=== PATIENT | female | born 1940 | race Caucasian/White ===

== ENCOUNTER 2017-05-29 11:24 | Inpatient (IN) ==
[2017-05-29 11:47] LABS: ALLEN TEST YES; BLOOD TYPE ARTERIAL; DRAW SITE R RADIAL; METHB 0.8 % (0.0-1.5); MODALITY ROOM AIR; O2(CT) 16.4 mL/dL (15.0-23.0); PCO2(98.6) 48 mmHg (35-45); PO2(98.6) 57 mmHg (60-100); SAMPLE BLOOD; SAO2 94.1 % (95.0-100.0); THB 12.8 g/dL (11.5-17.4)
--- NOTE | 2017-05-29 11:47 | Diag Imaging Result Doc PS360 ---
EXAM: CHEST-PORTABLE HISTORY: AMS TECHNIQUE: AP portable upright at 1135 COMMENT: There is scoliosis of the thoracic spine with convexity to the right. There is no evidence of acute cardiac or pulmonary disease and compared to 11/19/2010 there is been no significant change in the appearance of the chest. IMPRESSION: Stable chest. Electronically signed by Cyril Alvarez 05/29/2017 11:45 AM
--- NOTE | 2017-05-29 12:16 | Diag Imaging Result Doc PS360 ---
EXAM: HEAD W/O CONTRAST HISTORY: AMS TECHNIQUE: CT of the head without contrast with dose reduction (clarity.) COMMENT: There is extensive abnormal lucency throughout the white matter both hemispheres with some cortical encephalomalacia in the right parietal lobe. There is no evidence of bleed mass effect or abnormal extra-axial fluid collection. The calvarium is intact. There is no evidence of acute paranasal sinus disease. IMPRESSION: Extensive chronic microvascular white matter disease. No definite evidence of acute disease. Electronically signed by Cyril Alvarez 05/29/2017 12:14 PM
[2017-05-29 12:36] LABS: MANUAL DIFF NEEDED? NO
[2017-05-29 12:42] LABS: BASO% 0.4 % (0.0-0.8); EOS% 6.9 % (0.0-10.0); HEMATOCRIT 38.5 % (37.0-47.0); HEMOGLOBIN 12.7 g/dL (12.0-16.0); LYMPH# 2.52 X1000 (1.2-3.4); LYMPH% 24.8 % (20.5-51.1); MCH 32.4 PG (27-31); MCV 98.2 FL (81-99); MONO# 1.01 X1000 (0.11-0.59); MONO% 9.9 % (1.7-9.3); PLT 290 X1000 (130-400); RBC 3.92 XMIL (4.2-5.4)
[2017-05-29 12:50] LABS: INR 0.98; PROTIME 10.3 Seconds (9.2-11.7); PTT 24.5 Seconds (22.0-36.0)
[2017-05-29 12:59] LABS: URINE MICRO REVIEW NEEDED? NO; URINE SOURCE CATH
[2017-05-29 13:03] LABS: BILIRUBIN URINE NEGATIVE (NEGATIVE); BLOOD URINE NEGATIVE (NEGATIVE); COLOR YELLOW; GLUCOSE URINE NEGATIVE (NEGATIVE); LEUKOCYTES URINE SMALL (NEGATIVE); NITRITE URINE NEGATIVE (NEGATIVE); PROTEIN URINE NEGATIVE (NEGATIVE); SP GRAVITY URINE 1.015; TURBIDITY URINE CLEAR (CLEAR); UROBILINOGEN URINE NORMAL (NORMAL)
[2017-05-29 13:04] LABS: UR EPITHELIAL CELLS <10 /HPF (<10); URINE BACTERIA 2+ /HPF; URINE CULTURE NEEDED? YES; URINE RBC <10 /HPF (<10)
[2017-05-29 13:17] LABS: CALCIUM 9.2 mg/dL (8.8-10.2); POTASSIUM 4.3 mmol/L (3.5-5.1); TOTAL BILIRUBIN 0.32 mg/dL (0.20-1.00)
[2017-05-29 13:31] LABS: UR AMPHETAMINES QUAL NONE DETECTED (NONE DETECT); UR BARBITUATES QUAL NONE DETECTED (NONE DETECT); UR BENZODIAZEPIN QUAL NONE DETECTED (NONE DETECT); UR CANNABINOIDS QUAL NONE DETECTED (NONE DETECT); UR COCAINE QUAL NONE DETECTED (NONE DETECT); UR METHADONE QUAL NONE DETECTED (NONE DETECT); UR OPIATES QUAL NONE DETECTED (NONE DETECT); UR OXYCODONE QUAL NONE DETECTED (NONE DETECT); UR PCP QUAL NONE DETECTED (NONE DETECT)
[2017-05-29] MEDS ORDERED: ROCEPHIN 1 GM/NS 1 GM/50 ML IVPB IV ONE (13:48)
[2017-05-29] MEDS ORDERED: ZOFRAN PO PRN (16:02)
[2017-05-29] MEDS ORDERED: NS 1,000 ML IV SCH (16:15)
--- NOTE | 2017-05-29 16:45 | HISTORY AND PHYSICAL ---
CHIEF COMPLAINT: Altered mental status. HISTORY OF PRESENT ILLNESS: Mrs. Grossman is a 77-year-old female with a history of hypertension, hyperlipidemia, and depression, arthritis and GERD who presents from home with altered mental status and questionable stroke-like symptoms. The patient is a poor historian and is somewhat altered now so at the bedside is able to give a fairly accurate history. She woke up this morning and tried to get out of bed and reportedly slid to the floor. Her family got her up in a chair and she had a blank stare on her face and was not verbally responsive. EMS was called and the patient was brought to the ER. A head CT was done, which showed chronic changes but nothing acute. Laboratory data is largely unremarkable. Chest x-ray does not show anything acute. On physical exam, the patient is confused but she follows commands and has a global weakness with left upper and lower extremity slightly more weak than the right. She has a pacemaker so MRI is unable to be done so she is going to be admitted for further treatment and evaluation. PAST MEDICAL HISTORY: 1. Hypothyroidism. 2. Hypertension. 3. Hyperlipidemia. 4. Arthritis. 5. Anxiety and depression. 6. Unknown cardiac rhythm disorder requiring pacemaker. SURGICAL HISTORY: She had a total left knee arthroplasty and ovarian cyst removal. She has also had a pacemaker placed. SOCIAL HISTORY: She does not smoke, drink or use drugs. is at the bedside. FAMILY HISTORY: Noncontributory. REVIEW OF SYSTEMS: A 14 point review of systems was obtained and found to be negative with the exception of the HPI. ALLERGIES: No known allergies. HOME MEDICATIONS: Norvasc 2.5 mg daily. Aspirin 81 mg daily. Citalopram 40 mg daily. Klonopin 0.5-1 mg p.o. b.i.d. as necessary. Dicyclomine 20 mg 4 times a day. Toxey 1 every 8 hours as needed Synthroid 75 mcg daily. Antivert 25 mg t.i.d. Mobic 7.5 mg daily. Prilosec 20 mg daily. Zofran 4 mg every 6 hours as needed. Pravastatin 40 mg daily. Triamterene hydrochlorothiazide 1 daily. PHYSICAL EXAMINATION: VITAL SIGNS: Blood pressure is 149/81, heart rate 66, respiratory rate is 20, O2 saturation 96% on 2 L. Temperature is 98 degrees. GENERAL: This is an elderly 77-year-old female, lying in hospital bed in no acute distress. NEUROLOGIC: The patient is awake, alert, but she is confused. She does have some mild will upper and lower extremity weakness on the left as compared to the right. She has poor rapid alternating movement. She is blind in her left eye but does have poor peripheral vision on the right. HEENT: Head is atraumatic and normocephalic. Her pupils are equal, and sluggish bilaterally. Oral mucosa is moist. Trachea is midline. There is no JVD. CHEST: Clear to auscultation bilaterally. CV: Regular rate and rhythm. S1, S2 is noted. GI: Soft, nondistended, nontender. Bowel sounds are positive. EXTREMITIES: Trace edema. Pulses palpable but diminished. DIAGNOSTIC DATA: Head CT, extensive chronic microvascular white matter disease. No definite evidence of acute disease. Chest x-ray is negative. EKG shows paced rhythm. WBC 10.17, hemoglobin 12.7, hematocrit 38.5, platelet count 290,000. INR 0.98. ABG on room air pH 7.4, CO2 48, O2 57, bicarb 27.9, lactate 0.6. Sodium 140, potassium 4.2, chloride 100, CO2 27, anion gap 13, BUN 22, creatinine 1.2. Glucose 106. LFTs within normal limits. Troponin negative. Albumin 4. UA shows possible UTI. Toxicology is negative. ASSESSMENT AND PLAN: 1. Stroke-like symptoms: We cannot do an MRI, given her pacemaker. Will recheck a CT either tomorrow or Wednesday morning. Monitor neuro status. Check echo and carotids. Make sure to continue aspirin and statin. Check a lipid panel and hemoglobin A1c in the morning. We will also consult physical therapy, social work and speech therapy. 2. Hypertension: We are going to hold off on any antihypertensives for now in case she has had a stroke to allow for permissive hypertension. Add p.r.n. IV if necessary systolic greater than 210. 3. Questionable urinary tract infection: Will continue Rocephin which was started in the ER, and follow cultures. 4. Hypothyroidism: We are going to check a thyroid panel in the morning. Continue Synthroid. 5. Deep vein thrombosis prophylaxis with Lovenox. Further recommendations to follow. Dictated by SUSAN Washington for Justen Ku MD cc: SUSAN Washington MD I have seen and examined patients and I agree with above evaluation and plan. Patient has been progressively getting weaker and confused. She is on chronic pain meds and was requesting fro more pain meds when I saw her. Ass: AMS likely from drugs side effect. patient has no focal signs. I doubt she has CVA. MTDD
--- NOTE | 2017-05-29 17:38 | PROVIDER DOCUMENTATION ---
This chart was entered by Tiff Nesbitt Scribe, acting as scribe for Chalo Caraballo MD. HPI-Neurological Disorder - General Stated Complaint: ams/failure to thrieve Time Seen by Provider: 05/29/17 11:18 Source: patient Allergies/Adverse Reactions: Patient Allergies Allergy/AdvReac Type Severity Reaction Status Date / Time No Known Allergies Allergy Verified 05/29/17 11:36 Home Medications: Home Medication List Medication Instructions Recorded Confirmed Last Taken Type Amlodipine Besylate [Norvasc] 2.5 mg PO DAILY 05/29/17 05/29/17 Unknown History Aspirin [Low Dose Aspirin EC] 81 mg PO DAILY 05/29/17 05/29/17 Unknown History Citalopram Hydrobromide 40 mg PO DAILY 05/29/17 05/29/17 Unknown History [Citalopram HBr] Clonazepam [Klonopin] 0.5 - 1 tab PO BID PRN 05/29/17 05/29/17 Unknown History Dicyclomine HCl 20 mg PO 4XDAY 05/29/17 05/29/17 Unknown History Hydrocodone/Acetaminophen [[place] 1 each PO Q8H PRN 05/29/17 05/29/17 Unknown History 10-325 Tablet] Levothyroxine [Synthroid] 75 microgm PO DAILY 05/29/17 05/29/17 Unknown History Meclizine HCl [Antivert] 25 mg PO TID PRN 05/29/17 05/29/17 Unknown History Meloxicam [Mobic] 7.5 mg PO DAILY 05/29/17 05/29/17 Unknown History Omeprazole [Prilosec] 20 mg PO DAILY 05/29/17 05/29/17 Unknown History Ondansetron HCl [Zofran] 4 mg PO Q6H PRN 05/29/17 05/29/17 Unknown History Pravastatin Sodium 40 mg PO DAILY 05/29/17 05/29/17 Unknown History Triamterene/Hydrochlorothiazid 1 each PO DAILY 05/29/17 05/29/17 Unknown History [Triamterene-Hctz 37.5-25 mg Tb] - History of Present Illness-Neuro Nature of Presenting Problem: Pt is a 77 year old female sent from home and came to the ED with a cc of general weakness and altered mental status. Pt has no family and did not answer questions or follow commands. Severity: reports: mild Onset/Duration: reports: unsure Timing: reports: still present Context: reports: other (altered mental status) Character of Altered Mental Status: reports: disoriented, decreased responsiveness Any recent trauma/injury?: reports: none Cognitive Baseline: poor alertness Associated Symptoms: reports: weakness Similar Symptoms Previously?: No Recently seen or treated by another doctor?: No Review of Systems - Adult - REVIEW OF SYSTEMS - ADULT ROS:: unobtainable per condition Constitutional: reports: no symptoms reported Eyes: reports: no symptoms reported Ears, Nose, Mouth & Throat: reports: no symptoms reported Cardiovascular: reports: no symptoms reported Respiratory: reports: no symptoms reported Gastrointestinal: reports: no symptoms reported Genitourinary: reports: no symptoms reported Musculoskeletal: reports: no symptoms reported Integumentary: reports: no symptoms reported Neurological: reports: no symptoms reported Psychiatric: reports: no symptoms reported Endocrine: reports: no symptoms reported Hematologic/Lymphatic: reports: no symptoms reported Allergic/Immunologic: reports: no symptoms reported All Other Systems: Reviewed and Negative Past History - Adult - PAST MEDICAL HISTORY-ADULT Review of Records: reports: Old Records Reviewed, Nursing Assessment Review Physical Exam- Neurological - Physical Exam-Neuro Initial Vital Signs Reviewed: Yes General Appearance: alert Eye Exam: bilateral eye: other (blind in left eye; strabismus) HENMT: normocephalic/atraumatic, moist mucous membranes Head Injury: no evidence of injury Neck: non-tender Respiratory: chest non-tender, lungs clear Cardiovascular: normal peripheral pulses, regular rate, rhythm Abdominal Exam: normal bowel sounds, non tender, soft 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: abnormal eye position Neurologic: other (catatonia although pretective reflex intact) Integumentary: other (bilat knee scars) Psych/Mental Status: disoriented x 3 Progress - PLAN OF CARE/RESULTS Progress/Plan/Lab Results: Vital Signs - 8 hr 05/29/17 11:25 05/29/17 12:25 Temperature 98.8 F Pulse Rate 61 60 Respiratory Rate 16 19 Blood Pressure 151/96 138/73 O2 Sat by Pulse Oximetry 93 L 99 Laboratory Results - last 24 hr 05/29/17 05/29/17 05/29/17 11:35 12:25 12:25 WBC 10.17 RBC 3.92 L Hgb 12.7 Hct 38.5 MCV 98.2 MCH 32.4 H MCHC 33.0 RDW Std Deviation 15.2 H Plt Count 290 MPV 10.0 Neut % (Auto) 58.0 Lymph % (Auto) 24.8 [place] % (Auto) 9.9 H Eos % (Auto) 6.9 Baso % (Auto) 0.4 Neut # (Auto) 5.90 Lymph # (Auto) 2.52 [place] # (Auto) 1.01 H Eos # (Auto) 0.70 Baso # (Auto) 0.04 PT INR PTT (Actin FS) Specimen Type ARTERIAL Sample Site R RADIAL pH 7.40 pCO2 48 H pO2 57 L HCO3 27.9 H Base Excess 4.0 H Oxyhemoglobin 91.1 L ABG O2 Sat (Calculated) 16.4 ABG O2 Saturation 94.1 L ABG Carboxyhemoglobin 2.40 ABG Methemoglobin 0.8 Al Test YES A-a O2 Difference 33.0 Total Hemoglobin 12.8 Lactate 0.60 Blood Gas Modality ROOM AIR FiO2 % 21.0 Sodium Potassium Chloride Carbon Dioxide Anion Gap BUN Creatinine Estimated GFR/1.73 m2 BUN/Creatinine Ratio Glucose Calculated Osmolality Calcium Total Bilirubin AST ALT Alkaline Phosphatase Creatine Kinase Troponin T Total Protein Albumin Globulin Albumin/Globulin Ratio Plasma Lactate Free T4 Urine Source Urine Color Urine Turbidity Urine pH Ur Specific [place] Urine Protein Ur Glucose (Stick) Ur Ketones (Stick) Urine Blood Urine Nitrite Urine Bilirubin Urobilinogen Dipstick Urine Leukocytes Urine WBC (Auto) Urine RBC (Auto) U Epithel Cells (Auto) Urine Bacteria (Auto) Urine Opiates Screen Ur Oxycodone Screen Ur Methadone, Qual Ur Barbiturates Screen Ur Phencyclidine Scrn Ur Amphetamines Screen U Benzodiazepines Scrn Urine Cocaine Screen U Cannabinoids Screen Plasma/Serum Ethyl Alc 05/29/17 05/29/17 05/29/17 12:25 12:25 12:25 WBC RBC Hgb Hct MCV MCH MCHC RDW Std Deviation Plt Count MPV Neut % (Auto) Lymph % (Auto) [place] % (Auto) Eos % (Auto) Baso % (Auto) Neut # (Auto) Lymph # (Auto) [place] # (Auto) Eos # (Auto) Baso # (Auto) PT 10.3 INR 0.98 PTT (Actin FS) 24.5 Specimen Type Sample Site pH pCO2 pO2 HCO3 Base Excess Oxyhemoglobin ABG O2 Sat (Calculated) ABG O2 Saturation ABG Carboxyhemoglobin ABG Methemoglobin Al Test A-a O2 Difference Total Hemoglobin Lactate Blood Gas Modality FiO2 % Sodium 140 Potassium 4.3 Chloride 100 Carbon Dioxide 27 Anion Gap 13 BUN 22 Creatinine 1.2 H Estimated GFR/1.73 m2 44 BUN/Creatinine Ratio 18 Glucose 106 H Calculated Osmolality 283 Calcium 9.2 Total Bilirubin 0.32 AST 22 ALT 13 Alkaline Phosphatase 57 Creatine Kinase 169 Troponin T Total Protein 8.0 Albumin 4.0 Globulin 4.0 Albumin/Globulin Ratio 1.0 Plasma Lactate 0.7 Free T4 Urine Source Urine Color Urine Turbidity Urine pH Ur Specific [place] Urine Protein Ur Glucose (Stick) Ur Ketones (Stick) Urine Blood Urine Nitrite Urine Bilirubin Urobilinogen Dipstick Urine Leukocytes Urine WBC (Auto) Urine RBC (Auto) U Epithel Cells (Auto) Urine Bacteria (Auto) Urine Opiates Screen Ur Oxycodone Screen Ur Methadone, Qual Ur Barbiturates Screen Ur Phencyclidine Scrn Ur Amphetamines Screen U Benzodiazepines Scrn Urine Cocaine Screen U Cannabinoids Screen Plasma/Serum Ethyl Alc 05/29/17 05/29/17 05/29/17 12:25 12:25 12:45 WBC RBC Hgb Hct MCV MCH MCHC RDW Std Deviation Plt Count MPV Neut % (Auto) Lymph % (Auto) [place] % (Auto) Eos % (Auto) Baso % (Auto) Neut # (Auto) Lymph # (Auto) [place] # (Auto) Eos # (Auto) Baso # (Auto) PT INR PTT (Actin FS) Specimen Type Sample Site pH pCO2 pO2 HCO3 Base Excess Oxyhemoglobin ABG O2 Sat (Calculated) ABG O2 Saturation ABG Carboxyhemoglobin ABG Methemoglobin Al Test A-a O2 Difference Total Hemoglobin Lactate Blood Gas Modality FiO2 % Sodium Potassium Chloride Carbon Dioxide Anion Gap BUN Creatinine Estimated GFR/1.73 m2 BUN/Creatinine Ratio Glucose Calculated Osmolality Calcium Total Bilirubin AST ALT Alkaline Phosphatase Creatine Kinase Troponin T < 0.010 Total Protein Albumin Globulin Albumin/Globulin Ratio Plasma Lactate Free T4 1.26 Urine Source CATH Urine Color YELLOW Urine Turbidity CLEAR Urine pH 7.0 Ur Specific [place] 1.015 Urine Protein NEGATIVE Ur Glucose (Stick) NEGATIVE Ur Ketones (Stick) NEGATIVE Urine Blood NEGATIVE Urine Nitrite NEGATIVE Urine Bilirubin NEGATIVE Urobilinogen Dipstick NORMAL Urine Leukocytes SMALL A Urine WBC (Auto) 10-20 A Urine RBC (Auto) <10 U Epithel Cells (Auto) <10 Urine Bacteria (Auto) 2+ Urine Opiates Screen Ur Oxycodone Screen Ur Methadone, Qual Ur Barbiturates Screen Ur Phencyclidine Scrn Ur Amphetamines Screen U Benzodiazepines Scrn Urine Cocaine Screen U Cannabinoids Screen Plasma/Serum Ethyl Alc 05/29/17 12:45 WBC RBC Hgb Hct MCV MCH MCHC RDW Std Deviation Plt Count MPV Neut % (Auto) Lymph % (Auto) [place] % (Auto) Eos % (Auto) Baso % (Auto) Neut # (Auto) Lymph # (Auto) [place] # (Auto) Eos # (Auto) Baso # (Auto) PT INR PTT (Actin FS) Specimen Type Sample Site pH pCO2 pO2 HCO3 Base Excess Oxyhemoglobin ABG O2 Sat (Calculated) ABG O2 Saturation ABG Carboxyhemoglobin ABG Methemoglobin Al Test A-a O2 Difference Total Hemoglobin Lactate Blood Gas Modality FiO2 % Sodium Potassium Chloride Carbon Dioxide Anion Gap BUN Creatinine Estimated GFR/1.73 m2 BUN/Creatinine Ratio Glucose Calculated Osmolality Calcium Total Bilirubin AST ALT Alkaline Phosphatase Creatine Kinase Troponin T Total Protein Albumin Globulin Albumin/Globulin Ratio Plasma Lactate Free T4 Urine Source Urine Color Urine Turbidity Urine pH Ur Specific [place] Urine Protein Ur Glucose (Stick) Ur Ketones (Stick) Urine Blood Urine Nitrite Urine Bilirubin Urobilinogen Dipstick Urine Leukocytes Urine WBC (Auto) Urine RBC (Auto) U Epithel Cells (Auto) Urine Bacteria (Auto) Urine Opiates Screen NONE DETECTED Ur Oxycodone Screen NONE DETECTED Ur Methadone, Qual NONE DETECTED Ur Barbiturates Screen NONE DETECTED Ur Phencyclidine Scrn NONE DETECTED Ur Amphetamines Screen NONE DETECTED U Benzodiazepines Scrn NONE DETECTED Urine Cocaine Screen NONE DETECTED U Cannabinoids Screen NONE DETECTED Plasma/Serum Ethyl Alc Orders Category Date Time Status Admit - [facility] Routine AdmDCTranf 05/29/17 16:02 Ordered Activity - Strict Bedrest Q1D Care 05/29/17 16:02 Active Aspiration Precautions DIRECTED Care 05/29/17 16:02 Active Cardiac Monitoring DIRECTED Care 05/29/17 11:26 Completed Elevate Head of Bed DIRECTED Care 05/29/17 16:02 Active Finger Stick Blood Sugar (ED) DIRECTED Care 05/29/17 11:26 Completed IV Insertion ORDERED Care 05/29/17 16:02 Completed Intake and Output-Strict ORDERED Care 05/29/17 16:02 Active Neurological Check ORDERED Care 05/29/17 16:02 Active Saline Loc NOW Care 05/29/17 11:26 Completed Straight Catheterization ORDERED Care 05/29/17 11:26 Completed Z-Document. for Tele Applied ORDERED Care 05/29/17 16:02 Active CHEST-PORTABLE [RAD] Stat Exams 05/29/17 11:26 Completed HEAD W/O CONTRAST [CT] Stat Exams 05/29/17 11:27 Completed ABG [RESP] Routine Lab 05/29/17 11:35 Completed ALCOHOL BLOOD Stat Lab 05/29/17 12:25 Completed CBC WITH ELECTRONIC DIFF [HEME] Stat Lab 05/29/17 12:25 Completed CK PROFILE [SP CHEM] Stat Lab 05/29/17 12:25 Completed COMPREHENSIVE METABOLIC PANEL [CHEM] Stat Lab 05/29/17 12:25 Completed LACTATE, PLASMA [CHEM] Stat Lab 05/29/17 12:25 Completed LIPID PROFILE W/DIR LDL [LIPIDS] Routine Lab 05/30/17 06:00 Ordered PROTIME WITH INR [COAG] Stat Lab 05/29/17 12:25 Completed PTT [COAG] Stat Lab 05/29/17 12:25 Completed TROPONIN T Stat Lab 05/29/17 12:25 Completed URINALYSIS W/POSS RFLX CULT-1 [URINALYSIS] Stat Lab 05/29/17 12:45 Completed URINE CULTURE [RM] Routine Lab 05/29/17 13:15 Received URINE DRUG SCREEN Stat Lab 05/29/17 12:45 Completed Aspirin EC Med 05/30/17 09:00 Active 81 mg PO DAILY CefTRIAXONE 1 GM/NS [Rocephin 1 gm/Ns] Med 05/29/17 13:48 Discontinued 1 gm in 50 ml IV NOW Citalopram [Celexa] Med 05/30/17 09:00 Active 40 mg PO DAILY Dicyclomine [Bentyl] Med 05/29/17 17:00 Active 20 mg PO 4XDAY Levothyroxine [Synthroid] Med 05/30/17 07:00 Active 75 microgm PO DAILY@0700 Omeprazole [Prilosec] Med 05/30/17 09:00 Active 20 mg PO DAILY Ondansetron [Zofran] Med 05/29/17 16:02 Active 4 mg PO Q6H PRN PRN PRAVAstatin [Pravachol] Med 05/30/17 09:00 Discontinued 40 mg PO DAILY Pulse Oximetry Stat Oth 05/29/17 11:26 Completed Telemetry [OM.EQ] Routine Oth 05/29/17 16:02 Active EKG [EKG] Stat Ther 05/29/17 11:26 Ordered Physical Therapy Eval/Treatment [OM.PT] Routine Ther 05/29/17 16:02 Active Speech Evaluation [OM.SPT] Routine Ther 05/29/17 16:02 Active Transfer/Admit Order [TRANSFER] Routine Transfer 05/29/17 14:40 Completed Result Diagrams: 05/29/17 12:25 05/29/17 12:25 - REASSESSMENT Reassessment #1 Time Reassessed: 11:24 (family came and discussed with Dr. Caraballo that pt was seen normal last night. This morning pt was shaking and not talking. ) Reassessment #2 Time Reassessed: 12:28 (Pt is still not talking. is in the room with pt. ) Status: unchanged - EKG 1 Time of EKG reading by physician:: 11:36 EKG Read and Signed by:: Chalo Caraballo EKG Interpretation (*Must complete 3 of following elements*): Normal Rate: 64 Rhythm: NSR - XRAY 1 XRAY Study: Chest (STABLE) - CT/MRI 1 CT Study: Head (extensive chronic microvascular white matter disease no acute disease) - CONSULTS/PCP/HOSPITALIST Notification #1 *Consult/PCP/Hospitalist*: Dr. Ku Time Discussed: 13:48 Consult Disposition: Admit Departure - Departure Date of Disposition Decision: 05/29/17 Time of Disposition Decision: 13:48 DIAGNOSIS: TIA (transient ischemic attack) Disposition: ADMITTED INPATIENT 09 Certified Medical Emergency: Emergent Condition: Stable - Critical Care Note This patient required my direct & personal management of CC.: Yes Total Time (mins): 35 Critical Care Statement: This patient required my direct personal management to treat or rule out processes, the absence of which, could potentiallly result in sudden, clinically significant life or limb threatening deterioration. Attestation - Physician/ SYLVIA Attestation Patient care was provided by Advanced Practice Provider:: No The physician spent face to face time with patient:: Yes Advanced Practice Provider documentation review:: Supervising physician onsite and consulted in the evaluation and care of this patient. The physician did have a face to face encounter with the patient. This chart was documented by the indicated scribe, (Tiff Nesbitt Scribe) and accurately reflects the services I performed and decisions made by me, Chalo Caraballo MD, as attested by the provider's signature.
[2017-05-29] MEDS: NS 1,000 ML IV SCH (18:04)
[2017-05-29] MEDS: NORCO-10 PO SCH ×2 (18:08→20:47)
[2017-05-29] MEDS: ROCEPHIN 1 GM/NS 1 GM/50 ML IVPB IV SCH (18:09)
[2017-05-29] MEDS: BENTYL PO SCH ×2 (18:09→20:46)
[2017-05-29] MEDS ORDERED: PNEUMOVAX 23 IM ONE (18:51)
[2017-05-29] MEDS: LIPITOR PO SCH (20:51)
[2017-05-30] MEDS: SYNTHROID PO SCH (06:01)
[2017-05-30 06:17] LABS: HEMATOCRIT 36.7 % (37.0-47.0); HEMOGLOBIN 11.9 g/dL (12.0-16.0); MCH 31.5 PG (27-31); MCHC 32.4 g/dL (33-37); MCV 97.1 FL (81-99); MPV 10.4 FL (7.4-10.4); RBC 3.78 XMIL (4.2-5.4)
[2017-05-30 06:27] LABS: HEMOGLOBIN A1C 5.6 % (4.8-6.0)
[2017-05-30 06:50] LABS: CALCIUM 9.4 mg/dL (8.8-10.2); POTASSIUM 4.4 mmol/L (3.5-5.1)
[2017-05-30] MEDS ORDERED: PRAVACHOL PO SCH (09:00)
[2017-05-30] MEDS: PRILOSEC PO SCH (10:17)
[2017-05-30] MEDS: BENTYL PO SCH ×4 (10:17→20:27)
[2017-05-30] MEDS: LOVENOX SUBQ SCH (10:18)
[2017-05-30] MEDS: CELEXA PO SCH (10:18)
[2017-05-30] MEDS: ASPIRIN EC PO SCH (10:18)
[2017-05-30] MEDS: NORCO-10 PO SCH ×2 (10:18→20:27)
[2017-05-30] MEDS: NS 1,000 ML IV SCH ×2 (10:19→17:53)
--- NOTE | 2017-05-30 15:42 | PROGRESS NOTE ---
DATE: 05/30/2017 The patient is a 77-year-old who presented with altered mental status. She has a history of hypertension, hyperlipidemia, depression, arthritis gastroesophageal reflux. Presented from home with altered mental status, questionable stroke-like symptoms. The patient a poor historian, somewhat altered, so her gave account of the events that preceded this. Woke up in the morning, tried to get out of bed and, reportedly, slid to the floor. The family got her up in a chair. She had a blank stare on her face and not verbally responsive. EMS was called and came to the emergency room. CT of the head was done. It showed chronic changes, but nothing acute. Laboratory at mostly unremarkable. Chest x-ray did not show anything acute. She was confused, but followed commands, had a global weakness. Left upper and lower extremities slightly more weak than the right. She had a pacemaker, so MRI was not done. She had a CT scan done. PAST MEDICAL HISTORY: 1. Hypothyroidism. 2. Hypertension. 3. Hyperlipidemia. 4. Arthritis. 5. Anxiety/depression. 6. Unknown cardiac rhythm disorder, requiring pacemaker. PAST SURGICAL HISTORY: 1. Total left knee arthroplasty. 2. Ovarian cyst removed. 3. Pacemaker placement. DIAGNOSES/PLAN: She was admitted with: 1. Questionable cerebrovascular accident-like symptoms. Could not do an MRI because of pacemaker. CT is supposed to be done today. Continue neuro checks, continue aspirin and statin. Check a hemoglobin A1c today. Family feels she is better, she is more awake and alert. Still pretty weak. 2. Hypertension. 3. Questionable urinary tract infection. She was treated with Rocephin. 4. Hypothyroidism. She appears to be euthyroid. MEDICATIONS: On review of her orders, she is on: 1. Aspirin 81 mg daily. 2. Lipitor 40 mg a day. 3. Celexa 40 mg a day. 4. Dicyclomine 20 mg 4 times a day. 5. Lovenox 40 mg subcutaneously q.24 hours. 6. Hydrocodone 10 mg twice a day. 7. Synthroid 75 mcg a day. 8. Normal saline at 85 mL an hour. 9. Prilosec 20 mg a day. 10. Ceftriaxone 1 g q.24 hours. I do not see any change at this point. We will check lab again tomorrow. She is going to have speech and physical therapy. Carotid ultrasound, I think, is scheduled. cc: Al Acosta MD
[2017-05-30] MEDS: ROCEPHIN 1 GM/NS 1 GM/50 ML IVPB IV SCH (17:00)
[2017-05-30] MEDS: LIPITOR PO SCH (20:27)
[2017-05-31] MEDS: SYNTHROID PO SCH (06:15)
--- NOTE | 2017-05-31 06:15 | EKG Report ---
Test Performed on : 05/29/2017 11:36:22 AM Test Reason : AMS Blood Pressure : / mmHG Vent. Rate : 064 BPM Atrial Rate : 064 BPM P-R Int : 188 ms QRS Dur : 092 ms QT Int : 428 ms P-R-T Axes : 000 076 048 degrees QTc Int : 441 ms Normal sinus rhythm. Normal ECG When compared with ECG of 19-NOV-2010 09:16, Nonspecific T wave abnormality now evident in Inferior leads QT has shortened Unconfirmed Result
[2017-05-31 06:32] LABS: HEMATOCRIT 39.9 % (37.0-47.0); HEMOGLOBIN 13.3 g/dL (12.0-16.0); MCH 31.7 PG (27-31); MCHC 33.3 g/dL (33-37); MPV 10.3 FL (7.4-10.4); RBC 4.2 XMIL (4.2-5.4)
[2017-05-31 07:00] LABS: CALCIUM 9.4 mg/dL (8.8-10.2)
--- NOTE | 2017-05-31 07:31 | EKG Report ---
Test Performed on : 05/29/2017 4:08:22 PM Test Reason : No Order in [employer] Blood Pressure : / mmHG Vent. Rate : 064 BPM Atrial Rate : 064 BPM P-R Int : 226 ms QRS Dur : 090 ms QT Int : 436 ms P-R-T Axes : 077 -10 056 degrees QTc Int : 449 ms Atrial-paced rhythm with prolonged AV conduction Abnormal ECG When compared with ECG of 29-MAY-2017 11:36, (Unconfirmed) Electronic atrial pacemaker has replaced Sinus rhythm. Questionable change in QRS axis Confirmed by Duglas Hernandez DO ([id number]) on 06/01/2017 7:25:07 AM
--- NOTE | 2017-05-31 09:57 | PROGRESS NOTE ---
DATE: 05/31/2017 SUBJECTIVE: Recall, patient was admitted. A 77-year-old admitted on the . Brought in because of altered mental status. A 77-year-old with a history of hypertension, hyperlipidemia, depression, arthritis, gastroesophageal reflux disease. Presented from home with altered mental status. They thought she was having stroke-like symptoms. The patient is a poor historian but the family was able to fill in the gaps. On physical exam in the emergency room, she followed commands and had global weakness with left upper and lower extremity more weak than the right. She has had a long history of anxiety and depression. She was admitted with altered mental status. I do not know that they found any focal neurologic changes. She is better but she is still pretty weak. She is requesting more pain medicine. She does not feel twice a day is strong enough but she is awake and alert. She wants her Mccormick catheter in another day because she just does not feel strong enough to be able to go to the bathroom. PHYSICAL EXAMINATION: Vital Signs: Today, temperature 98.7 degrees, pulse 87, respirations 24, and blood pressure 194/82. Lungs: Clear anterolateral. Cardiovascular Examination: Regular rhythm and rate without murmur or S3. Abdomen: No complaints. Extremities: No pedal edema. Is and Os: Urine output was over 3 L. LAB: From this morning, white count 11,910, hematocrit 39, platelet count 237,000. Sodium 137, potassium 4, chloride 99, BUN 18, creatinine 1.2 which has come down from 1.4 on the . ASSESSMENT AND PLAN: 1. Generalized weakness. Suspect multifactorial but I suspect multiple medications so we will look through and see what medicines we can discontinue. She is adamant that she wants more of her pain medicine so we will go up to 3 times a day on that. 2. Hypertension. 3. Questionable urinary tract infection. She had some sediment, was put on Rocephin. 4. Hypothyroidism, appears to be history. She is euthyroid at the present time. 5. Review of her orders, review of her current medications. Aspirin 81 mg a day, Lipitor 40 mg a day, Celexa 40 mg a day. She gets her Bentyl 20 mg 4 times a day. She is on Lovenox for deep venous thrombosis prophylaxis. She is getting normal saline at 85 mL an hour. She gets her Synthroid, Prilosec at 20 mg a day. She is getting hydrocodone right now twice a day. We will go up to three times a day on her hydrocodone. She is already had speech therapy and physical therapy. I had a discussion with the importance of her getting her strength back. If she cannot walk, we will have to pursue rehab or even a penitentiary so it is imperative that she get some strength back in her legs. cc: Al Acosta MD
[2017-05-31] MEDS: CELEXA PO SCH (10:00)
[2017-05-31] MEDS: BENTYL PO SCH ×4 (10:00→21:35)
[2017-05-31] MEDS: PRILOSEC PO SCH (10:01)
[2017-05-31] MEDS: ASPIRIN EC PO SCH (10:01)
[2017-05-31] MEDS: LOVENOX SUBQ SCH (10:02)
--- NOTE | 2017-05-31 14:02 | ECHO REPORT ---
ORDER DATE: 05/29/2017 INDICATION: CVA versus TIA. FINDINGS: 1. Right atrium is normal in size at 2.9 cm. 2. Moderate tricuspid regurgitation. RV systolic pressure of 57. 3. Normal RV size and systolic function. 4. Trace pulmonic insufficiency. 5. Normal left atrial size with a dimension of 3.8 cm. 6. No mitral valve prolapse. Mild mitral regurgitation. There is significant mitral annular calcification noted. There is the suggestion of moderate mitral stenosis. Mean gradient of 6. Valve area was calculated at 2.7. 7. Normal LV size, end-diastolic dimension of 3.3. Borderline mild left ventricular hypertrophy with a posterior and interventricular septal wall thickness 1.2 and 1.1 cm respectively. Normal LV systolic function. Calculated EF of 68% with normal wall motion. 8. Aortic valve appears to open well. Although it is somewhat sclerotic, it does not appear stenotic. There is mild aortic insufficiency. The valve is trileaflet. 9. Aorta appears normal in visualized segments. 10. No pericardial effusion seen. cc: MD Micah Bartlett CRNP
[2017-05-31] MEDS: NORCO-10 PO SCH ×2 (15:43→21:35)
[2017-05-31] MEDS: NS 1,000 ML IV SCH (18:56)
[2017-05-31] MEDS: ROCEPHIN 1 GM/NS 1 GM/50 ML IVPB IV SCH (18:57)
[2017-05-31] MEDS: LIPITOR PO SCH (21:35)
[2017-06-01] MEDS: SYNTHROID PO SCH ×2 (05:51→06:34)
[2017-06-01] MEDS: NS 1,000 ML IV SCH (06:34)
[2017-06-01 06:45] LABS: HEMATOCRIT 37.2 % (37.0-47.0); HEMOGLOBIN 12.4 g/dL (12.0-16.0); MCH 31.7 PG (27-31); MCHC 33.3 g/dL (33-37); MCV 95.1 FL (81-99); MPV 10.8 FL (7.4-10.4); RBC 3.91 XMIL (4.2-5.4)
[2017-06-01 07:06] LABS: CALCIUM 8.9 mg/dL (8.8-10.2); POTASSIUM 3.8 mmol/L (3.5-5.1)
--- NOTE | 2017-06-01 10:00 | DISCHARGE SUMMARY ---
ADMISSION DATE: 05/29/2017 DISCHARGE DATE: 06/01/2017 HISTORY OF PRESENT ILLNESS: This is a 77-year-old with a history of hypertension, hyperlipidemia, depression, arthritis, gastroesophageal reflux. Presented from home with altered mental status. Questionable stroke-like symptoms. The patient was a poor historian but family, , stated she was altered. Mental status altered, and confused and lethargic. Woke up the morning of admission, tried to get out of bed, just slid to the floor. Family got her up in a chair. Had a blank stare on her face, not verbally responsive. EMS was called. Patient was brought to the emergency room. Head CT was done which showed chronic changes, nothing acute. Laboratory largely unremarkable. A chest x-ray did not show anything acute but admitted with metabolic encephalopathy, altered mental status. PAST MEDICAL HISTORY: 1. Hypothyroidism. 2. Hypertension. 3. Hyperlipidemia. 4. Arthritis. 5. Anxiety and depression. 6. Unknown cardiac rhythm disorder requiring pacemaker. SURGICAL HISTORY: She has a total left knee arthroplasty in the past, ovarian cyst removed. She has also had a pacemaker placed. HOSPITAL COURSE: The Klonopin was stopped. Her pain medicines were stopped. She woke up, was much more alert. Began physical therapy. She was able to ambulate. She did request that we go back up on her pain medicine because of her back pain but we held the Klonopin. She did well, wanted to go home on 06/01/2017, and felt she could go home. was in agreement with that. DISCHARGE MEDICATIONS: She will go home on aspirin 81 mg daily, Lipitor 40 mg a day. We will stop her Rocephin. We were giving that empirically. Celexa 40 mg a day, Bentyl 20 mg 4 times a day, [place] 10 mg t.i.d., Synthroid 75 mcg a day, Prilosec 20 mg a day, Zofran which she takes 4 mg p.o. q.6 hours p.r.n. Advised them to quit the Klonopin. cc: Al Acosta MD
[2017-06-01] MEDS: PRILOSEC PO SCH (11:33)
[2017-06-01] MEDS: NORCO-10 PO SCH (11:33)
[2017-06-01] MEDS: LOVENOX SUBQ SCH (11:33)
[2017-06-01] MEDS: BENTYL PO SCH (11:33)
[2017-06-01] MEDS: ASPIRIN EC PO SCH (11:33)
[2017-06-01] MEDS: CELEXA PO SCH (11:33)
[2017-06-01 12:03] VITALS: BP 194/81
--- NOTE | 2017-06-01 15:22 | Carotid Study ---
DATE: 05/29/2017 PROCEDURE: Carotid duplex imaging. REFERRING PHYSICIAN: Justen Ku MD. INTERPRETING PHYSICIAN: Johnnie Mai MD. TECH: [place]. INDICATIONS: Altered mental status and left-sided weakness. OBSERVED DATA RIGHT LEFT Brachial Blood Pressure Carotid Pulse Bruits: Carotid/Sub DIAGRAM OF ULTRASOUND IMAGING R L RIGHT INT EXT INT EXT LEFT Vishal (cm/s) Vishal (cm/s) Subclavian 180/0 Subclavian 93/0 CCA Proximal 90/18 CCA Proximal 82/18 CCA Distal 82/18 CCA Distal 75/20 Bulb 86/18 Bulb 75/15 ICA Proximal 132/26 ICA Proximal 211/30 ICA Mid 124/9 ICA Mid 152/22 ICA Distal 133/8 ICA Distal 83/17 ECA 235/11 ECA 241/15 Vertebral 54/19 Vertebral 83/21 Antegrade Antegrade ICA/CCA Ratio 1.5 ICA/CCA Ratio 2.6 % Stenosis 40 to 59 % Stenosis 60 to 79 PHYSICIAN INTERPRETATION: Plaque exists at the takeoff of the right internal, the left bulb, and the takeoff of the left internal that produces an estimated stenosis of 40% to 59% on the right and 60% to 79% on the left. The right vertebral is minimal. The left vertebral is dominant. There is antegrade vertebral flow. cc: MD Micah Lee CRNP
== END 2017-06-01 14:26 | disposition home or self-care (01) ==
LOC: ED 11:24 → 4N 15:02 → SUATTDRO 15:02
PROVIDERS: ATTEND Emergency Medicine

== ENCOUNTER 2019-03-21 14:22 | Inpatient (IN) ==
--- NOTE | 2019-03-21 16:00 | Diag Imaging Result Doc PS360 ---
CHEST-PORTABLE - 03/21/2019 INDICATION: stroke like symptoms COMPARISON: 05/29/2017 FINDINGS: Stable left sided pacemaker. Stable mild cardiomegaly. There is some mild perihilar infiltrate on the left side. No pneumothorax or pleural effusion. IMPRESSION: Cardiomegaly. Mild nonspecific left perihilar infiltrate. This may reflect pneumonia or aspiration. Electronically signed by Cristiano Grant 03/21/2019 3:57 PM
--- NOTE | 2019-03-21 16:03 | Diag Imaging Result Doc PS360 ---
EXAM: CT HEAD W/O CONTRAST INDICATION: stroke like symptoms TECHNIQUE: This exam was performed using automated exposure control, adjustment of mA or kV according to patient size, and/or use of iterative reconstruction technique. COMPARISON: 05/29/2017 FINDINGS: There is extensive low-attenuation in the periventricular and subcortical white matter suggesting advanced microangiopathy, stable. There are stable chronic appearing lacunar infarcts involving the deep corbett matter bilaterally and mild focal encephalomalacia involving the right parietal lobe, stable. There is no definite acute infarct given the limited sensitivity of CT versus MRI. There is no discrete intracranial mass, mass effect, or intracranial hemorrhage. The surrounding soft tissues and bony structures are essentially unremarkable. IMPRESSION: Stable advanced chronic changes as described. No definite acute intracranial pathology by CT. Electronically signed by Alton Joseph 03/21/2019 4:00 PM
--- NOTE | 2019-03-21 16:51 | PROVIDER DOCUMENTATION ---
HPI-Neurological Disorder - General Chief Complaint: Altered Mental Status Stated Complaint: DECREASED LOC Time Seen by Provider: 03/21/19 15:12 Allergies/Adverse Reactions: Patient Allergies Allergy/AdvReac Type Severity Reaction Status Date / Time No Known Allergies Allergy Verified 11/25/18 12:55 Home Medications: Home Medication List Medication Instructions Recorded Confirmed Last Taken Type Hydrocodone/Acetaminophen [Atkins 1 each PO Q8H PRN 05/29/17 11/25/18 11/23/18 History 10-325 Tablet] Levothyroxine [Synthroid] 75 microgm PO DAILY 05/29/17 11/25/18 11/24/18 08:00 History Pravastatin Sodium 40 mg PO DAILY 05/29/17 11/25/18 11/24/18 21:00 History Citalopram [Celexa] 40 mg PO DAILY tablet 06/01/17 11/25/18 11/24/18 21:00 Rx Dicyclomine [Bentyl] 20 mg PO 4XDAY capsule 06/01/17 11/25/18 11/24/18 21:00 Rx Ondansetron [Zofran] 4 mg PO Q6H PRN PRN #0 tablet 06/01/17 11/25/18 11/23/18 Rx Atenolol [Tenormin] 50 mg PO DAILY 11/23/18 11/25/18 11/24/18 08:00 History Clonazepam 0.5 mg PO DAILY 11/23/18 11/25/18 11/24/18 21:00 History Triamterene/Hydrochlorothiazid 1 each PO DAILY 11/23/18 11/25/18 11/24/18 08:00 History [Triamterene-Hctz 37.5-25 mg Cp] - History of Present Illness-Neuro Nature of Presenting Problem: Pt brought by EMS from orthopedics clinic due to AMS. by time EMS there she was confused, respond to verbal stimuli slowly. vitals stable on the route to the hospital. pt is confused at the exam time and Hx limited per condition. report left ankle reduction under sedation in the ER yesterday and she is confused since that time but she is getting worse. denies Hx of IN, stroke, DM. report Hx of HTN. Review of Systems - Adult - REVIEW OF SYSTEMS - ADULT ROS:: limited per condition Constitutional: reports: no symptoms reported Past History - Adult - PAST MEDICAL HISTORY-ADULT Review of Records: reports: Old Records Reviewed, Nursing Assessment Review, Medications Reviewed, Social history reviewed & non-contributory. 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, no motor/sensory deficits Integumentary: normal color, normal turgor - Glascow Coma Scale Best Eye Response: (3) open to voice Best Verbal Response: (4) confused conversation (GCS 13 which limit Neuro exam) Best Motor Response: (6) obeys commands Progress - PLAN OF CARE/RESULTS Progress/Plan/Lab Results: Vital Signs - 8 hr 03/21/19 18:31 03/21/19 18:50 03/21/19 19:00 Pulse Rate 67 Respiratory Rate 19 Blood Pressure 121/58 O2 Sat by Pulse Oximetry 95 95 97 03/21/19 19:10 03/21/19 19:19 03/21/19 19:20 Pulse Rate Respiratory Rate Blood Pressure 101/44 O2 Sat by Pulse Oximetry 99 92 L 97 03/21/19 19:30 03/21/19 19:31 03/21/19 19:40 Pulse Rate Respiratory Rate Blood Pressure O2 Sat by Pulse Oximetry 90 L 98 98 03/21/19 19:50 03/21/19 19:52 03/21/19 20:00 Pulse Rate 67 67 Respiratory Rate Blood Pressure 103/36 O2 Sat by Pulse Oximetry 83 L 96 98 03/21/19 20:02 03/21/19 20:10 03/21/19 20:20 Pulse Rate 66 65 Respiratory Rate Blood Pressure 96/44 O2 Sat by Pulse Oximetry 95 96 96 03/21/19 20:29 03/21/19 20:30 03/21/19 20:31 Pulse Rate 66 66 66 Respiratory Rate Blood Pressure 102/60 90/45 O2 Sat by Pulse Oximetry 03/21/19 20:40 03/21/19 20:50 03/21/19 21:00 Pulse Rate 65 66 67 Respiratory Rate Blood Pressure O2 Sat by Pulse Oximetry 93 L 88 L 94 L 03/21/19 21:01 Pulse Rate 68 Respiratory Rate Blood Pressure 123/74 O2 Sat by Pulse Oximetry 95 Laboratory Results - last 24 hr 03/21/19 03/21/19 03/21/19 16:40 16:40 17:12 WBC RBC Hgb Hct MCV MCH MCHC RDW Std Deviation Plt Count MPV Immature Gran % (Auto) Neut % (Auto) Lymph % (Auto) [place] % (Auto) Eos % (Auto) Baso % (Auto) Immature Gran # (Auto) Neut # (Auto) Lymph # (Auto) [place] # (Auto) Eos # (Auto) Baso # (Auto) PT 15.8 INR 1.16 PTT (Actin FS) 26.2 Specimen Type Sample Site pH pCO2 pO2 HCO3 Base Excess Oxyhemoglobin ABG O2 Sat (Calculated) ABG O2 Saturation ABG Carboxyhemoglobin ABG Methemoglobin Al Test A-a O2 Difference Total Hemoglobin Lactate Liter Flow Blood Gas Modality FiO2 % Sodium 124 L Potassium 5.0 Chloride 89 L Carbon Dioxide 21 L Anion Gap 14 BUN 45 H Creatinine 2.8 H Estimated GFR/1.73 m2 16 BUN/Creatinine Ratio 16 Glucose 119 H POC Glucose 137 H Serum Osmolality Calculated Osmolality 262 Calcium 8.4 L Total Bilirubin 0.40 AST 58 H ALT 17 Alkaline Phosphatase 66 Troponin T Total Protein 7.5 Albumin 4.1 Globulin 3.4 Albumin/Globulin Ratio 1.2 Plasma Lactate Vitamin B12 Folate Urine Source Urine Color Urine Turbidity Urine pH Ur Specific [place] Urine Protein Ur Glucose (Stick) Ur Ketones (Stick) Urine Blood Urine Nitrite Urine Bilirubin Urobilinogen Dipstick Urine Leukocytes Urine WBC (Auto) Urine RBC (Auto) U Epithel Cells (Auto) Urine Bacteria (Auto) Urine Osmolality Ur Random Sodium 03/21/19 03/21/19 03/21/19 18:32 19:12 19:12 WBC 22.21 H RBC 2.87 L Hgb 9.4 L Hct 27.6 L MCV 96.2 MCH 32.8 H MCHC 34.1 RDW Std Deviation 12.8 Plt Count 65 L MPV 9.7 Immature Gran % (Auto) 0.3 Neut % (Auto) 82.9 H Lymph % (Auto) 7.5 L [place] % (Auto) 9.2 Eos % (Auto) 0.0 Baso % (Auto) 0.1 Immature Gran # (Auto) 0.07 H Neut # (Auto) 18.40 H Lymph # (Auto) 1.66 [place] # (Auto) 2.04 H Eos # (Auto) 0.01 Baso # (Auto) 0.03 PT INR PTT (Actin FS) Specimen Type ARTERIAL Sample Site R RADIAL pH 7.33 L pCO2 48 H pO2 88 HCO3 24.3 Base Excess -0.8 Oxyhemoglobin 93.4 L ABG O2 Sat (Calculated) 12.1 L ABG O2 Saturation 93.4 L ABG Carboxyhemoglobin 0.00 L ABG Methemoglobin 0.1 Al Test YES A-a O2 Difference 80.0 Total Hemoglobin 9.1 L Lactate 0.60 Liter Flow 3.0 Blood Gas Modality CAN[place]ULA FiO2 % 32.0 Sodium Potassium Chloride Carbon Dioxide Anion Gap BUN Creatinine Estimated GFR/1.73 m2 BUN/Creatinine Ratio Glucose POC Glucose Serum Osmolality Calculated Osmolality Calcium Total Bilirubin AST ALT Alkaline Phosphatase Troponin T 0.020 Total Protein Albumin Globulin Albumin/Globulin Ratio Plasma Lactate Vitamin B12 Folate Urine Source Urine Color Urine Turbidity Urine pH Ur Specific [place] Urine Protein Ur Glucose (Stick) Ur Ketones (Stick) Urine Blood Urine Nitrite Urine Bilirubin Urobilinogen Dipstick Urine Leukocytes Urine WBC (Auto) Urine RBC (Auto) U Epithel Cells (Auto) Urine Bacteria (Auto) Urine Osmolality Ur Random Sodium 03/21/19 03/21/19 03/21/19 19:12 19:12 19:12 WBC RBC Hgb Hct MCV MCH MCHC RDW Std Deviation Plt Count MPV Immature Gran % (Auto) Neut % (Auto) Lymph % (Auto) [place] % (Auto) Eos % (Auto) Baso % (Auto) Immature Gran # (Auto) Neut # (Auto) Lymph # (Auto) [place] # (Auto) Eos # (Auto) Baso # (Auto) PT INR PTT (Actin FS) Specimen Type Sample Site pH pCO2 pO2 HCO3 Base Excess Oxyhemoglobin ABG O2 Sat (Calculated) ABG O2 Saturation ABG Carboxyhemoglobin ABG Methemoglobin Al Test A-a O2 Difference Total Hemoglobin Lactate Liter Flow Blood Gas Modality FiO2 % Sodium Potassium Chloride Carbon Dioxide Anion Gap BUN Creatinine Estimated GFR/1.73 m2 BUN/Creatinine Ratio Glucose POC Glucose Serum Osmolality 275 Calculated Osmolality Calcium Total Bilirubin AST ALT Alkaline Phosphatase Troponin T Total Protein Albumin Globulin Albumin/Globulin Ratio Plasma Lactate 0.9 Vitamin B12 Folate > 40.0 H Urine Source Urine Color Urine Turbidity Urine pH Ur Specific [place] Urine Protein Ur Glucose (Stick) Ur Ketones (Stick) Urine Blood Urine Nitrite Urine Bilirubin Urobilinogen Dipstick Urine Leukocytes Urine WBC (Auto) Urine RBC (Auto) U Epithel Cells (Auto) Urine Bacteria (Auto) Urine Osmolality Ur Random Sodium 03/21/19 03/21/19 03/21/19 19:12 21:05 21:05 WBC RBC Hgb Hct MCV MCH MCHC RDW Std Deviation Plt Count MPV Immature Gran % (Auto) Neut % (Auto) Lymph % (Auto) [place] % (Auto) Eos % (Auto) Baso % (Auto) Immature Gran # (Auto) Neut # (Auto) Lymph # (Auto) [place] # (Auto) Eos # (Auto) Baso # (Auto) PT INR PTT (Actin FS) Specimen Type Sample Site pH pCO2 pO2 HCO3 Base Excess Oxyhemoglobin ABG O2 Sat (Calculated) ABG O2 Saturation ABG Carboxyhemoglobin ABG Methemoglobin Al Test A-a O2 Difference Total Hemoglobin Lactate Liter Flow Blood Gas Modality FiO2 % Sodium Potassium Chloride Carbon Dioxide Anion Gap BUN Creatinine Estimated GFR/1.73 m2 BUN/Creatinine Ratio Glucose POC Glucose Serum Osmolality Calculated Osmolality Calcium Total Bilirubin AST ALT Alkaline Phosphatase Troponin T Total Protein Albumin Globulin Albumin/Globulin Ratio Plasma Lactate Vitamin B12 > 2000 H Folate Urine Source CATH Urine Color YELLOW Urine Turbidity CLEAR Urine pH 5.5 Ur Specific [place] 1.015 Urine Protein TRACE A Ur Glucose (Stick) NEGATIVE Ur Ketones (Stick) NEGATIVE Urine Blood NEGATIVE Urine Nitrite NEGATIVE Urine Bilirubin NEGATIVE Urobilinogen Dipstick NORMAL Urine Leukocytes LARGE A Urine WBC (Auto) 10-20 A Urine RBC (Auto) <10 U Epithel Cells (Auto) <10 Urine Bacteria (Auto) 1+ Urine Osmolality 323 Ur Random Sodium 03/21/19 21:05 WBC RBC Hgb Hct MCV MCH MCHC RDW Std Deviation Plt Count MPV Immature Gran % (Auto) Neut % (Auto) Lymph % (Auto) [place] % (Auto) Eos % (Auto) Baso % (Auto) Immature Gran # (Auto) Neut # (Auto) Lymph # (Auto) [place] # (Auto) Eos # (Auto) Baso # (Auto) PT INR PTT (Actin FS) Specimen Type Sample Site pH pCO2 pO2 HCO3 Base Excess Oxyhemoglobin ABG O2 Sat (Calculated) ABG O2 Saturation ABG Carboxyhemoglobin ABG Methemoglobin Al Test A-a O2 Difference Total Hemoglobin Lactate Liter Flow Blood Gas Modality FiO2 % Sodium Potassium Chloride Carbon Dioxide Anion Gap BUN Creatinine Estimated GFR/1.73 m2 BUN/Creatinine Ratio Glucose POC Glucose Serum Osmolality Calculated Osmolality Calcium Total Bilirubin AST ALT Alkaline Phosphatase Troponin T Total Protein Albumin Globulin Albumin/Globulin Ratio Plasma Lactate Vitamin B12 Folate Urine Source Urine Color Urine Turbidity Urine pH Ur Specific [place] Urine Protein Ur Glucose (Stick) Ur Ketones (Stick) Urine Blood Urine Nitrite Urine Bilirubin Urobilinogen Dipstick Urine Leukocytes Urine WBC (Auto) Urine RBC (Auto) U Epithel Cells (Auto) Urine Bacteria (Auto) Urine Osmolality Ur Random Sodium 23 Orders Category Date Time Status Admit - [facility] Routine AdmDCTranf 03/21/19 21:06 Active Activity - Up with Assistance ORDERED Care 03/21/19 21:06 Active Apply Mechanical Device [QM] ORDERED Care 03/21/19 21:06 Active Cardiac Monitoring DIRECTED Care 03/21/19 15:13 Completed Elevate Head of Bed DIRECTED Care 03/21/19 21:06 Active Encourage Fluids DIRECTED Care 03/21/19 21:06 Active Intake and Output-Strict Q 8-HR ASSESS Care 03/21/19 21:06 Active Misc. NRSG Communication Order DIRECTED Care 03/21/19 15:13 Completed Nursing- Assist w/ IS as order ORDERED Care 03/21/19 21:06 Active Oxygen Therapy- ED Nursing DIRECTED Care 03/21/19 15:13 Completed Saline Loc NOW Care 03/21/19 15:13 Completed Turn, Cough and Deep Breathe Q2HR Care 03/21/19 21:06 Active Vital Signs Order Q 4-HR ASSESS Care 03/21/19 21:06 Active CHEST-PORTABLE [RAD] Routine Exams 03/22/19 06:00 Ordered CHEST-PORTABLE [RAD] Stat Exams 03/21/19 15:[address] HEAD W/O CONTRAST [CT] Stat Exams 03/21/19 15:13 Completed ABG [RESP] Routine Lab 03/21/19 18:32 Completed CBC WITH DIFF [HEME] Routine Lab 03/22/19 06:00 Ordered CBC WITH ELECTRONIC DIFF [HEME] Stat Lab 03/21/19 19:12 Completed COMPREHENSIVE METABOLIC PANEL [CHEM] Routine Lab 03/22/19 06:00 Ordered COMPREHENSIVE METABOLIC PANEL [CHEM] Stat Lab 03/21/19 16:40 Completed FOLATE Routine Lab 03/21/19 19:12 Completed FREE T4 Routine Lab 03/22/19 06:00 Ordered LACTATE, PLASMA [CHEM] Stat Lab 03/21/19 19:12 Completed PROTIME WITH INR [COAG] Stat Lab 03/21/19 16:40 Completed PTT [COAG] Stat Lab 03/21/19 16:40 Completed SERUM OSMOLALITY [CHEM] Stat Lab 03/21/19 19:12 Completed SODIUM [CHEM] Timed Lab 03/22/19 01:00 Uncollected SPUTUM CULTURE WITH GRAM STAIN [RM] Routine Lab 03/21/19 21:06 Uncollected TROPONIN T Stat Lab 03/21/19 19:12 Completed TSH Routine Lab 03/22/19 06:00 Ordered UR OSMOLALITY [CHEM] Stat Lab 03/21/19 21:05 Completed UR SODIUM [URCHEM] Stat Lab 03/21/19 21:05 Completed URINALYSIS W/POSS RFLX CULT [URINALYSIS] Stat Lab 03/21/19 21:05 Completed VITAMIN B12 Routine Lab 03/21/19 19:12 Completed 0.9% Sodium Chloride Inj [Ns] 1,000 ml Med 03/21/19 21:06 Active IV 75 mls/hr 0.9% Sodium Chloride Inj [Ns] 1,000 ml Med 03/21/19 17:37 Discontinued IV 999 mls/hr Acetaminophen [Tylenol] Med 03/21/19 21:06 Active 650 mg PO Q4H PRN PRN Albuterol 2.5MG/Ipratrop 0.5MG [Duoneb (A & A)] Med 03/21/19 21:06 Active 3 ml INH Q2H PRN PRN Albuterol 2.5MG/Ipratrop 0.5MG [Duoneb (A & A)] Med 03/21/19 21:06 Active 3 ml INH RTQ4H CefTRIAXONE [Rocephin] 1 gm Med 03/21/19 17:05 Discontinued 0.9% Sodium Chloride Inj [Ns] 50 ml IV NOW Levofloxacin [Levaquin] 750 mg Med 03/21/19 21:06 Active 0.9% Sodium Chloride Inj [Ns] 150 ml IV Q24H Aerosol Treatments Routine Ot 03/21/19 21:06 Completed Aerosol Treatments Stat Oth 03/21/19 21:06 Completed Incentive Spirometer Routine Ot 03/21/19 21:06 Completed Oxygen Device Routine Oth 03/21/19 21:06 Completed Pulse Oximetry Routine Ot 03/21/19 21:06 Completed EKG [EKG] Stat Ther 03/21/19 15:13 Ordered Transfer/Admit Order [TRANSFER] Routine Transfer 03/21/19 18:27 Completed I spoke to Dr. Yao from ER in [facility] and he said they did closed reduction left lower ankle. procedural sedation done using Ketamine 50 Mg and Dilaudid 1 Mg. procedure done around 11 AM and pt discharged at 7 PM with back to Baseline Mental status per chart review. said she is confused after procedure since yesterday but she got worse today at orthopedics clinic. Pt has AMS likely multifactorial, elevated BUN, Creatinine and got ketamine yesterday. Na is also low and can contribute to AMS. CXR compatible with pneumonia which can cause confusion at this age. Nurse Mariela informed to give rocephin IM and don't wait for BC. Dr. Serrano doesn't suspect stroke for the pt but still recommend stroke workup. Pt care, assessment and plan discussed with the attending physician Dr. Papo Sanchez and he agree with the plan as documented. Result Diagrams: 03/21/19 19:12 03/21/19 16:40 - REASSESSMENT Reassessment #1 Time Reassessed: 17:02 Reassessment #2 Time Reassessed: 18:01 - CONSULTS/PCP/HOSPITALIST Notification #1 *Consult/PCP/Hospitalist*: Dr. Serrano Time Discussed: 17:25 Consult Disposition: Admit (Hx, PE and patient care discussed, admit to [facility] for AMS and stroke workup.) #2 Consult: VINICIUS Marshall admitting for Dr. Caballero Time Discussed: 18:15 Consult Disposition: Admit (hx, PE and pt care discussed and Dr. Serrano recom mendations discussed, accpeted.) Departure - Departure Date of Disposition Decision: 03/21/19 Time of Disposition Decision: 18:15 DIAGNOSIS: TRUONG (acute kidney injury), Hyponatremia Altered mental status Qualifiers: Altered mental status type: disorientation Qualified Code(s): R41.0 - Di sorientation, unspecified Pneumonia Qualifiers: Pneumonia type: due to unspecified organism Laterality: left Lung location: unspecified part of lung Qualified Code(s): J18.9 - Pneumonia, unspecified organism Disposition: ADMITTED INPATIENT 09 Certified Medical Emergency: Emergent Condition: Serious - Critical Care Note This patient required my direct & personal management of CC.: Yes Total Time (mins): 30 Critical Care Statement: This patient required my direct personal management to treat or rule out processes, the absence of which, could potentiallly result in sudden, clinically significant life or limb threatening deterioration. Attestation - Physician/ SYLVIA Attestation Patient care was provided by Advanced Practice Provider:: No The physician spent face to face time with patient:: Yes Advanced Practice Provider documentation review:: Supervising physician onsite and consulted in the evaluation and care of this patient. The physician did have a face to face encounter with the patient. - NIH Stroke Scale Level of Consciousness: 1-Drowsy, but arousable with minimal stimulation LOC Questions (ask month and age): 0-Answers Both Correctly LOC Commands (ask to open & close eyes;make a fist, let go): 0-Obeys Both Correctly Best Gaze (horizontal eye movement): 0-Normal Visual (use finger movement, counting or visual threat): 0-No Visual Loss (NO new visual loss) Facial Palsy (show teeth or raise eyebrows & close eyes tght: 1-Minor Paralysis Motor Function-left arm: 0-Normal Motor Function-right arm: 0-Normal Motor Function-left le-Untestable Motor Function-right le-Normal Limb Ataxia(tavteo-marc-idudwa, or heel to romero): 0-No Ataxia Sensory(pin prick to face,arms,trunk,legs-compare side/side): 0-No Ataxia Best Language(name item/read sentence.Ex-Down to Earth): 0-No Aphasia Dysarthria(Pt read words or say words Ex.Mama,Tip-Top,Thanks: 1-Mild-Mod Slurring Words Extinction and Inattention: 0-Normal NIH Total Score: 2
[2019-03-21] MEDS ORDERED: ROCEPHIN 1 GM in NS 50 ML IV ONE (17:05)
--- NOTE | 2019-03-21 17:08 | ED EKG INTERP ---
This chart was entered by Waleska Leiva Scribe, acting as scribe for Papo Sanchez MD. EKG Interpretation - EKG Time of EKG reading by physician:: 16:16 EKG Read and Signed by:: Papo Sanchez EKG Interpretation (*Must complete 3 of following elements*): Abnormal Rate: 71 Rhythm: sinus rhythm with 1st degree AV block [place]: normal Comments: otherwise normal ECG Attestation - Physician/ SYLVIA Attestation The physician spent face to face time with patient:: No Advanced Practice Provider documentation review:: Supervising physician onsite and consulted in the evaluation and care of this patient. The physician did not have a face to face encounter with the patient. This chart was documented by the indicated scribe, (Waleska Leiva Scribe) and accurately reflects the services I performed and decisions made by me, Papo Sanchez MD, as attested by the provider's signature.
[2019-03-21 17:16] LABS: INR 1.16; PROTIME 15.8 Seconds (11.0-16.0)
[2019-03-21 17:17] LABS: PTT 26.2 Seconds (22.3-41.8)
[2019-03-21 17:33] LABS: ALB/GLOB RATIO 1.2; ALBUMIN 4.1 g/dL (3.5-5.0); CALCIUM 8.4 mg/dL (8.8-10.2); CREATININE 2.8 mg/dL (0.5-0.9); TOTAL BILIRUBIN 0.4 mg/dL (0.20-1.00); TOTAL PROTEIN 7.5 g/dL (6.3-8.3)
[2019-03-21] MEDS ORDERED: NS 1,000 ML IV ONE (17:37)
[2019-03-21 18:47] LABS: ALLEN TEST YES; BE -0.8 mmoll (-3.0-3.0); BLOOD TYPE ARTERIAL; HCO3-(ACT) 24.3 mmoll (20.0-26.0); METHB 0.1 % (0.0-1.5); O2(CT) 12.1 mL/dL (15.0-23.0); O2HB 93.4 % (95.0-99.0); PCO2(98.6) 48 mmHg (35-45); PO2(98.6) 88 mmHg (60-100); SAMPLE BLOOD; SAO2 93.4 % (95.0-100.0); THB 9.1 g/dL (11.5-17.4); pH(98.6) 7.33 (7.35-7.45)
[2019-03-21 18:48] LABS: MODALITY CANNULA
[2019-03-21 19:30] LABS: BASO# 0.03 X1000 (0.0-0.2); BASO% 0.1 % (0.0-0.8); EOS# 0.01 X1000 (0.0-0.7); HEMATOCRIT 27.6 % (37.0-47.0); HEMOGLOBIN 9.4 g/dL (12.0-16.0); IMM GRAN# 0.07 X1000 (0.0-0.04); IMM GRAN% 0.3 % (0.0-0.5); LYMPH# 1.66 X1000 (1.2-3.4); LYMPH% 7.5 % (20.5-51.1); MCH 32.8 PG (27-31); MCHC 34.1 g/dL (33-37); MCV 96.2 FL (81-99); MONO# 2.04 X1000 (0.11-0.59); MONO% 9.2 % (1.7-9.3); MPV 9.7 FL (7.4-10.4); NEUT% 82.9 % (42.2-75.2); PLT 65 X1000 (130-400); RBC 2.87 XMIL (4.2-5.4); RDW 12.8 % (11.5-14.5); WBC 22.21 X1000 (4.8-10.8)
--- NOTE | 2019-03-21 19:40 | HISTORY AND PHYSICAL ---
PRIMARY CARE PROVIDER: Dr. Johnnie Hampton. PUBLIC HEALTH SERVICE OFFICER: Dr. Franklin. CHIEF COMPLAINT: Altered mental status. HISTORY OF PRESENT ILLNESS: Ms. Grossman is a pleasantly confused, 79-year-old female who carries a past medical history of hypertension, anxiety, situational depression, chronic back pain, hyperlipidemia, hypothyroidism and GERD, status post pacemaker placement for bradycardia. Per her , yesterday she was stepping up to get in her van. He saw her falling back, so he caught her and helped her to the ground. He said once he saw her left ankle, he knew that he would not be able to help her back up, so EMS was called. She was taken to [facility] where they gave her some conscious sedation and placed her ankle back in place. He said they were in the ED for over 6 hours. She still left there a little confused. He brought her to see the orthopedist today where she still remained confused. They referred her to the ED. She had workup that showed a probable aspiration pneumonia and some hyponatremia. We are currently pending her CBC as well as ABG. The patient was a difficult stick. They have been trying to get blood drawn for some time now, as well as having trouble initiating an EJ. Again, we will admit her to [facility] for altered mental status, unsure if secondary to slight hypoxia or her hyponatremia or still some residual from her conscious sedation. We will give her IV fluids and again treatment for aspiration pneumonia. PAST MEDICAL HISTORY: 1. Hypertension. 2. Anxiety. 3. Situational depression. 4. Chronic back pain. 5. Hyperlipidemia. 6. Hypothyroidism. 7. Gastroesophageal reflux disease. 8. Bradycardia, status post pacemaker placement. PAST SURGICAL HISTORY: 1. Pacemaker placement for bradycardia. 2. Tubal. 3. Bilateral knee replacement. SOCIAL HISTORY: She is . She lives with her . Supportive and granddaughter at bedside. No alcohol, tobacco, or illicit drug use. FAMILY HISTORY: Noncontributory. REVIEW OF SYSTEMS: Patient is alert to her name and date of . She knew her at the bedside. She knew her granddaughter; however, she could not tell me the year exactly, what hospital she was in, or what exactly had happened throughout the course of the day. ALLERGIES: No known allergies. HOME MEDICATIONS: Have not been reconciled. PHYSICAL EXAMINATION: VITAL SIGNS: Temperature is 97.7 degrees, heart rate 65, respirations 18, blood pressure 111/67, O2 was 92% on 3 L nasal cannula. GENERAL: Ms. Stafford is a pleasantly confused, 79-year-old female who is lying on the stretcher in no acute distress. She is currently fidgeting with her gown and covers. HEENT: Atraumatic, normocephalic. PERRL. NECK: Supple. Trachea midline. CARDIOVASCULAR: S1, S2 appreciated. No murmurs, gallops, rubs noted. RESPIRATORY: Lung sounds clear to excursion. Nonlabored breathing. GI: Soft, nontender, nondistended. Positive bowel sounds, 4 quadrants. NEUROLOGIC: As per HPI, the patient remains pleasantly somewhat confused. She is fidgeting with her blankets and gown. She does know her name, her date of , her and granddaughter at bedside, but really unaware as to the exact situation. She did not remember getting her ankle repaired. She did follow commands and move all extremities besides her left foot. DIAGNOSTIC DATA: 1. Head CT: Stable advanced chronic changes. No definite acute intracranial pathology. 2. Chest x-ray: Cardiomegaly. Mild nonspecific left perihilar infiltrate. May reflect pneumonia or aspiration. 3. EKG showed sinus rhythm with a first-degree AV block at 71 beats per minute. LABORATORY DATA: CBC is currently pending. ABG pending. Sodium 124, BUN 45, creatinine 2.8, blood glucose was 119, AST was 58. ASSESSMENT AND PLAN: 1. Metabolic versus toxic encephalopathy. Currently pending arterial blood gases as well as urinalysis. The patient does have a probable aspiration pneumonia. We will treat her with Levaquin. She also has hyponatremia. We will treat her with intravenous fluids. Initial head CT was negative. If patient does not improve in the morning, we will order a brain MRI/MRA; however, she does not appear to have any focal deficits. She did have conscious sedation yesterday after getting her left ankle put back in place. 2. Initial hypoxemia. Will continue with supplemental oxygen and check arterial blood gases. Patient is showing probable aspiration pneumonia on chest x-ray. Will continue with aggressive pulmonary toilet. 3. Hyponatremia. Will check studies. Continue with intravenous fluids. Recheck her sodium in the morning. 4. New right ankle fracture that was displaced and put back in under conscious sedation at [facility]. We will let Dr. Paige know that the patient has been admitted in case she needs to have surgery. 5. Hypertension. Aware. We will resume home medications when reconciled. 6. Anxiety and situational depression. 7. Chronic back pain. 8. Hyperlipidemia. 9. Hypothyroidism. Will continue Synthroid when verified. 10. Gastroesophageal reflux disease. 11. Acute kidney injury. They are not aware of any chronic kidney disease. We will continue with intravenous hydration. Per the , she has only drank like a can of soda since yesterday after her conscious sedation. She has not had much intake. 12. Clinical dehydration. We will continue with intravenous fluids. 13. Further recommendations to follow physician evaluation, laboratory and diagnostic data. Dictated by SUSAN Araya for Gm Caballero MD cc: MD Mejia Fenton MD William D. Denney, MD Robert Hall, MD Patient seen and examined by me. I agree with the assessment and plan of the THEOLOGY PROFESSOR. Dr. Caballero. [facility]
[2019-03-21] MEDS ORDERED: DUONEB (A & A) INH PRN (21:06)
[2019-03-21 21:13] LABS: URINE SOURCE CATH
[2019-03-21 21:17] LABS: BILIRUBIN URINE NEGATIVE (NEGATIVE); BLOOD URINE NEGATIVE (NEGATIVE); COLOR YELLOW; GLUCOSE URINE NEGATIVE (NEGATIVE); KETONE URINE NEGATIVE (NEGATIVE); LEUKOCYTES URINE LARGE (NEGATIVE); NITRITE URINE NEGATIVE (NEGATIVE); PH URINE 5.5; PROTEIN URINE TRACE mg/dL (NEGATIVE); SP GRAVITY URINE 1.015; TURBIDITY URINE CLEAR (CLEAR); UROBILINOGEN URINE NORMAL (NORMAL)
[2019-03-21 21:19] LABS: UR EPITHELIAL CELLS <10 /HPF (<10); URINE BACTERIA 1+ /HPF; URINE RBC <10 /HPF (<10)
[2019-03-21] MEDS: LEVAQUIN 750 MG in NS 150 ML IV SCH (23:00)
[2019-03-21] MEDS: NS 1,000 ML IV SCH (23:00)
[2019-03-21] MEDS: DUONEB (A & A) INH SCH ×2 (23:36)
[2019-03-22] MEDS: DUONEB (A & A) INH SCH ×6 (03:30→23:17)
--- NOTE | 2019-03-22 07:19 | Diag Imaging Result Doc PS360 ---
EXAM: CHEST-PORTABLE INDICATION: Pneumonia TECHNIQUE: One view COMPARISON: 03/21/2019 FINDINGS: The mild left perihilar infiltrate is approximately stable. No new consolidation is identified. Cardiac silhouette is stable. IMPRESSION: Stable chest. Electronically signed by Alton Joseph 03/22/2019 7:16 AM
--- NOTE | 2019-03-22 08:52 | EKG Report ---
Test Performed on : 03/21/2019 4:16:48 PM Test Reason : AMS Blood Pressure : / mmHG Vent. Rate : 071 BPM Atrial Rate : 071 BPM P-R Int : 242 ms QRS Dur : 088 ms QT Int : 398 ms P-R-T Axes : 082 -05 061 degrees QTc Int : 432 ms Sinus rhythm. with 1st degree AV block. Otherwise normal ECG When compared with ECG of 23-NOV-2018 15:19, premature ventricular complexes. are no longer present premature supraventricular complexes. are no longer present Nonspecific T wave abnormality no longer evident in Inferior leads T wave inversion no longer evident in Anterolateral leads Unconfirmed Result
[2019-03-22 09:22] LABS: BASO# 0.03 X1000 (0.0-0.2); BASO% 0.1 % (0.0-0.8); EOS# 0.02 X1000 (0.0-0.7); EOS% 0.1 % (0.0-10.0); HEMATOCRIT 24.5 % (37.0-47.0); HEMOGLOBIN 8.3 g/dL (12.0-16.0); IMM GRAN# 0.05 X1000 (0.0-0.04); IMM GRAN% 0.2 % (0.0-0.5); LYMPH# 1.83 X1000 (1.2-3.4); MCHC 33.9 g/dL (33-37); MCV 94.6 FL (81-99); MONO# 1.61 X1000 (0.11-0.59); MONO% 7.9 % (1.7-9.3); MPV 9.7 FL (7.4-10.4); NEUT# 16.77 X1000 (1.4-6.5); NEUT% 82.7 % (42.2-75.2); PLT 221 X1000 (130-400); RBC 2.59 XMIL (4.2-5.4); RDW 12.6 % (11.5-14.5); WBC 20.31 X1000 (4.8-10.8)
[2019-03-22 09:25] LABS: ALBUMIN 3.6 g/dL (3.5-5.0); CREATININE 1.8 mg/dL (0.5-0.9); POTASSIUM 4.6 mmol/L (3.5-5.1); TOTAL BILIRUBIN 0.37 mg/dL (0.20-1.00); TOTAL PROTEIN 7.1 g/dL (6.3-8.3)
[2019-03-22 09:44] LABS: FREE T4 1.29 ng/dL (0.93-1.70); TSH 1.04 uIUmL (0.27-4.20)
[2019-03-22 10:18] LABS: BANDS 4 % (0-1); LYMPHS 12 % (21-51); MONO 4 % (1-9); SEGS 80 % (42-75)
--- NOTE | 2019-03-22 13:36 | PROGRESS NOTE ---
DATE: 03/22/2019 SUBJECTIVE: Patient resting in bed. She is confused. OBJECTIVE: Vital Signs: As follows: 84, respirations 18, blood pressure 109/48. HEENT: Atraumatic, normocephalic. Cardiovascular: S1, S2. Respiratory: Has evidence of good air entry bilaterally. Abdomen: Soft, nontender. No masses felt. Extremities: There is a dressing on the left foot. Central Nervous System: No obvious focal deficit noted. LABORATORY: WBC 20.31, hematocrit is 24.5, with a platelet count of 221,000. Sodium is 125, potassium 4.6, chloride 97, bicarb is 19, BUN is 37, creatinine is 1.8. UA shows a large amount of leukocytes with 10-20 WBCs per high-power field. ASSESSMENT AND PLAN: 1. Encephalopathy, multifactorial. The patient seems to be improving. 2. Hyponatremia. Follow up on urine electrolytes along with TSH as well as a cortisol level. Continue intravenous fluids. Restrict water intake, follow sodium level. 3. Right ankle fracture. Orthopedics consulted. 4. Probable pneumonia. Continue antibiotics. 5. Probable UTI. Continue antibiotics. 6. Hypothyroidism. Continue Synthroid. 7. Gastroesophageal reflux disease. Maintain patient on PPI. 8. Renal insufficiency. Follow up on renal function. Maintain intravenous fluids. Avoid nephrotoxic agent. 9. DVT prophylaxis. SCD. cc: Gm Caballero MD MTDD
[2019-03-22] MEDS: NS 1,000 ML IV SCH (14:32)
[2019-03-22] MEDS: TYLENOL PO PRN ×2 (15:51→20:03)
[2019-03-22 17:32] LABS: UR CREAT RANDOM 72.7 mg/dL (11-20)
[2019-03-22] MEDS: LEVAQUIN 750 MG in NS 150 ML IV SCH (21:06)
[2019-03-23] MEDS: DUONEB (A & A) INH SCH ×6 (03:10→22:33)
[2019-03-23] MEDS: TYLENOL PO PRN ×2 (04:25→18:08)
[2019-03-23] MEDS: NS 1,000 ML IV SCH ×3 (04:25→18:03)
[2019-03-23 06:02] LABS: BASO# 0.03 X1000 (0.0-0.2); BASO% 0.2 % (0.0-0.8); EOS# 0.02 X1000 (0.0-0.7); EOS% 0.1 % (0.0-10.0); HEMATOCRIT 23.8 % (37.0-47.0); IMM GRAN# 0.03 X1000 (0.0-0.04); IMM GRAN% 0.2 % (0.0-0.5); LYMPH# 1.05 X1000 (1.2-3.4); LYMPH% 6.8 % (20.5-51.1); MCH 31.9 PG (27-31); MCHC 33.6 g/dL (33-37); MCV 94.8 FL (81-99); MONO# 1.32 X1000 (0.11-0.59); MONO% 8.6 % (1.7-9.3); MPV 10.1 FL (7.4-10.4); NEUT# 12.94 X1000 (1.4-6.5); NEUT% 84.1 % (42.2-75.2); PLT 228 X1000 (130-400); RBC 2.51 XMIL (4.2-5.4); RDW 13.2 % (11.5-14.5); WBC 15.39 X1000 (4.8-10.8)
[2019-03-23 06:19] LABS: CALCIUM 8.4 mg/dL (8.8-10.2); CREATININE 1.1 mg/dL (0.5-0.9); POTASSIUM 4.2 mmol/L (3.5-5.1)
[2019-03-23] MEDS ORDERED: LABETALOL IV PRN (11:50)
[2019-03-23] MEDS: KEFZOL 1 GM/D5W 1 GM/50 ML IVPB IV SCH ×2 (13:30→23:57)
--- NOTE | 2019-03-23 17:04 | PROGRESS NOTE ---
DATE: 03/23/2019 SUBJECTIVE: The patient is resting comfortably in bed. OBJECTIVE: Vital signs as follows: Temperature 98.1 degrees, pulse 110, respiratory rate 20, blood pressure 192/78, oxygen saturation is 97%.HEENT: Atraumatic, normocephalic. Cardiovascular: S1, S2. Respiratory system has evidence of good air entry bilaterally. Abdomen is soft, nontender. No masses felt. Extremities: No evidence of significant edema. Central nervous system: No obvious focal deficits noted. LABORATORY DATA: WBC is 15.39, hematocrit 23.8, with a platelet count of 228,000. Sodium is 134, potassium 4.2, chloride is 103, bicarbonate 23, BUN is 20, creatinine 1.1. ASSESSMENT AND PLAN: 1. Encephalopathy. The patient's mental status seems to be improving. 2. Hyponatremia, improved. Continue to follow up on the patient's sodium level. 3. Right ankle fracture. Orthopedics consulted. 4. Pneumonia. We will continue current antibiotic regimen. Follow up on sputum as well as blood cultures. 5. Urinary tract infection secondary to Escherichia coli. Modify antibiotics based on culture as well as sensitivity report. 6. Hypothyroidism. Continue Synthroid. 7. Gastroesophageal reflux disease. Continue proton pump inhibitor. 8. Acute kidney injury. Renal function improving. Continue intravenous fluids. 9. Deep vein thrombosis prophylaxis. Sequential compression devices. cc: Gm Caballero MD
[2019-03-23] MEDS: BENTYL PO SCH ×2 (18:03→21:32)
[2019-03-23] MEDS: SYNTHROID PO SCH (18:08)
[2019-03-23 18:09] LABS: ALB/GLOB RATIO 0.9; ALBUMIN 3.7 g/dL (3.5-5.0); CALCIUM 8.9 mg/dL (8.8-10.2); CREATININE 1.1 mg/dL (0.5-0.9); POTASSIUM 4.3 mmol/L (3.5-5.1); TOTAL BILIRUBIN 0.53 mg/dL (0.20-1.00); TOTAL PROTEIN 7.9 g/dL (6.3-8.3)
--- NOTE | 2019-03-23 21:55 | ORTHOPAEDICS CONSULTATION ---
DATE: 03/23/2019 REASON FOR CONSULTATION: Right ankle fracture after fall. HISTORY OF PRESENT ILLNESS: Ms. Grossman is a pleasantly confused 79-year-old female who carries a past medical history of hypertension, anxiety, depression, chronic back pain, hyperlipidemia, hypothyroidism, gastroesophageal reflux disease, pacemaker for bradycardia, and some recent confusion. She apparently had a fall several days ago in her home. She did not lose consciousness. She was just trying to get out of her van. EMS was called and they took her to [facility]. The ankle was actually dislocated and she was given conscious sedation and the ankle was reduced. She was discharged from the ER that day and was told to follow up with [facility]. She was actually in Dr. Paige's office when she became unresponsive. The family said that she had been very drowsy on that day, but had been appropriate. We were unable to get her to speak, although she was able to follow some commands at the office. An ambulance was called and she was transferred to [facility]. When she arrived there, she had a low O2 saturation and some confusion. She was admitted to [facility] with altered mental status and some hypoxia. She was started on IV fluids and antibiotics for aspiration pneumonia and possible UTI. Orthopedics has been consulted for a followup of this ankle fracture. PAST MEDICAL HISTORY: 1. Hypertension. 2. Anxiety. 3. Situational depression. 4. Chronic back pain. 5. Hyperlipidemia. 6. Hypothyroidism. 7. Gastroesophageal reflux disease. 8. Bradycardia status post permanent pacemaker. PAST SURGICAL HISTORY: 1. Permanent pacemaker. 2. Tubal. 3. Bilateral knee replacement. SOCIAL HISTORY: She is and lives with her . She has a good supportive family. She denies tobacco, alcohol, or illicit drug use. FAMILY HISTORY: Noncontributory. REVIEW OF SYSTEMS: A 10 point review of systems was conducted, but a little difficult to obtain given the patient's confusion. She is more appropriate this morning. ALLERGIES: No known drug allergies. HOME MEDICATIONS: Refer to the chart. PHYSICAL EXAMINATION: Current Vital Signs: Temp is 98.1 degrees, pulse 100, respirations 20, blood pressure 149/90, O2 saturation is 97% on 3 L nasal cannula. Neurological: She is oriented to person and is able to recognize her and family that are in the room. HEENT: Head is atraumatic, normocephalic. Pupils are equal, round, reactive to light. Cardiovascular: Regular rate and rhythm. Respirations: Breathing is even, unlabored. GI: Appears nondistended. Extremity: Left lower extremity examination, she does have a splint in place that was placed in the ER at [facility]. She does have good sensation to her toes. She is not able to move the toes well. She has good capillary refill. We do not have a recent ankle film from [place], but imaging from [facility] did show a well reduced bimalleolar ankle fracture. ASSESSMENT: Left bimalleolar ankle fracture. PLAN: It does look like over the last couple days Ms. Grossman's confusion has improved. She does have an E. coli UTI that they are treating with antibiotics. There is also some suspicion for aspiration puneumonia. She is definitely more appropriate this morning. As long as she is medically cleared, we will plan on doing a left ORIF of this ankle tomorrow. I am going to make her NPO this evening and go ahead and get consent. As long as she is medically cleared, we will get this done tomorrow. Dr. Paige has spoke with her and the family. Everyone is in agreement that this is the best course of action. Dr. Paige discussed risks, benefits, and recovery. Risks include, but not limited to, damage to nerves, arteries, and veins, malunion, nonunion, hardware related issues, risk of infection, risk of continued pain, DVT, poor wound healing, and general anesthesia. The patient and family all seem to understand. We are going to proceed. Dictated by SUSAN Serna for Mejia Paige MD cc: SUSAN Serna MD [facility]
[2019-03-24] MEDS: NORCO-10 PO PRN ×2 (01:56→17:18)
[2019-03-24] MEDS: DUONEB (A & A) INH SCH ×7 (03:05→23:38)
[2019-03-24] MEDS: KEFZOL 1 GM/D5W 1 GM/50 ML IVPB IV SCH (06:01)
[2019-03-24] MEDS: SYNTHROID PO SCH (06:03)
[2019-03-24 06:51] LABS: BASO# 0.02 X1000 (0.0-0.2); BASO% 0.1 % (0.0-0.8); EOS# 0.04 X1000 (0.0-0.7); EOS% 0.2 % (0.0-10.0); HEMATOCRIT 31.1 % (37.0-47.0); HEMOGLOBIN 10.6 g/dL (12.0-16.0); IMM GRAN# 0.05 X1000 (0.0-0.04); IMM GRAN% 0.3 % (0.0-0.5); LYMPH# 1.84 X1000 (1.2-3.4); LYMPH% 9.5 % (20.5-51.1); MCH 31.5 PG (27-31); MCHC 34.1 g/dL (33-37); MCV 92.3 FL (81-99); MONO% 8.3 % (1.7-9.3); MPV 10.2 FL (7.4-10.4); NEUT# 15.74 X1000 (1.4-6.5); NEUT% 81.6 % (42.2-75.2); PLT 267 X1000 (130-400); RBC 3.37 XMIL (4.2-5.4); RDW 13.9 % (11.5-14.5); WBC 19.29 X1000 (4.8-10.8)
--- NOTE | 2019-03-24 07:08 | Diag Imaging Result Doc PS360 ---
EXAM: CHEST-1 VIEW 03/24/2019 HISTORY: pneumonia TECHNIQUE: AP portable at 0607 COMMENT: There is patchy alveolar opacity bilaterally which is worse than on the previous study of 03/22/2019. IMPRESSION: Pulmonary edema and/or pneumonia. Electronically signed by Cyril Alvarez 03/24/2019 7:06 AM
[2019-03-24] MEDS: NS 1,000 ML IV SCH ×2 (09:37→22:17)
--- NOTE | 2019-03-24 11:08 | Diag Imaging Result Doc PS360 ---
EXAM: ANKLE COMPLETE LEFT 03/24/2019 HISTORY: ankle fracture TECHNIQUE: Left ankle three views COMMENT: There is a fracture of the distal fibula with the distal fragment displaced somewhat posteriorly as well as a fracture of the medial malleolus and subluxation of the plafond medially with respect to the talar dome. There are no previous studies. IMPRESSION: Unstable ankle fracture as described. Electronically signed by Cyril Alvarez 03/24/2019 11:06 AM
--- NOTE | 2019-03-24 14:04 | PROGRESS NOTE ---
DATE: 03/24/2019 SUBJECTIVE: The patient is resting comfortably on bed. Her is present in the room. OBJECTIVE: Vital signs: Temperature is 99.4 degrees, pulse is 122, respirations 23, blood pressure is 156/109, oxygen saturation is 99%. HEENT: She is atraumatic and normocephalic. Cardiovascular: S1, S2. Irregular. Respiratory: Has evidence of good air entry bilaterally. Abdomen: Soft and nontender. No masses felt. Extremities: No significant edema noted. Central Nervous System: No obvious focal deficits noted. LABORATORY DATA: WBC is 98.29, hematocrit is 31.1, with a platelet count of 267,000. ASSESSMENT AND PLAN: 1. Encephalopathy. This seems to have resolved. 2. Hyponatremia, improved. Follow up on sodium level. 3. Right ankle fracture. Orthopedics consulted. Repair planned for today. 4. Pneumonia. Continue current antibiotic regimen. 5. Urinary tract infection. Continue current antibiotics. 6. Hypothyroidism. Continue Synthroid. 7. Gastroesophageal reflux disease. Continue proton pump inhibitor. 8. Acute kidney injury. Follow up on renal function while on intravenous fluids. 9. Anemia. Follow up on hemoglobin and hematocrit. Transfuse packed red blood cells as needed. 10. Deep vein thrombosis prophylaxis. Sequential compression devices. 11. Disposition. The patient will probably be going home with home health services at the time of discharge. cc: Gm Caballero MD
[2019-03-24] MEDS: BENTYL PO SCH ×4 (14:15→21:46)
[2019-03-24] MEDS: KLONOPIN PO SCH (14:16)
[2019-03-24] MEDS: CELEXA PO SCH (14:16)
[2019-03-24] MEDS: TENORMIN PO SCH (14:16)
[2019-03-24] MEDS: ZOSYN 3.375 GM in NS 50 ML IV SCH ×2 (14:19→22:20)
[2019-03-24] MEDS: ZOFRAN PO PRN (17:18)
[2019-03-24] MEDS ORDERED: LEVAQUIN 750 MG in NS 150 ML IV SCH (21:00)
[2019-03-24] MEDS: ZYVOX PO SCH (21:46)
[2019-03-24] MEDS: PRAVACHOL PO SCH (21:46)
[2019-03-25] MEDS: NORCO-10 PO PRN ×3 (00:54→15:43)
[2019-03-25] MEDS: DUONEB (A & A) INH SCH ×6 (03:27→23:36)
[2019-03-25] MEDS ORDERED: MORPHINE IV ONE (04:07)
[2019-03-25 05:57] LABS: BASO# 0.03 X1000 (0.0-0.2); BASO% 0.2 % (0.0-0.8); EOS# 0.17 X1000 (0.0-0.7); EOS% 1.1 % (0.0-10.0); HEMATOCRIT 30.4 % (37.0-47.0); IMM GRAN# 0.06 X1000 (0.0-0.04); IMM GRAN% 0.4 % (0.0-0.5); LYMPH% 12.1 % (20.5-51.1); MCH 31.2 PG (27-31); MCHC 32.9 g/dL (33-37); MCV 94.7 FL (81-99); MONO# 1.69 X1000 (0.11-0.59); MONO% 11.4 % (1.7-9.3); MPV 9.7 FL (7.4-10.4); NEUT# 11.09 X1000 (1.4-6.5); NEUT% 74.8 % (42.2-75.2); PLT 274 X1000 (130-400); RBC 3.21 XMIL (4.2-5.4); RDW 14.1 % (11.5-14.5); WBC 14.84 X1000 (4.8-10.8)
[2019-03-25] MEDS: ZOSYN 3.375 GM in NS 50 ML IV SCH ×8 (06:18→23:00)
[2019-03-25 06:30] LABS: POTASSIUM 3.7 mmol/L (3.5-5.1)
[2019-03-25 06:31] LABS: CALCIUM 8.3 mg/dL (8.8-10.2)
[2019-03-25] MEDS: SYNTHROID PO SCH (07:02)
[2019-03-25] MEDS: LEVAQUIN PO SCH (08:23)
[2019-03-25] MEDS: CELEXA PO SCH (08:23)
[2019-03-25] MEDS: TENORMIN PO SCH (08:23)
[2019-03-25] MEDS: ZYVOX PO SCH ×2 (08:25→22:59)
[2019-03-25] MEDS: BENTYL PO SCH ×6 (08:30→22:59)
[2019-03-25] MEDS: NS 1,000 ML IV SCH ×2 (08:32→17:50)
[2019-03-25] MEDS: KLONOPIN PO SCH (08:32)
--- NOTE | 2019-03-25 08:55 | Diag Imaging Result Doc PS360 ---
EXAM: CHEST-1 VIEW INDICATION: PNEUMONIA TECHNIQUE: One view COMPARISON: 03/24/2019 FINDINGS: Bilateral airspace consolidation is again identified. There may be marginal improvement on the right. No new consolidation is appreciated. Cardiac silhouette is stable. IMPRESSION: Questionable marginal improvement of consolidation on the right. Stable chest, otherwise. Electronically signed by Alton Joseph 03/25/2019 8:53 AM
--- NOTE | 2019-03-25 09:37 | ORTHOPAEDICS PROGRESS NOTE ---
DATE: 03/25/2019 SUBJECTIVE: Ms. Grossman is lying in bed this morning. We ended up having to cancel her case yesterday secondary to pneumonia and pulmonary issues. OBJECTIVE: Left lower extremity exam: Splint is still clean, dry, and intact. She is able to move the toes well, and she has good capillary refill in the toes. IMAGING: Radiograph from yesterday shows the ankle is still fairly reduced. It is subluxated just a little laterally, but not in the anterior-posterior. ASSESSMENT: Left ankle fracture dislocation. PLAN: We are going to attempt to put her back on the schedule for 03/27/2019, for an open reduction and internal fixation of the left ankle. She will be n.p.o. after midnight on 03/26/2019. cc: Mejia Paige MD
[2019-03-25] MEDS: ZOFRAN PO PRN (18:45)
[2019-03-25] MEDS: PRAVACHOL PO SCH (23:00)
[2019-03-26] MEDS: NORCO-10 PO PRN ×3 (00:13→18:29)
[2019-03-26] MEDS: DUONEB (A & A) INH SCH ×6 (03:41→23:10)
[2019-03-26] MEDS: ZOSYN 3.375 GM in NS 50 ML IV SCH ×4 (04:38→22:00)
[2019-03-26] MEDS: NS 1,000 ML IV SCH ×2 (04:38→16:49)
[2019-03-26] MEDS: SYNTHROID PO SCH (06:10)
[2019-03-26 06:46] LABS: BASO# 0.03 X1000 (0.0-0.2); BASO% 0.2 % (0.0-0.8); EOS# 0.44 X1000 (0.0-0.7); HEMATOCRIT 28.8 % (37.0-47.0); HEMOGLOBIN 9.2 g/dL (12.0-16.0); IMM GRAN# 0.07 X1000 (0.0-0.04); IMM GRAN% 0.5 % (0.0-0.5); LYMPH# 1.59 X1000 (1.2-3.4); LYMPH% 10.7 % (20.5-51.1); MCH 30.7 PG (27-31); MCHC 31.9 g/dL (33-37); MONO# 1.96 X1000 (0.11-0.59); MONO% 13.2 % (1.7-9.3); MPV 10.3 FL (7.4-10.4); NEUT# 10.73 X1000 (1.4-6.5); NEUT% 72.4 % (42.2-75.2); PLT 278 X1000 (130-400); RDW 13.9 % (11.5-14.5); WBC 14.82 X1000 (4.8-10.8)
[2019-03-26 07:14] LABS: ALBUMIN 3.3 g/dL (3.5-5.0); CALCIUM 8.6 mg/dL (8.8-10.2); CREATININE 1.2 mg/dL (0.5-0.9); POTASSIUM 4.7 mmol/L (3.5-5.1); TOTAL BILIRUBIN 0.67 mg/dL (0.20-1.00); TOTAL PROTEIN 6.5 g/dL (6.3-8.3)
--- NOTE | 2019-03-26 08:43 | ORTHOPAEDICS PROGRESS NOTE ---
DATE: 03/26/2019 SUBJECTIVE: Ms. Grossman is lying in bed this morning. Pain seems controlled. OBJECTIVE: On left lower extremity exam, splint is clean, dry, and intact. She still remains neurovascularly intact to the left lower extremity. Not a lot of swelling to the foot today. ASSESSMENT: Left ankle fracture dislocation. PLAN: We will plan on doing everything tomorrow. From a surgery standpoint, this will be a left open reduction internal fixation ankle. She is n.p.o. after midnight tonight. I went over everything with her and she is okay with going to surgery for tomorrow. cc: Mejia Paige MD MTDD
[2019-03-26] MEDS: LEVAQUIN PO SCH (09:50)
[2019-03-26] MEDS: TENORMIN PO SCH (09:50)
[2019-03-26] MEDS: KLONOPIN PO SCH (09:50)
[2019-03-26] MEDS: CELEXA PO SCH (09:50)
[2019-03-26] MEDS: ZYVOX PO SCH ×2 (09:50→21:02)
[2019-03-26] MEDS: BENTYL PO SCH ×5 (09:50→21:02)
--- NOTE | 2019-03-26 17:05 | PROGRESS NOTE ---
DATE: 03/26/2019 SUBJECTIVE: Patient resting on bed. OBJECTIVE: Vital signs: Temperature 98.9 degrees, pulse 120, pulse is 87, respiratory rate is 16, blood pressure is 124/57, oxygen saturation is 97%. HEENT: Atraumatic, normocephalic. Cardiovascular System: S1, S2. Respiratory system has evidence of good air entry bilaterally. Abdomen is soft, nontender. No masses felt. Extremities: No evidence of edema. Central Nervous System: No obvious focal deficit noted. DIAGNOSTIC STUDIES: WBC is 14.82, hematocrit is 28.8 with a platelet count of 278,000. Sodium is 136, potassium 4.7, chloride 99, bicarbonate 25, BUN is 23, creatinine is 1.2. ASSESSMENT AND PLAN: 1. Encephalopathy, improved. 2. Hyponatremia, resolved. 3. Right ankle fracture. Orthopedics consulted. 4. Pneumonia. Continue current antibiotic regimen. 5. Escherichia coli urinary tract infection. Continue current antibiotic regimen. 6. Hypothyroidism. Continue levothyroxine. 7. Gastroesophageal reflux disease. Continue proton pump inhibitor. 8. Acute kidney injury, improved. 9. Anemia. Follow up on hemoglobin, hematocrit. Transfuse PRBCs as needed. 10. Deep vein thrombosis prophylaxis. Sequential compression devices. cc: Gm Caballero MD
[2019-03-26] MEDS: PRAVACHOL PO SCH (21:02)
[2019-03-26] MEDS: TYLENOL PO PRN (21:07)
[2019-03-27] MEDS: ZOFRAN PO PRN (00:16)
[2019-03-27] MEDS: NORCO-10 PO PRN ×2 (02:47→21:21)
[2019-03-27] MEDS: DUONEB (A & A) INH SCH ×6 (03:51→23:13)
[2019-03-27] MEDS: ZOSYN 3.375 GM in NS 50 ML IV SCH ×3 (05:31→19:36)
[2019-03-27] MEDS: SYNTHROID PO SCH (07:02)
--- NOTE | 2019-03-27 07:53 | ORTHOPAEDICS PROGRESS NOTE ---
DATE: 03/27/2019 SUBJECTIVE: Ms. Grossman says she is feeling a lot better. OBJECTIVE: On left lower extremity exam, splint is clean, dry, and intact. She has good dorsiflexion and plantar flexion of the toes, and good capillary refill to all the toes, and it looks like her swelling has come down a little bit. ASSESSMENT: Left ankle fracture dislocation. PLAN: Will plan on open reduction internal fixation of Ms. Grossman's left ankle today. I have already gone over the risks and benefits with her. She is n.p.o. now. She is nonweightbearing on the left lower extremity. Will plan on doing it this morning. cc: Mejia Paige MD
[2019-03-27] MEDS ORDERED: XYLOCAINE-MPF 2% ONE (08:54)
[2019-03-27] MEDS ORDERED: DIPRIVAN 1% ONE (08:54)
[2019-03-27] MEDS ORDERED: SUFENTA ONE (08:56)
[2019-03-27] MEDS: NS 1,000 ML IV SCH (08:57)
[2019-03-27] MEDS: TENORMIN PO SCH (08:57)
[2019-03-27] MEDS ORDERED: MARCAINE 0.5% PF ONE (09:35)
[2019-03-27] MEDS ORDERED: XYLOCAINE 1% ONE (09:35)
[2019-03-27] MEDS ORDERED: KEFZOL 2 GM/D5W 2 GM/50 ML IVPB ONE (10:04)
[2019-03-27] MEDS ORDERED: ZOFRAN ONE (11:14)
[2019-03-27] MEDS: BENTYL PO SCH ×3 (13:10→21:20)
--- NOTE | 2019-03-27 16:12 | OPERATIVE NOTE ---
PROCEDURE DATE: 03/27/2019 PREOPERATIVE DIAGNOSIS: Left bimalleolar ankle fracture-dislocation. POSTOP DIAGNOSIS: 1. Left bimalleolar ankle fracture-dislocation. 2. Left deltoid tear. PROCEDURES: 1. Left open reduction and internal fixation bimalleolar ankle fracture. 2. Left primary deltoid repair. SURGEON: Dr. Mejia Paige. CHIEF CATALYST OPERATOR: SUSAN Serna, who was an integral part of the case, helping with all aspects of the case and helping to increase our OR efficiency greatly. ANESTHESIA: General with LMA. IMPLANTS: 1. Medline distal fibular locking plate and screws. 2. Medline 4-0 cannulated screws x2. 3. [employer] JuggerKnot suture anchor. DISPOSITION: To PACU, hemodynamically stable. INDICATIONS FOR PROCEDURE: Ms. Grossman 79-year-old female who suffered ankle fracture-dislocation was admitted to the hospital this past week. Unfortunately, she has also had a lot of pulmonary issues going on and has been a little too ill to undergo operative intervention. She had been reduced in the ER and we x-rayed her several days in to make sure that everything was still reduced and it was but I did discuss with operative intervention. She expressed understanding, wished to proceed. DESCRIPTION OF PROCEDURE: Ms. Grossman was identified preoperative holding area. The left foot was marked as correct surgical site. She was then wheeled to the operating room, placed supine on the operating table. All bony prominences well padded. She was induced under general anesthesia. LMA was placed. Tourniquet placed left thigh. Left lower extremity then prepped with chlorhexidine, gluconate scrub and then ChloraPrep and draped in normal sterile fashion. Surgical pause was performed. We identified the correct patient, correct side, and the correct procedure. Preop antibiotics were given. Esmarch was used to exsanguinate the left lower extremity and tourniquet was inflated 300 mmHg. I started with an incision over the lateral aspect of the distal fibula. Dissection was carried down. We stayed a little low to avoid some skin necrosis in the anterior lateral aspect of the ankle. Dissection was carried down. We easily found our fracture, cleaned out the fracture site so we could get a good reduction. Pulled traction and that fracture did lee in really well. Her bone was extremely soft and I felt like a lag screw would not hold well from a traditional sense so I temporarily pinned it with K-wires, I was then able to get my posterior plate on, 3 screws proximal, locking screws distally and I was able through the plate to do a lag screw and actually held together really well. She seemed nice and stable at this point. The fibula was out to length and she was nice and reduced. Came on the medial side, made an incision over the medial malleolus. Dissection was carried down. We easily identified the fracture site, could also see that the entire anterior capsule and anterior deltoid was avulsed off the bone so we peered into the joint. I did not see any debris in the joint. We did cleaned out some of the fracture site so we get a good reduction. I then put 2 cannulated screws up to hold that medial malleolar fracture intact and fluoroscopic imaging showed that actually looked really good. I was happy with that. I then placed a JuggerKnot suture anchor and pulled the deltoid back up to the medial malleolus and then using bone tunnel I was able to pull some of the anterior capsule up to the anterior tibia with 0 Vicryl. That actually close that down really well and repaired the capsule and the deltoid. After this, everything did seem nice and stable. Final images were taken which showed we had good reduction, a good length of the fibula, good ankle mortise and then external rotation stress test did not open up medially or at the syndesmosis. We then closed everything in layered fashion, 0 Vicryl for the deep layer, 2-0 Vicryl for the subcutaneous and win on the skin. Adaptic, 4 x 4s, ABD, soft roll, posterior splint was applied. Tourniquet was let down. Patient had good capillary refill return to the toes. She was then woken from general anesthesia, moved her own bed and taken to PACU stable condition. PLAN: Postop she will be nonweightbearing left lower extremity. Will continue to follow her while she is in the hospital. cc: Mejia Paige MD
[2019-03-27] MEDS: ZYVOX PO SCH ×2 (16:39→21:20)
[2019-03-27] MEDS: KLONOPIN PO SCH ×2 (16:39→21:20)
[2019-03-27] MEDS: CELEXA PO SCH (16:39)
--- NOTE | 2019-03-27 16:50 | PROGRESS NOTE ---
DATE: 03/27/2019 SUBJECTIVE: The patient resting in bed. She is disoriented since coming from surgery. OBJECTIVE: Vital signs: Temperature 98.4 degrees, pulse 65 respiratory rate is 20, blood pressure 94/56, oxygen saturation is 99%. HEENT: Atraumatic, normocephalic. Cardiovascular System: S1, S2. Respiratory system has evidence of good air entry bilaterally. Abdomen is soft, nontender. No masses felt. Extremities: No evidence of edema. Has a dressing around the left lower extremity. Central Nervous System: The patient is currently confused. DIAGNOSTIC STUDIES: None. ASSESSMENT AND PLAN: 1. Encephalopathy. Probably secondary to effect of anesthesia. We will continue to observe the patient. Hopefully, this will improve with time. 2. Hyponatremia. Resolved. 3. Right ankle fracture status post open reduction with internal fixation. Orthopedics following. 4. Pneumonia. Continue current antibiotic regimen. 5. Escherichia coli urinary tract infection. Continue current antibiotic regimen. 6. Hypothyroidism. Continue levothyroxine. 7. Gastroesophageal reflux disease. Continue proton pump inhibitor. 8. Acute kidney injury. Follow up on renal function. Avoid nephrotoxic agents. 9. Anemia. Follow up on hemoglobin and hematocrit. Transfuse PRBCs as needed. 10. Deep vein thrombosis prophylaxis. Sequential compression devices. cc: Gm Caballero MD MTDD
[2019-03-27] MEDS: LEVAQUIN PO SCH (17:22)
[2019-03-27] MEDS: OXY IR PO PRN (19:36)
[2019-03-27] MEDS: PERIDEX MT SCH (21:20)
[2019-03-27] MEDS: PRAVACHOL PO SCH (21:20)
[2019-03-28] MEDS: ZOSYN 3.375 GM in NS 50 ML IV SCH ×2 (01:03→06:17)
[2019-03-28] MEDS: OXY IR PO PRN ×3 (01:03→21:31)
[2019-03-28] MEDS: DUONEB (A & A) INH SCH ×6 (03:05→23:20)
[2019-03-28 06:13] LABS: BASO# 0.02 X1000 (0.0-0.2); BASO% 0.1 % (0.0-0.8); EOS# 0.07 X1000 (0.0-0.7); EOS% 0.4 % (0.0-10.0); HEMATOCRIT 27.4 % (37.0-47.0); HEMOGLOBIN 8.9 g/dL (12.0-16.0); IMM GRAN# 0.12 X1000 (0.0-0.04); IMM GRAN% 0.7 % (0.0-0.5); LYMPH# 1.26 X1000 (1.2-3.4); LYMPH% 7.8 % (20.5-51.1); MCH 31.4 PG (27-31); MCHC 32.5 g/dL (33-37); MCV 96.8 FL (81-99); MONO% 9.2 % (1.7-9.3); MPV 10.2 FL (7.4-10.4); NEUT# 13.26 X1000 (1.4-6.5); NEUT% 81.8 % (42.2-75.2); PLT 244 X1000 (130-400); RBC 2.83 XMIL (4.2-5.4); RDW 13.7 % (11.5-14.5); WBC 16.23 X1000 (4.8-10.8)
[2019-03-28] MEDS: LOVENOX SUBQ SCH (06:17)
[2019-03-28] MEDS: SYNTHROID PO SCH (06:17)
[2019-03-28] MEDS: NORCO-10 PO PRN ×2 (06:17→23:54)
[2019-03-28] MEDS: NS 1,000 ML IV SCH ×2 (06:18→17:15)
[2019-03-28 06:56] LABS: ALB/GLOB RATIO 0.8; ALBUMIN 2.9 g/dL (3.5-5.0); CALCIUM 8.5 mg/dL (8.8-10.2); CREATININE 1.3 mg/dL (0.5-0.9); POTASSIUM 4.5 mmol/L (3.5-5.1); TOTAL BILIRUBIN 0.73 mg/dL (0.20-1.00); TOTAL PROTEIN 6.5 g/dL (6.3-8.3)
[2019-03-28] MEDS: BENTYL PO SCH ×4 (09:55→21:31)
[2019-03-28] MEDS: PERIDEX MT SCH (09:55)
[2019-03-28] MEDS: LEVAQUIN PO SCH (09:55)
[2019-03-28] MEDS: ZYVOX PO SCH ×2 (09:55→21:31)
[2019-03-28] MEDS: CELEXA PO SCH (09:55)
[2019-03-28] MEDS: TENORMIN PO SCH (09:55)
[2019-03-28] MEDS: KLONOPIN PO SCH (09:55)
--- NOTE | 2019-03-28 15:10 | PROGRESS NOTE ---
DATE: 03/28/2019 SUBJECTIVE: Today, Ms. Grossman refers to be doing fairly okay. The was at the bedside at the time of the encounter. OBJECTIVE: Vital Signs: Blood pressure is 108/50, pulse of 84, respirations are 20, temperature is 98.2 degrees. General Examination: Ms. Grossman is a 79-year-old, female. She is in bed. She does not seem to be in any cardiopulmonary distress. HEENT: Mucosa is pink and moist. Anicteric. Acyanotic. Neck: Supple. Chest: Good air entry bilaterally. A few crackles posteriorly. Cardiovascular: Regular rate and rhythm. Abdomen: Soft and nontender. Extremities: No pedal edema. The left lower extremity is still in orthopedic boots. ROUTE SERVICE REPRESENTATIVE: The patient is awake, alert. Follows basic commands. Laboratory Data: WBC 16.23, hemoglobin is 8.9, platelet count of 244,000. Chemistry is also reviewed. Bicarb is 19. The patient's current medications have all been reviewed. The urinalysis was positive for E. coli which is resistant to Levaquin, so we have discontinued Levaquin. ASSESSMENT: 1. Altered mental status, gradually improving. There is no focal deficit and a CT scan of the head was unremarkable for any acute findings. 2. Left ankle bimalleolar fracture. The patient is status post open reduction and internal fixation by Dr. Paige. Today is day 1 postop. We will follow further recommendations from him. 3. Bilateral pneumonia. Patient is currently on cefepime and Zyvox. 4. Hypothyroidism. We will continue with levothyroxine. 5. Escherichia coli. Patient's antibiotic has been changed because it is resistant to Levaquin. 6. Transaminitis, presumably ischemic liver. The patient did have episode of hypotension yesterday. I think that was during surgery and after surgery for some time. We are going to keep an eye on this and avoid any hepatotoxins. 7. Acute on chronic renal failure. Creatinine seems to be at baseline. 8. Generalized weakness. We will encourage the patient to participate more with physical therapy. cc: Justen Ku MD
[2019-03-28] MEDS: MAXIPIME 1 GM in NS 50 ML IV SCH (16:27)
[2019-03-28] MEDS: PRAVACHOL PO SCH (21:31)
[2019-03-29] MEDS: MAXIPIME 1 GM in NS 50 ML IV SCH ×2 (02:32→14:04)
[2019-03-29] MEDS: PERIDEX MT SCH ×3 (02:46→20:33)
[2019-03-29] MEDS: DUONEB (A & A) INH SCH ×6 (03:54→23:45)
[2019-03-29 05:54] LABS: BASO# 0.02 X1000 (0.0-0.2); BASO% 0.1 % (0.0-0.8); EOS# 0.05 X1000 (0.0-0.7); EOS% 0.4 % (0.0-10.0); HEMOGLOBIN 8.9 g/dL (12.0-16.0); IMM GRAN% 0.7 % (0.0-0.5); LYMPH# 1.38 X1000 (1.2-3.4); LYMPH% 9.9 % (20.5-51.1); MCH 32.2 PG (27-31); MCV 97.8 FL (81-99); MONO# 1.15 X1000 (0.11-0.59); MONO% 8.2 % (1.7-9.3); MPV 10.4 FL (7.4-10.4); NEUT% 80.7 % (42.2-75.2); PLT 195 X1000 (130-400); RBC 2.76 XMIL (4.2-5.4)
[2019-03-29] MEDS: OXY IR PO PRN ×2 (06:16→16:30)
[2019-03-29] MEDS: LOVENOX SUBQ SCH (06:16)
[2019-03-29 06:18] LABS: ALB/GLOB RATIO 0.7; ALBUMIN 2.7 g/dL (3.5-5.0); CALCIUM 8.4 mg/dL (8.8-10.2); CREATININE 1.1 mg/dL (0.5-0.9); POTASSIUM 4.7 mmol/L (3.5-5.1); TOTAL BILIRUBIN 0.69 mg/dL (0.20-1.00); TOTAL PROTEIN 6.5 g/dL (6.3-8.3)
[2019-03-29] MEDS: SYNTHROID PO SCH (06:18)
--- NOTE | 2019-03-29 07:20 | ORTHOPAEDICS PROGRESS NOTE ---
DATE: 03/29/2019 SUBJECTIVE DATA: Ms. Grossman is lying in bed. Overall, she is looking much better. She is much more appropriate today. OBJECTIVE DATA: Left Lower Extremity Examination: Her surgical splint is clean, dry, and intact. She is able to wiggle the toes. She has good capillary refill. She has good sensation. ASSESSMENT: Status post left open reduction and internal fixation, ankle. PLAN: We are postop day 2 today. Ms. Grossman is overall doing much better. She was much more appropriate with me this morning. She states her pain is well controlled. She is nonweightbearing on this left lower extremity. If she is able to be discharged, we would like to see her in 1 to 2 weeks for an office visit with Dr. Paige. Dictated by SUSAN Serna for Mejia Paige MD cc: SUSAN Serna MD
--- NOTE | 2019-03-29 08:42 | ORTHOPAEDICS PROGRESS NOTE ---
DATE: 03/28/2019 SUBJECTIVE: Ms. Grossman is lying in bed this morning. She is responding. She seems to be just a little disoriented this morning. OBJECTIVE: Left lower extremity exam, splint is clean, dry, and intact. She is able to move the toes well. She has good capillary refill to all the toes. ASSESSMENT: Status post open reduction and internal fixation ankle. PLAN: I discussed with Ms. Grossman and her about the ankle. She will need to be nonweightbearing over the next 6 weeks. They are going to start discharge planning. We will continue to follow while she is in the hospital. If she is discharged I will need to see her in a week in clinic and will go to a cast at that time. cc: Mejia Paige MD
[2019-03-29 09:00] LABS: INR 1.73; PROTIME 21.5 Seconds (11.0-16.0)
[2019-03-29] MEDS: ZYVOX PO SCH ×2 (09:25→20:33)
[2019-03-29] MEDS: BENTYL PO SCH ×4 (09:25→20:33)
[2019-03-29] MEDS: KLONOPIN PO SCH (09:25)
[2019-03-29] MEDS: CELEXA PO SCH (09:26)
[2019-03-29] MEDS: TENORMIN PO SCH (09:27)
[2019-03-29] MEDS: NS 1,000 ML IV SCH (12:44)
--- NOTE | 2019-03-29 13:23 | Diag Imaging Result Doc PS360 ---
EXAM: CHEST-PORTABLE 03/29/2019 HISTORY: dyspnea TECHNIQUE: AP portable at 1312 COMMENT: There are patchy alveolar opacities bilaterally. This may be slightly improved in the lingula with better definition of the left heart border. The inspiration is actually less optimal than on the previous study. IMPRESSION: Slightly improved pneumonia plus minus pulmonary edema. Electronically signed by Cyril Alvarez 03/29/2019 1:20 PM
--- NOTE | 2019-03-29 15:32 | PROGRESS NOTE ---
DATE: 03/29/2019 SUBJECTIVE: This morning, Ms. Grossman refers to be doing a little better. The was at the bedside at the time of the encounter. She denies any new complaints. OBJECTIVE: Vital Signs: Blood pressure is 132/77, pulse of 68, respirations are 16, temperature is 98.0, and the patient was saturating 100% on room air. General Examination: Ms. Grossman is a 79- year-old, female. She is in bed. No distress. HEENT: Mucosa is pink and moist. Anicteric. Acyanotic. Neck: Supple. Chest: Good air entry bilaterally. There are still a few crackles posteriorly, more so to the left posterior lung field. Cardiovascular: Regular rate and rhythm. No murmurs, rubs, or gallops. Abdomen: Soft and nontender. Bowel sounds present. Extremities: No pedal edema. The left lower extremity is in orthopedic boots. BELT SPLICER: The patient is awake. Follows basic commands. Laboratory Data: WBC is down to 14.00, hemoglobin is 8.9, platelet count of 195,000. Chemistry is also reviewed. Creatinine is down to 1.1, sodium is 137, the rest of chemistry is unremarkable. AST is fairly the same at 1091, AST is 684, these are slightly elevated more than yesterday. ASSESSMENT: 1. Altered mental status, secondary to global encephalopathy, probably on the baseline of dementia. CT scan was unremarkable and patient's mentation seems to be improving. 2. Left ankle bimalleolar fracture. The patient is status post open reduction and internal fixation by Dr. Paige. Today is day 2 postop. Physical Therapy has been consulted. 3. Bilateral pneumonia. Patient is on cefepime and Zyvox. 4. Escherichia coli urinary tract infection. 5. Transaminitis, presumably shock liver. Drug induced liver injury is also a possibility. Liver enzymes are fairly stable today. We are going to continue to observe them and avoid any hepatotoxin. 6. Acute on chronic kidney injury. Creatinine is back to baseline. 7. Generalized weakness and deconditioning. Physical Therapy has been consulted. There is a plan for Ms. Grossman to go to [facility] [place] hopefully tomorrow, if she is medically stable. So, in general, I think Ms. Grossman is doing a lot better. She is being seen by Orthopedics this morning and they are okay for her to go to rehab. Ms. Grossman's liver enzymes have been trending up since yesterday. We think it is either medication or ischemic injury to the liver. Will continue to monitor the levels. If there is a downward trend, then we will discharge her to the long-term to follow up in about a week with a repeat liver function test. Her chest x-ray this morning also reveals slightly improved pneumonia. So, we are going to continue with antimicrobial therapy. There is an ultrasound of the abdomen to look at the liver for any abnormality, which is still pending. cc: Justen Ku MD MTDD
--- NOTE | 2019-03-29 16:06 | Diag Imaging Result Doc PS360 ---
EXAM: US ABDOMEN-COMPLETE 03/29/2019 HISTORY: acute transaminitis TECHNIQUE: Abdominal ultrasound COMMENT: There is antegrade flow in the portal vein. The liver is unremarkable in appearance. The gallbladder is clear and nontender. There is no evidence of biliary dilatation the common bile duct measuring 4 mm in diameter. The spleen is nonenlarged. The visualized portions of the aorta and inferior vena cava are within normal limits. The pancreas is obscured. The kidneys are without evidence of hydronephrosis or mass. IMPRESSION: No evidence of acute disease. Electronically signed by Cyril Alvarez 03/29/2019 4:04 PM
[2019-03-29] MEDS: PRAVACHOL PO SCH (20:33)
[2019-03-29] MEDS: NORCO-10 PO PRN (20:33)
[2019-03-30] MEDS: MAXIPIME 1 GM in NS 50 ML IV SCH (02:19)
[2019-03-30] MEDS: OXY IR PO PRN (03:44)
[2019-03-30] MEDS: DUONEB (A & A) INH SCH ×3 (04:08→11:00)
[2019-03-30] MEDS: SYNTHROID PO SCH (06:17)
[2019-03-30] MEDS: LOVENOX SUBQ SCH (06:19)
[2019-03-30 06:22] LABS: BASO# 0.02 X1000 (0.0-0.2); BASO% 0.2 % (0.0-0.8); EOS% 0.8 % (0.0-10.0); HEMATOCRIT 26.5 % (37.0-47.0); HEMOGLOBIN 8.5 g/dL (12.0-16.0); IMM GRAN# 0.07 X1000 (0.0-0.04); IMM GRAN% 0.6 % (0.0-0.5); LYMPH# 1.64 X1000 (1.2-3.4); LYMPH% 13.7 % (20.5-51.1); MCH 31.3 PG (27-31); MCHC 32.1 g/dL (33-37); MCV 97.4 FL (81-99); MONO% 6.7 % (1.7-9.3); MPV 10.3 FL (7.4-10.4); NEUT# 9.36 X1000 (1.4-6.5); PLT 180 X1000 (130-400); RBC 2.72 XMIL (4.2-5.4); RDW 14.1 % (11.5-14.5); WBC 11.99 X1000 (4.8-10.8)
[2019-03-30 06:34] LABS: ALB/GLOB RATIO 0.8; CALCIUM 8.8 mg/dL (8.8-10.2); CREATININE 1.1 mg/dL (0.5-0.9); POTASSIUM 4.1 mmol/L (3.5-5.1); TOTAL BILIRUBIN 0.71 mg/dL (0.20-1.00); TOTAL PROTEIN 6.7 g/dL (6.3-8.3)
[2019-03-30] MEDS ORDERED: ULTRAM PO PRN (07:40)
[2019-03-30] MEDS: BENTYL PO SCH (09:50)
[2019-03-30] MEDS: ZYVOX PO SCH (09:50)
[2019-03-30] MEDS: TENORMIN PO SCH (09:50)
[2019-03-30] MEDS: CELEXA PO SCH (09:50)
[2019-03-30] MEDS: KLONOPIN PO SCH (09:50)
[2019-03-30] MEDS: PERIDEX MT SCH (09:50)
[2019-03-30 11:09] VITALS: BP 140/68
--- NOTE | 2019-03-30 11:36 | DISCHARGE SUMMARY ---
ADMISSION DATE: 03/21/2019 DISCHARGE DATE: 03/30/2019 DISPOSITION: [facility]. FOLLOW-UP: 1. Dr. Johnnie Hampton. 2. Dr. Mejia Paige. CONSULTATION DURING THIS ADMISSION: Orthopedics was consulted. Patient was seen by Dr. Paige. INVASIVE PROCEDURES DONE DURING THIS ADMISSION: 1. Left open reduction and internal fixation of her bimalleolar left ankle fracture. 2. Left primary deltoid repair (both were done by Dr. Paige on 03/27/2019). IMAGING STUDIES OF SIGNIFICANCE: 1. A chest x-ray was done initially which showed cardiomegaly, mild left perihilar infiltrates, which may reflect pneumonia. 2. A CT scan of the head shows stable advanced chronic changes. No new pathology. 3. A repeat chest x-ray shows mild left perihilar infiltrates. 4. Multiple chest x-rays were done subsequently; a recent one was done yesterday which shows slightly improved pulmonary edema and pneumonia. 5. Ultrasound of the abdomen showed no evidence of acute disease. ADMISSION DIAGNOSES: 1. Metabolic versus toxic metabolic encephalopathy. 2. Hyponatremia. 3. New left ankle displaced fracture. 4. Hypothyroidism. DIAGNOSES AT THE TIME OF DISCHARGE: 1. Altered mental status on presentation secondary to global encephalopathy on baseline of dementia. Neuro imaging were negative for any acute pathology. 2. Left ankle bimalleolar fracture. Patient is status post open reduction, internal fixation. 3. Bilateral pneumonia patient is on intravenous antibiotics. She will continue with Augmentin and Zyvox for a total of 10 days. 4. Escherichia coli urinary tract infection. This has been treated. 5. Transaminitis, presumably shock liver. Liver enzymes continue to be trending down. Patient is advised to repeat liver function tests within about a week. Hepatitis panel was pending at the time of the dictation. 6. Acute on chronic kidney failure. Creatinine is back to baseline 1.1. 7. Generalized weakness and deconditioning. Patient has been evaluated by physical therapy, and she will be transferred to rehab to continue with physical evangelical. 8. Hypothyroidism. Will continue with levothyroxine supplement. DISCHARGE MEDICATIONS: 1. Pravastatin 40 mg p.o. daily. 2. Synthroid 75 mcg p.o. daily. 3. Citalopram 40 mg p.o. daily. 5. Clonazepam 0.5 p.o. daily. 6. Atenolol 50 mg p.o. daily. 7. Morphine sulfate 50 mg p.o. q. 6 hours. 8. Augmentin 875 b.i.d. 9. Tramadol 50 mg p.o. q. 6 hours. 10. Zyvox 600 p.o. q. 12 hours. PRESENTING COMPLAINT: Altered mental status. HISTORY OF PRESENT COMPLAINT: Ms. Grossman is a 79-year-old female with a history of multiple comorbidities, including hypertension, anxiety, depression, chronic pain, who was initially seen at [facility], was found to be altered and broken left ankle. Orthopedics was consulted and patient was brought over here for both medical and orthopedic evaluation. HOSPITAL COURSE: Ms. Grossman was admitted to the medical floor. She initially was adequately hydrated. Pain was controlled. Her mentation got slightly better. She was found to have questionable aspiration pneumonia, was treated with IV antibiotics. Ms. Grossman was subsequently sent for orthopedic intervention on 03/27/[address] Paige. She tolerated procedure well with no postsurgical complications. Postoperatively, she had physical therapy evaluation. She also had been tolerating her diet and had been having regular bowel and bladder evacuations. Today she feels a lot better. No new complaints. We think she is fairly stable for discharge to rehab and continue with her physical evangelical. Of note, during surgery it appears that Ms. Grossman had a couple episodes of hypotension and subsequently her liver enzymes got elevated. We thought that she had ischemic liver. The enzymes have been trending down today. She has been advised to repeat LFTs within a week and follow up accordingly with her primary care doctor. All the discharge instructions have been discussed with her; the was at the bedside at the time of the encounter. They both voiced understanding. TIME SPENT FOR DISCHARGE: 37 minutes. cc: Mejia Paige MD [facility] medical staff MD Johnnie Huggins MD MTDD
--- NOTE | 2019-03-30 13:20 | ORTHOPAEDICS PROGRESS NOTE ---
DATE: 03/30/2019 SUBJECTIVE DATA: Ms. Grossman is lying in bed. She is definitely more alert and appropriate today. OBJECTIVE DATA: Left lower extremity exam: Her surgical splint is clean, dry, and intact. She is able to move the toes. She has good sensation to light touch. Good capillary refill. ASSESSMENT: Status post left open reduction, internal fixation ankle. PLAN: We do want Ms. Grossman to get up to the bedside chair today. We would like to try to get her a little more mobile. She is nonweightbearing to the left lower extremity, so she will need assistance and a walker. We believe the plan is for her to go to rehab. From Orthopedic standpoint, we are good with her discharge, just for her to remain nonweightbearing on this left lower extremity. We would like to follow up with her in the office in 1 to 2 weeks depending on rehab. Dictated by SUSAN Serna for Mejia Paige MD cc: SUSAN Serna MD
[2019-03-31 10:05] LABS: HEPATITIS PROFILE ACUTE SEE COMMENTS
== END 2019-03-30 13:40 | DRG 981 ==
LOC: SUPCPDRO → ED 14:22 → EDIPHOLD 21:08 → SUATTDRO 21:08 → 3S 03-22 13:41 → 4N 03-23 14:10
PROVIDERS: ATTEND Internal Medicine
CPT/HCPCS: 36430; 51702; 70450; 71010; 71045; 73610; 76000; 76700; 80048; 80053; 80074; 81001; 82533; 82570; 82607; 82746; 82805; 82948; 83605; 83930; 83935; 84295; 84300; 84439; 84443; 84484; 85025; 85610; 85730; 86850; 86900; 86901; 86920; 87040; 87077; 87088; 87186; 93005; 94640; 94760; 94761; 94762; 94799; 96361; 96365; 96375; 97110; 97162; 97530; 99285; 99291; A9270; J0690; J0692; J0696; J1650; J1956; J2270; J2405; J2543; J7030; P9016; S0020; XXXXX

== ENCOUNTER 2019-04-10 11:08 | Inpatient (IN) ==
--- NOTE | 2019-04-10 12:35 | PROVIDER DOCUMENTATION ---
HPI-General Adult - General Chief Complaint: Abnormal Lab[s] Stated Complaint: low H&H Time Seen by Provider: 04/10/19 11:32 Source: patient, family Allergies/Adverse Reactions: Patient Allergies Allergy/AdvReac Type Severity Reaction Status Date / Time No Known Allergies Allergy Verified 11/25/18 12:55 Home Medications: Home Medication List Medication Instructions Recorded Confirmed Last Taken Type Levothyroxine [Synthroid] 75 microgm PO DAILY 05/29/17 03/22/19 11/24/18 08:00 History Pravastatin Sodium 40 mg PO DAILY 05/29/17 03/22/19 11/24/18 21:00 History Citalopram [Celexa] 40 mg PO DAILY tablet 06/01/17 03/22/19 11/24/18 21:00 Rx Dicyclomine [Bentyl] 20 mg PO 4XDAY capsule 06/01/17 03/22/19 11/24/18 21:00 Rx Ondansetron [Zofran] 4 mg PO Q6H PRN PRN #0 tablet 06/01/17 03/22/19 11/23/18 Rx Atenolol [Tenormin] 50 mg PO DAILY 11/23/18 03/22/19 11/24/18 08:00 History Clonazepam 0.5 mg PO DAILY 11/23/18 03/22/19 11/24/18 21:00 History Amoxicillin/Potassium Clav 1 ea PO BID #10 tab 03/30/19 Unknown Rx [Augmentin 875-125 Tablet] Linezolid [Zyvox] 600 mg PO Q12H #10 tab 03/30/19 Unknown Rx Morphine Sulfate 15 mg PO Q6HR #20 tab 03/30/19 Unknown Rx Polyethylene Glycol 3350 [Miralax] 17 gm PO DAILY #20 powd.pack 03/30/19 Unknown Rx Tramadol [Ultram] 50 mg PO Q6H PRN PRN #30 tab 03/30/19 Unknown Rx - History of Present Illness -Gen Adult Nature of Presenting Problems: [id number] presents to the ER via EMS from [facility] with c/o abnormal lab results. The family states that "she has no blood". She was recently admitted 3 weeks ago for an ORIF of the left ankle. The patient states she is weak but denies any dizziness or syncopal episode. VS are stable. Location of Pain/Injury: reports: none Associated Symptoms: reports: weakness. denies: dizziness, fever/chills, shortness of breath Review of Systems - Adult - REVIEW OF SYSTEMS - ADULT Constitutional: reports: see HPI. denies: chills, fever, fatique Eyes: reports: no symptoms reported Ears, Nose, Mouth & Throat: reports: no symptoms reported Cardiovascular: reports: no symptoms reported. denies: chest pain, heart murmur Respiratory: reports: no symptoms reported. denies: cough, dyspnea on exertion Gastrointestinal: reports: no symptoms reported. denies: abdominal pain, diarrhea, nausea, vomiting Genitourinary: reports: no symptoms reported Musculoskeletal: reports: no symptoms reported, bone pain (left ankle) Integumentary: reports: no symptoms reported Neurological: reports: no symptoms reported. denies: dizziness/vertigo Psychiatric: reports: no symptoms reported Endocrine: reports: no symptoms reported Hematologic/Lymphatic: reports: no symptoms reported Allergic/Immunologic: reports: no symptoms reported All Other Systems: Reviewed and Negative Past History - Adult - PAST MEDICAL HISTORY-ADULT Review of Records: reports: Old Records Reviewed, Nursing Assessment Review, Medications Reviewed, Social history reviewed & non-contributory. Major Childhood Illnesses: reports: denies history Cardiovascular: reports: HTN Respiratory: reports: denies history Gastrointestinal: reports: GERD Obstetrical/Gynecological: reports: denies history Genitourinary: reports: denies history Musculoskeletal: reports: denies history Neurological: reports: denies history Psychiatric: reports: anxiety Endocrine/Immune: reports: denies history Other Conditions: reports: denies history - IMMUNIZATION STATUS Childhood Immunizations: See Nurse Assessment Flu Vaccine: See Nurse Assessment - FAMILY HISTORY Family History: reviewed, not pertinent - SOCIAL HISTORY Living Situation: care facility Physical Exam-General - PHYSICAL EXAM-ADULT Initial Vital Signs Reviewed: Yes - CONSTITUTIONAL General Appearance: alert, mild distress - EYES Eyes: PERRL/EOMI, pink conjunctivae - HEAD, EARS, NOSE, MOUTH & THROAT HENMT: normocephalic/atraumatic, moist mucous membranes, normal ENT inspection, TMs normal - NECK Neck: non-tender, full range of motion, supple - RESPIRATORY Respiratory: chest non-tender, lungs clear, decreased breath sounds - CARDIOVASCULAR Cardiovascular: normal peripheral pulses, regular rate, rhythm - GASTROINTESTINAL (ABDOMEN) Abdominal Exam: normal bowel sounds, soft, tenderness (LLQ) - LYMPHATIC Lymphatic: no adenopathy - MUSCULOSKELETAL Extremity: other (OCL splint LLE). negative: normal gait (non-weight bearing LLE) Peripheral Pulses: radial (R): 2+, radial (L): 2+, dorsalis-pedis (R): 2+ - SKIN Integumentary: normal turgor, warm/dry, pallor - NEUROLOGIC Neurologic: snuff blender II-XII nml as tested, grossly normal, no motor/sensory deficits - PSYCHIATRIC Psych/Mental Status: normal mood/affect, oriented x 3 Progress - PLAN OF CARE/RESULTS Progress/Plan/Lab Results: Vital Signs - 8 hr 04/10/19 11:20 Temperature 99 F Pulse Rate 61 Respiratory Rate 19 Blood Pressure 123/68 O2 Sat by Pulse Oximetry 95 Orders Category Date Time Status CHEST-PORTABLE [RAD] Stat Exams 04/10/19 12:28 Ordered CBC WITH ELECTRONIC DIFF [HEME] Stat Lab 04/10/19 12:28 Uncollected COMPREHENSIVE METABOLIC PANEL [CHEM] Stat Lab 04/10/19 12:28 Uncollected MAGNESIUM [CHEM] Stat Lab 04/10/19 12:28 Uncollected PHOSPHORUS [CHEM] Stat Lab 04/10/19 12:28 Uncollected TYPE & SCREEN [BBK] Stat Lab 04/10/19 12:28 Uncollected UA NIMS W/REFLEX CULT [URINALYSIS] Stat Lab 04/10/19 12:28 Uncollected patient and family verbalize an understanding of POC and agree with treatment rendered here today. She will be admitted to the hospital for GI bleed and Pneumonia. Result Diagrams: 04/10/19 12:30 04/10/19 12:30 - XRAY 1 XRAY Study: Chest Impression: Abnormal (COMMENT: Compared to 03/29/2019 there has been some improvement in the left basilar opacities. There are patchy ill-defined alveolar opacities bilaterally including in the right upper lobe. IMPRESSION: Improved pulmonary edema and/or pneumonia.), See EMR Report - CONSULTS/PCP/HOSPITALIST Notification #1 *Consult/PCP/Hospitalist*: SUSAN Marshall for Dr Acosta Time Discussed: 13:51 Reason/Comments: GI bleed, pneumonia Consult Disposition: Admit Departure - Departure Date of Disposition Decision: 04/10/19 Time of Disposition Decision: 13:51 DIAGNOSIS: GI bleed Qualifiers: GI bleed type/associated pathology: unspecified gastrointestinal hemorrhage type Qualified Code(s): K92.2 - Gastrointestinal hemorrhage, unspecified Pneumonia Qualifiers: Pneumonia type: due to unspecified organism Laterality: right Lung location: upper lobe of lung Qualified Code(s): J18.1 - Lobar pneumonia, unspecified organism Disposition: ADMITTED INPATIENT 09 Certified Medical Emergency: Emergent Condition: Critical Additional Freetext Instructions: ED Follow Up Instructions: You have been treated by a care provider in the Emergency Department. These instructions are being provided to you so you can have an understanding of how to care for yourself upon discharge. Upon discharge from the Emergency Department, you are responsible for making arrangements for follow-up care by a physician of your choice. Take all prescribed medications as directed. Return to the Emergency Department immediately for any new or worsening symptoms. You may call the Physician Referral phone number at [phone] to obtain a list of Physicians who are taking new patients. Referrals and Follow-Ups: Johnnie Hampton [Primary Care Provider] - - Critical Care Note This patient required my direct & personal management of CC.: No Attestation - Physician/ SYLVIA Attestation Patient care was provided by Advanced Practice Provider:: Yes Advanced Practice Provider:: Les Schilling Advanced Practice Provider documentation review:: The Mid-level provider documentation, treatment plan and medical decision making was reviewed by the physician who agrees with all treatment and medical decision making by the P. The physician spent face to face time with patient:: No Advanced Practice Provider documentation review:: Supervising physician onsite and consulted in the evaluation and care of this patient. The physician did not have a face to face encounter with the patient.
--- NOTE | 2019-04-10 13:02 | Diag Imaging Result Doc PS360 ---
EXAM: CHEST-PORTABLE 04/10/2019 HISTORY: SOB TECHNIQUE: AP portable at 1242 COMMENT: Compared to 03/29/2019 there has been some improvement in the left basilar opacities. There are patchy ill-defined alveolar opacities bilaterally including in the right upper lobe. IMPRESSION: Improved pulmonary edema and/or pneumonia. Electronically signed by Cyril Alvarez 04/10/2019 1:00 PM
[2019-04-10 13:28] LABS: AGAP 11; ALB/GLOB RATIO 0.9; ALKALINE PHOSPHATASE 105 U/L (32-104); BUN 21 mg/dL (8-22); CALCIUM 8.7 mg/dL (8.8-10.2); CHLORIDE 99 mmol/L (98-107); COSMO 279; CREATININE 0.9 mg/dL (0.5-0.9); ESTIMATED GFR > 60; GLUCOSE 108 mg/dL (70-104); GOT 26 U/L (10-30); GPT 44 U/L (10-36); MAGNESIUM 1.8 mg/dL (1.5-2.7); PHOSPHORUS 2.8 mg/dL (2.7-4.5); POTASSIUM 4.3 mmol/L (3.5-5.1); SODIUM 138 mmol/L (136-145); TCO2 28 mmol/L (25-35); TOTAL BILIRUBIN 0.48 mg/dL (0.20-1.00); TOTAL PROTEIN 6.5 g/dL (6.3-8.3)
[2019-04-10 13:30] LABS: BASO# 0.02 X1000 (0.0-0.2); BASO% 0.2 % (0.0-0.8); EOS# 0.13 X1000 (0.0-0.7); EOS% 1.3 % (0.0-10.0); HEMATOCRIT 18.6 % (37.0-47.0); HEMOGLOBIN 5.9 g/dL (12.0-16.0); IMM GRAN# 0.02 X1000 (0.0-0.04); IMM GRAN% 0.2 % (0.0-0.5); LYMPH# 1.44 X1000 (1.2-3.4); MCH 30.9 PG (27-31); MCHC 31.7 g/dL (33-37); MCV 97.4 FL (81-99); MONO# 1.09 X1000 (0.11-0.59); MONO% 10.6 % (1.7-9.3); MPV 11.1 FL (7.4-10.4); NEUT% 73.7 % (42.2-75.2); PLT 133 X1000 (130-400); RBC 1.91 XMIL (4.2-5.4); RDW 13.1 % (11.5-14.5)
[2019-04-10] MEDS ORDERED: NS 1,000 ML IV ONE (13:34)
[2019-04-10 13:41] LABS: URINE SOURCE CATH
[2019-04-10 14:01] LABS: BILIRUBIN URINE NEGATIVE (NEGATIVE); BLOOD URINE NEGATIVE (NEGATIVE); COLOR YELLOW; GLUCOSE URINE NEGATIVE (NEGATIVE); KETONE URINE NEGATIVE (NEGATIVE); LEUKOCYTES URINE NEGATIVE (NEGATIVE); NITRITE URINE NEGATIVE (NEGATIVE); PROTEIN URINE TRACE mg/dL (NEGATIVE); SP GRAVITY URINE 1.017; TURBIDITY URINE CLEAR (CLEAR); UROBILINOGEN URINE NORMAL (NORMAL)
[2019-04-10 14:14] LABS: UR EPITHELIAL CELLS <10 /HPF (<10); URINE BACTERIA NEGATIVE /HPF; URINE RBC <10 /HPF (<10); URINE WBC <10 /HPF (<10)
[2019-04-10 14:54] LABS: LYMPHS 6 % (21-51); MONO 2 % (1-9); SEGS 92 % (42-75)
[2019-04-10 14:55] LABS: HYPOCHROM 1+
[2019-04-10] MEDS ORDERED: NS 500 ML IV SCH (16:00)
[2019-04-10] MEDS: PROTONIX IV SCH (17:03)
--- NOTE | 2019-04-10 17:27 | OPERATIVE NOTE ---
PROCEDURE DATE: 04/10/2019 PREOPERATIVE DIAGNOSES: 1. Phlebosclerosis. 2. Gastrointestinal bleed. POSTOPERATIVE DIAGNOSES: 1. Phlebosclerosis. 2. Gastrointestinal bleed PROCEDURE PERFORMED: Ultrasound-guided right common femoral vein central line placement. SURGEON: Mark Degroot MD SENIOR MECHANICAL PROJECT MANAGER: None. ANESTHESIA: Local administered by the surgeon. INTRAOPERATIVE FINDINGS: Ultrasound showed good caliber right common femoral vein. BRIEF HISTORY: A 79-year-old female who came in with GI bleed. They tried several attempts to place a peripheral IV and unsuccessful. She had no IV access. She needed something for resuscitation. The risks, benefits, and alternatives were discussed. All questions answered. DESCRIPTION OF PROCEDURE: After informed consent was obtained, patient remained in her ICU bed. The right groin was prepped and draped sterile fashion. After a formal time-out confirming patient and name of procedure, we turned to the right leg. Using the ultrasound, I was able to identify the right common femoral vein. We prepped and draped in standard sterile fashion. Under local anesthetic, I was able to cannulate the right common femoral vein with ultrasound guidance and passed a wire into this common femoral vein. Using the Seldinger technique, I was able to dilate up the tract to place the tip of this catheter in the inferior vena cava. All ports aspirated and flushed easily. We secured it in place and placed sterile dressing. Patient tolerated procedure well. cc: Mark Degroot MD
--- NOTE | 2019-04-10 17:50 | HISTORY AND PHYSICAL ---
They found it anemic and hemoglobin below 6. Sent here to the hospital for admission and plan to transfuse. Suspect blood-loss anemia. She was last here on 03/21/2019 admitted with altered mental status, 79-year-old who has PAST MEDICAL HISTORY: 1. Hypertension. 2. Anxiety. 3. Situational depression. 4. Chronic back pain. 5. Hyperlipidemia. 6. Hypothyroidism. 7. Gastroesophageal reflux disease. 8. Status post pacemaker placement for bradycardia. Last admission on 03/31 she was getting out of her van and fell back and try to catch but she fell the ground and broke her left ankle and could not get help, not able get back up on her ankle because of pain. EMS was called, brought to the emergency room. Review again past medical history 1 hypertension, #2 anxiety, #3 situational depression, #4 chronic back pain, #5 hyperlipidemia, #6 hypothyroidism, #7 gastroesophageal reflux disease, #8 bradycardia status post pacemaker placement. PAST SURGICAL HISTORY: 1. Pacemaker placement for bradycardia. 2. Tubal ligation. 3. Bilateral knee replacement in the past. SOCIAL HISTORY: She is and very supportive family. FAMILY HISTORY: No history given of cardiac or renal or pulmonary disease particular family. ALLERGIES: No known drug allergies. REVIEW OF SYSTEMS: General: No complaints of weight gain or loss, no fever, chills. HEENT: No complaints of change in hearing or visual acuity. Respiratory: No increased work of breathing or dyspnea. Cardiovascular: No complaints of chest pain or tachy palpitation. Gastrointestinal and Genitourinary: No change or complaints in bowels . EXAM: Saw her in ICU, temperature 98.7 degrees, pulse 63, respirations 19, blood pressure 134/74. Pupils are equal and round.Lungs: Clear in all lung fagan. Cardiovascular: Regular rhythm and rate without murmur or S3. Abdomen: Soft. Skin: Warm and dry. Conjunctiva with pallor and gums with significant pallor as well. Weight 170 pounds, height 5 feet 9 inches, skin warm and dry. No oral nasal mucosa lesions. LAB: White blood cell count 10,300, hematocrit is 18, hemoglobin 5.9, platelet count 133,000. Sodium 138, potassium 4.3, chloride 99, BUN 21, creatinine 0.9, calcium 8.7, AST is 26, ALT is 44, alkaline phosphatase is 105, albumin is 3.0. Urinalysis unremarkable. Stool sample positive for blood and I think the report was she was having some dark melenic stools. Chest x-ray improved pulmonary edema and pneumonia when compared to x-ray on 03/29/2019. ASSESSMENT AND PLAN: 1. Microcytic anemia suspect gastrointestinal blood loss anemia. Plan to give her 2 units of blood. Her MCV was 97. Will check B12 and folate, check her iron studies. 2. Left bimalleolar ankle fracture which is wrapped at this time. 3. History hypertension. 4. History of situation depression. 5. History of primary hypothyroidism. 6. History of pacemaker for bradycardia. We will put her back on her medications, right now blood pressure looks good. Hemodynamics look to be stable. cc: Al Acosta MD
--- NOTE | 2019-04-10 19:10 | Diag Imaging Result Doc PS360 ---
EXAM: CT ABD/PELVIS W/IV CONT ONLY 04/10/2019 HISTORY: abd pain TECHNIQUE: This exam was performed using automated exposure control, adjustment of mA or kV according to patient size, and/or use of iterative reconstruction technique. COMMENT: There are no previous studies available for comparison. There are patchy alveolar opacities in both lung bases with pleural effusions bilaterally. There is some anasarca. Both kidneys are somewhat lobulated particularly the right. There is also a number of cortical cysts on the right. The abdominal aorta is not distended. There is heavy calcification in the ostia of the renal arteries bilaterally. The celiac artery is apparently patent. 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 There is some reconstitution by collaterals distally. There is no evidence of abdominal aortic aneurysm. The inferior mesenteric artery is patent. The liver is unremarkable in appearance. The spleen is not enlarged. The adrenal glands are not enlarged. The pancreas is grossly normal in appearance. There is a fair amount of motion artifact particularly on the portal venous phase. There is no evidence of mucosal thickening in the small bowel or colon. There is no evidence of significant adenopathy. There are no apparent gallstones. Pelvis: There is an apparent left femoral venous line with its tip in the proximal external iliac vein on the right. There is no significant free fluid. There is diverticulosis coli without evidence of acute diverticulitis. The appendix is normal in appearance. There is some fluid in the rectum. There is bilateral spondylolysis at L5 and degenerative disc disease and scoliosis of the lumbar spine with convexity to the left. IMPRESSION: Bilateral pleural effusions and pulmonary edema and/or pneumonia with mild anasarca. 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 The possibility of mild enterocolitis cannot be excluded. Electronically signed by Cyril Alvarez 04/10/2019 7:08 PM
[2019-04-10] MEDS: MORPHINE IV PRN ×2 (20:14→23:43)
[2019-04-11] MEDS: SODIUM CHLORIDE 0.9% INJ SCH (04:37)
[2019-04-11] MEDS: PROTONIX IV SCH ×2 (04:37→15:31)
[2019-04-11 06:43] LABS: AGAP 6; ALB/GLOB RATIO 0.9; ALBUMIN 2.9 g/dL (3.5-5.0); ALKALINE PHOSPHATASE 98 U/L (32-104); BUN 19 mg/dL (8-22); CALCIUM 8.3 mg/dL (8.8-10.2); CHLORIDE 105 mmol/L (98-107); COSMO 285; CREATININE 0.8 mg/dL (0.5-0.9); ESTIMATED GFR > 60; GLUCOSE 100 mg/dL (70-104); GOT 25 U/L (10-30); GPT 37 U/L (10-36); MAGNESIUM 1.7 mg/dL (1.5-2.7); POTASSIUM 3.8 mmol/L (3.5-5.1); SODIUM 142 mmol/L (136-145); TCO2 31 mmol/L (25-35); TOTAL BILIRUBIN 1.02 mg/dL (0.20-1.00); TOTAL PROTEIN 6.2 g/dL (6.3-8.3)
--- NOTE | 2019-04-11 06:46 | Diag Imaging Result Doc PS360 ---
CHEST-PORTABLE - 04/11/2019 INDICATION: FU COMPARISON: 04/10/2019 FINDINGS: Stable pacemaker. There is worsening central interstitial infiltrate compatible with pulmonary edema. Heart size is normal. No pneumothorax or significant pleural effusion. IMPRESSION: Worsening central infiltrates most compatible with pulmonary edema. Electronically signed by Cristiano Grant 04/11/2019 6:44 AM
[2019-04-11 06:59] LABS: BASO# 0.03 X1000 (0.0-0.2); BASO% 0.3 % (0.0-0.8); EOS# 0.17 X1000 (0.0-0.7); EOS% 1.9 % (0.0-10.0); HEMATOCRIT 25.1 % (37.0-47.0); HEMOGLOBIN 8.4 g/dL (12.0-16.0); IMM GRAN# 0.02 X1000 (0.0-0.04); IMM GRAN% 0.2 % (0.0-0.5); LYMPH# 1.56 X1000 (1.2-3.4); LYMPH% 17.1 % (20.5-51.1); MCH 30.8 PG (27-31); MCHC 33.5 g/dL (33-37); MCV 91.9 FL (81-99); MONO# 1.21 X1000 (0.11-0.59); MONO% 13.3 % (1.7-9.3); MPV 10.8 FL (7.4-10.4); NEUT# 6.11 X1000 (1.4-6.5); NEUT% 67.2 % (42.2-75.2); PLT 118 X1000 (130-400); RBC 2.73 XMIL (4.2-5.4); RDW 14.8 % (11.5-14.5)
--- NOTE | 2019-04-11 08:53 | PROGRESS NOTE ---
DATE: 04/11/2019 SUBJECTIVE: This patient is lying comfortably in bed. She is not complaining of pain at this moment. She has a left leg splint from previous surgery. She is not following commands or answering my questions. She is opening her eyes spontaneously and occasionally she says yes or no when we try to talk to her. It looks like she has a baseline dementia, but I am not quite sure how severe is this. OBJECTIVE: Vital Signs: Temperature 97.3 degrees, pulse 60, respiratory rate 18, blood pressure 153/74, oxygen saturation 100% on 2 L of nasal cannula. HEENT: Head normocephalic, no trauma. PERRLA. Neck: Supple. No JVD. No masses. Central trachea. Chest: Clear to auscultation. No wheezing. No rales. Abdomen: Soft, nontender, nondistended. No hepatosplenomegaly. Extremities: No edema, no clubbing, no cyanosis. She has a left leg splint. Neurological examination: The patient is awake. She is alert. She is not following commands, but occasionally she says yes or no when we try to talk to her. She moves all 4 extremities spontaneously, but not that much, She has a history of dementia. LABORATORY: WBC 9.1, hemoglobin 8.4, hematocrit 25.1, platelets 118. Sodium 142, potassium 3.8, chloride 105, bicarbonate 31. BUN 19, creatinine 0.8, glucose 100, calcium 8.3. AST 25, ALT 37, alkaline phosphatase 98, albumin 2.9. TSH 6.3. ASSESSMENT AND PLAN: 1. Gastrointestinal bleed: Hemoglobin improved after 2 units of packed red blood cells, at this moment is 8.4. She is scheduled for an esophagogastroduodenoscopy. She is on nothing by mouth. She seems to be stable. 2. Left bimalleolar ankle fracture, status post repair. She has a splint. She is not complaining of any pain at this moment. I do not think she has any neurovascular lesion. 3. History of hypertension. We will monitor. 4. History of situational depression, aware. We will likely restart most of her medications after the esophagogastroduodenoscopy. 5. History of hypothyroidism. Aware. Continue with levothyroxine. Thyroid stimulating hormone is slightly elevated, but at this point we will just monitor. 6. History of pacemaker for bradycardia. Right now she is hemodynamically stable. We will monitor. 7. History of dementia. Aware. I am not quite sure how severe this is, but she is not following commands or talking to me at this moment. CRITICAL CARE TIME: 40 minutes. cc: Prabhu Romero MD
--- NOTE | 2019-04-11 10:41 | ENDOSCOPY OPERATIVE NOTE ---
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 PROCEDURE PERFORMED: EGD w/ biopsy MEDICATIONS: Per Anesthesia TOPICAL ANESTHETIC: CONSENT: The patient understands the risks and benefits of the procedure and understands that these r isks include, but are not limited to: sedation, allergic reaction, infection, perforation and/or bleeding. Alternative means of evaluation and treatment include, among others: physical exam, x-rays, and/or surgical intervention. The patient elects to proceed with this endoscopic procedure. HISORY AND PHYSICAL: 04/11/2019 function. Hand hygiene and appropriate measures for infection prevention was taken. After the risks, benefits and alternatives of the procedure were thoroughly explained, Informed consent was verified, confirmed and timeout was successfully executed by the treatment team. The patient was anesthetized with topical anesthesia and the [id number]-[id number] ([id number]) endoscope was introduced through the mouth and advanced to the second portion of the duoden um. Retroflexion was performed in the stomach and revealed a hiatal hernia. The gastroscope was then slowly withdrawn and removed. ESOPHAGUS: A 3 cm hiatal hernia was noted. STOMACH: Moderate gastritis (inflammation) was found in the entire examined stomach. Multiple biopsi es were performed using cold forceps. Sample sent for histology. A single non-bleeding, clean-based and deep ulcer m easuring x 10mm in size was found on the anterior wall of the gastric antrum. DUODENUM: The duodenal mucosa showed no abnormalities in the duodenal bulb and 2nd part duodenum. SPECIMENS REMOVED: Yes ADVERSE EVENTS: There were no complications. POSTOPERATIVE DIAGNOSIS: 1. 3 cm hiatal hernia 2. Gastritis (inflammation) was found in the entire examined stomach; multiple biopsies were perform ed 3. Single ulcer measuring x 10mm in size was found on the anterior wall of the gastric antrum 4. The duodenal mucosa showed no abnormalities in the duodenal bulb and 2nd part duodenum RECOMMENDATIONS: 1. Await biopsy results 2. Transition PPI IV to PO BID 3. Avoid NSAIDs 4. Advance diet as tolerated 5. Patient ok to be discharged from GI perspective. Will sign off 6. Follow-up in GI clinic in 4-6 weeks. Will need repeat EGD in 2-3 months to check for ulcer heali ng REPEAT EXAM: You Spangler MD eSigned: You Spangler MD 04/11/2019 10:41 AM cc: PATIENT NAME: Kristie Grossman MR#: [id number]
[2019-04-11] MEDS: SYNTHROID PO SCH (11:49)
[2019-04-11] MEDS: CELEXA PO SCH (11:49)
[2019-04-11] MEDS: KLONOPIN PO SCH (11:49)
[2019-04-11] MEDS: BENTYL PO SCH ×4 (11:49→20:59)
[2019-04-11] MEDS: MORPHINE IV PRN ×2 (12:48→20:56)
--- NOTE | 2019-04-11 13:45 | GASTROENTEROLOGY CONSULTATION ---
DATE: 04/11/2019 REASON FOR CONSULTATION: Anemia, melena. HISTORY OF PRESENT ILLNESS: Ms. Kristie Grossman is a 79-year-old woman with a past medical history of hypertension, hyperlipidemia, status post pacemaker, chronic back pain, and GERD who presented on 04/10/2019 with an incidental finding of anemia on routine labs with a hemoglobin of 5.9. The patient recently was hospitalized for a left bimalleolar ankle fracture requiring left open reduction and internal fixation as well as left primary deltoid repair. Her hospitalization was uncomplicated. She was discharged to rehab on antibiotics for bilateral pneumonia. She was also treated for a urinary tract infection. She initially presented with altered mental status during the hospitalization. Over the course of the last week, the patient reports having black stools. The patient is a poor historian. Most of the history is obtained from the chart and the patient's at bedside. She does complain of some epigastric pain and nausea. She is on aspirin 81 mg daily and takes Advil as needed for headaches irregularly. She has not had an EGD in the past. She had a colonoscopy over 10 years ago. She cannot recall where and who performed the procedure. No diarrhea, significant constipation, hematochezia, chest pain, lightheadedness, dizziness, fevers, vomiting, hematemesis, shortness of breath, or chest pain. REVIEW OF SYSTEMS: As per HPI. The says patient has become increasingly confused since her hospitalization on 03/21/2019. Previously, she had a normal mental status. PAST MEDICAL HISTORY: As per HPI. Other history includes anxiety, situational depression, hypothyroidism, history of bradycardia, status post pacemaker. PAST SURGICAL HISTORY: Pacemaker, tubal ligation, bilateral knee replacements, left ankle fracture repair. No prior abdominal surgeries. SOCIAL HISTORY: No smoking, alcohol, or drug use. FAMILY HISTORY: No family history of GI malignancies. ALLERGIES: No known drug allergies. MEDICATIONS: On 03/30/2019, the patient was discharged on oral morphine, Augmentin, MiraLAX, tramadol, linezolid, pravastatin, levothyroxine, citalopram, dicyclomine, Zofran, clonazepam, atenolol, and aspirin. PHYSICAL EXAMINATION: Vital Signs: Temperature 97.3 degrees, heart rate 61, respiratory rate 15, blood pressure 148/67, O2 saturation 100% on 2 L nasal cannula. General: The patient is sleepy but arousable. Confused. Answers intermittent questions appropriately. Follows commands. No acute distress. HEENT: Sclerae are anicteric. Moist mucous membranes. Extraocular motor intact. Neck: Supple. No JVD or lymphadenopathy. Cardiac: Regular rate and rhythm. No murmurs. Lungs: Clear to auscultation bilaterally. Abdomen: Obese, soft. Mild tenderness in the epigastric area. No rebound or guarding. No ascites. Bowel sounds are present. Extremities: No clubbing, cyanosis, or edema. The left ankle is wrapped with an Lei dressing. Neurologic: The patient follows commands, moving extremities symmetrically. LABS: White count of 9.1, hemoglobin 8.1 from 5.9 after receiving 3 units of packed red blood cells, platelets of 118,000. INR of 0.73 on 03/29/2019. Sodium 142, potassium 3.8, chloride 105, bicarb 31, BUN of 19, creatinine of 0.8, glucose of 100. Total bilirubin of 1.0, AST of 25, ALT 37, alkaline phosphatase 98, total protein of 6.2, albumin 2.9. TSH is 6.32. UA shows trace proteinuria. The patient had a prior hepatitis panel that was negative. CT of the abdomen and pelvis on 04/10/2019 shows bilateral pleural effusions and pulmonary edema and/or pneumonia with mild anasarca. Also sclerotic changes as described including inclusion of the superior mesenteric artery proximally. Possibility of mild enterocolitis cannot be excluded. Abdominal ultrasound on 03/29/2019 shows no acute disease. The liver was unremarkable. Common bile duct measures 4 mm. Chest x-ray on 04/11/2019 shows worsening central infiltrates, most compatible with pulmonary edema. ASSESSMENT AND PLAN: Ms. Kristie Grossman is a 79-year-old woman with a past medical history of gastroesophageal reflux disease, status post pacemaker, recent admission for altered mental status, urinary tract infection, pneumonia, and left ankle fracture requiring repair, who presents from a [facility] with acute on chronic anemia with a hemoglobin of 5.9. The patient was discharged on 03/30/2019 with a hemoglobin of 8.5. In November of this year, her hemoglobin was 10.3. Her vital signs are stable. She is actually hypertensive. Respiratory status is fine. She has been transfused with 3 units of packed red blood cells with appropriate increase in hemoglobin. She does have thrombocytopenia from unclear etiology. This is new from her prior admission, unlikely related to underlying liver disease. Her ultrasound recently did not show any evidence of cirrhosis, ascites, or portal hypertension. The patient is currently on a proton pump inhibitor intravenously twice a day. We are holding any blood thinners. Trending hemoglobin and hematocrit daily. Transfuse as needed for hemoglobin less than 7. She is NPO l for a planned diagnostic esophagogastroduodenoscopy today. Other findings include recent abnormal liver function tests notable and transaminases in the 100s which is likely related to either shocked liver versus rhabdomyolysis in the setting of a deltoid injury. Liver function tests have improved significantly since discharge. # Anemia # Melena # Thrombocytopenia # Abnormal LFTs # Confusion # HTN Thank you for this consult. We will follow with you. Please call with any questions or concerns. DORI
[2019-04-11] MEDS: PRAVACHOL PO SCH (20:59)
[2019-04-12] MEDS: MORPHINE IV PRN ×3 (00:59→21:27)
[2019-04-12] MEDS: PROTONIX IV SCH (03:50)
[2019-04-12] MEDS: SODIUM CHLORIDE 0.9% INJ SCH (03:51)
[2019-04-12] MEDS: SYNTHROID PO SCH (06:24)
[2019-04-12] MEDS ORDERED: 1/2 NS 1,000 ML IV SCH (07:45)
--- NOTE | 2019-04-12 08:00 | PROGRESS NOTE ---
DATE: 04/12/2019 SUBJECTIVE: Patient is laying comfortably in bed. She is not complaining of pain at this moment. She has left leg splint from prior surgery. She is following commands. She is answering some of my questions. She is oriented x2. She is not oriented to time. I believe she has a history of dementia. She is status post endoscopy. OBJECTIVE: Vital Signs: Temperature 98.3 degrees, pulse 61, respiratory rate 16, blood pressure 154/57, oxygen saturation 100% on 2 L of nasal cannula. HEENT: Head normocephalic, no trauma. PERRLA. Neck: Supple. No JVD. No masses. Central trachea. Chest: Clear to auscultation. No wheezing. No rales. Abdomen: Soft, nontender, nondistended. No hepatosplenomegaly. Extremities: No edema, no clubbing, no cyanosis. She has a left leg splint. Neurological examination: This patient is awake. She is alert, she is following commands today for me. She is oriented x2. She is not oriented to time. LABORATORY: Pending lab work today. ASSESSMENT AND PLAN: Gastrointestinal bleed, status post esophagogastroduodenoscopy that showed gastritis. Multiple biopsies were performed. Single ulcer measuring around 10 mm in size on the anterior wall of the gastric antrum. No signs of duodenal problems. It has been recommended to continue with proton pump inhibitors twice a day, stop nonsteroidal anti-inflammatory drugs completely. I will advance the diet and follow up as an outpatient 4 to 6 weeks. So, I will wait for the lab work today to send this patient home. Overall, this patient is better. Probably this patient can go back home, pending laboratory at this moment. I will advance the diet. cc: Prabhu Romero MD
[2019-04-12] MEDS: CELEXA PO SCH (08:27)
[2019-04-12] MEDS: BENTYL PO SCH ×4 (08:27→21:26)
[2019-04-12] MEDS: PROTONIX PO SCH ×2 (08:27→18:04)
[2019-04-12] MEDS: KLONOPIN PO SCH (08:27)
--- NOTE | 2019-04-12 10:16 | Diag Imaging Result Doc PS360 ---
EXAM: CHEST-PORTABLE HISTORY: SOB/ increased need for oxygen TECHNIQUE: Chest single view COMPARISON: 04/11/2019 FINDINGS: There are bilateral infiltrates similar to the prior exam. The lungs are well expanded. Mild cardiac prominence. There is a left-sided pacemaker. Moderate scoliosis. IMPRESSION: No interval improvement. Electronically signed by Mason Fuller 04/12/2019 10:13 AM
[2019-04-12] MEDS ORDERED: LASIX IV ONE (10:46)
[2019-04-12 11:19] LABS: AGAP 7; BUN 15 mg/dL (8-22); CALCIUM 8.3 mg/dL (8.8-10.2); CHLORIDE 101 mmol/L (98-107); COSMO 274; CREATININE 0.8 mg/dL (0.5-0.9); ESTIMATED GFR > 60; GLUCOSE 90 mg/dL (70-104); POTASSIUM 3.6 mmol/L (3.5-5.1); SODIUM 137 mmol/L (136-145); TCO2 29 mmol/L (25-35)
--- NOTE | 2019-04-12 11:27 | PROGRESS NOTE ---
DATE: 04/12/2019 SUBJECTIVE: This patient is lying comfortably in bed. She is deciding when she talks, and also when we remove the oxygen. As per the , she is not on home O2. Her initial CT of the abdomen showed bilateral pleural effusion and pulmonary edema and/or pneumonia with mild anasarca. X-ray done the same day on 04/10/2019 showed also some pulmonary vascular congestion and haziness on the left side, which is probably related to fluid. Chest x-ray has been done today and showed no interval improvement. There are bilateral infiltrate similar to prior exam. The lungs are well expanded. Mild cardiac prominence and there is a left-sided pacemaker. I will give her a dose of Lasix right now, and I will monitor this patient closely., Again as per the she is not on oxygen at home or having any problem with oxygen saturation. ASSESSMENT AND PLAN: 1. Gastrointestinal bleed status post endoscopy. Like I mentioned before in my previous progress note, this patient has gastritis and also an ulcer. We will continue to monitor. The ulcer is located in the anterior wall of the gastric antrum. We will continue with the same management. 2. Hypoxemic respiratory failure. Aware. She does have some pulmonary edema. I just repeated the x-ray. She will receive a dose of Lasix, and we will monitor the urine output and kidney function. 3. History of hypertension. We will monitor. 4. History of situational depression. Aware. 5. Left bimalleolar ankle fracture status post repair a few weeks ago. Aware. 6. History of pacemaker for bradycardia. Continue with same management. 7. History of dementia. Aware. It looks mild today. We will monitor. cc: Prabhu Romero MD
[2019-04-12 13:15] LABS: HEMATOCRIT 24.9 % (37.0-47.0); HEMOGLOBIN 8.3 g/dL (12.0-16.0); MCV 93.6 FL (81-99); RBC 2.66 XMIL (4.2-5.4); WBC 8.78 X1000 (4.8-10.8)
[2019-04-12 13:16] LABS: BASO# 0.02 X1000 (0.0-0.2); BASO% 0.2 % (0.0-0.8); EOS# 0.29 X1000 (0.0-0.7); EOS% 3.3 % (0.0-10.0); IMM GRAN# 0.02 X1000 (0.0-0.04); IMM GRAN% 0.2 % (0.0-0.5); LYMPH% 23.9 % (20.5-51.1); MCH 31.2 PG (27-31); MCHC 33.3 g/dL (33-37); MONO# 1.19 X1000 (0.11-0.59); MONO% 13.6 % (1.7-9.3); NEUT# 5.16 X1000 (1.4-6.5); NEUT% 58.8 % (42.2-75.2); PLT 133 X1000 (130-400); RDW 14.9 % (11.5-14.5)
[2019-04-12] MEDS: ZOFRAN IV PRN ×2 (18:06→21:27)
[2019-04-12] MEDS ORDERED: LANOXIN IV ONE (19:23)
[2019-04-12] MEDS ORDERED: LOPRESSOR IV ONE (19:23)
[2019-04-12 19:48] LABS: HEMATOCRIT 26.2 % (37.0-47.0); HEMOGLOBIN 8.7 g/dL (12.0-16.0)
[2019-04-12] MEDS: PRAVACHOL PO SCH (21:26)
[2019-04-13] MEDS ORDERED: CARDIZEM 125 MG/D5W 125 MG/125 ML IVPB IV SCH (01:04)
[2019-04-13] MEDS ORDERED: CARDIZEM IV ONE (01:04)
[2019-04-13] MEDS: MORPHINE IV PRN ×5 (01:12→22:59)
[2019-04-13 05:59] LABS: BASO# 0.02 X1000 (0.0-0.2); BASO% 0.2 % (0.0-0.8); EOS# 0.24 X1000 (0.0-0.7); EOS% 1.9 % (0.0-10.0); HEMOGLOBIN 8.7 g/dL (12.0-16.0); IMM GRAN# 0.03 X1000 (0.0-0.04); IMM GRAN% 0.2 % (0.0-0.5); LYMPH# 1.05 X1000 (1.2-3.4); LYMPH% 8.1 % (20.5-51.1); MCH 31.1 PG (27-31); MCHC 33.5 g/dL (33-37); MCV 92.9 FL (81-99); MONO# 2.04 X1000 (0.11-0.59); MONO% 15.7 % (1.7-9.3); MPV 10.2 FL (7.4-10.4); NEUT# 9.59 X1000 (1.4-6.5); NEUT% 73.9 % (42.2-75.2); PLT 164 X1000 (130-400); RDW 13.6 % (11.5-14.5); WBC 12.97 X1000 (4.8-10.8)
[2019-04-13 06:06] LABS: AGAP 9; BUN 8 mg/dL (8-22); CHLORIDE 94 mmol/L (98-107); COSMO 273; CREATININE 0.7 mg/dL (0.5-0.9); ESTIMATED GFR > 60; GLUCOSE 107 mg/dL (70-104); POTASSIUM 3.1 mmol/L (3.5-5.1); SODIUM 137 mmol/L (136-145); TCO2 34 mmol/L (25-35)
[2019-04-13] MEDS: SYNTHROID PO SCH (06:38)
[2019-04-13] MEDS: PROTONIX PO SCH ×2 (06:38→18:05)
[2019-04-13] MEDS ORDERED: KLOR-CON PO ONE (07:05)
--- NOTE | 2019-04-13 07:22 | Diag Imaging Result Doc PS360 ---
EXAM: CHEST-PORTABLE INDICATION: dyspnea TECHNIQUE: One view COMPARISON: 04/12/2019 FINDINGS: Bilateral predominantly interstitial infiltrates most compatible with edema are stable. No new consolidation is identified. Cardiac silhouette is stable. IMPRESSION: Stable chest. Electronically signed by Alton Joseph 04/13/2019 7:20 AM
--- NOTE | 2019-04-13 07:27 | EKG Report ---
Test Performed on : 04/12/2019 6:45:40 PM Test Reason : Tachycardia Blood Pressure : / mmHG Vent. Rate : 130 BPM Atrial Rate : 131 BPM P-R Int : 000 ms QRS Dur : 080 ms QT Int : 332 ms P-R-T Axes : 000 006 215 degrees QTc Int : 488 ms Atrial fibrillation. with rapid ventricular response. ST & T wave abnormality, consider inferior ischemia Abnormal ECG When compared with ECG of 21-MAR-2019 16:16, (Unconfirmed) Atrial fibrillation. has replaced Sinus rhythm. Vent. rate has increased BY [address] now depressed in Inferior leads ST now depressed in Anterolateral leads T wave inversion now evident in Inferior leads T wave inversion now evident in Lateral leads Confirmed by Dave ISSA, Al Sutton ([id number]) on 04/13/2019 5:09:29 PM
[2019-04-13] MEDS ORDERED: LASIX IV ONE (07:30)
[2019-04-13] MEDS ORDERED: NS NEB INH SCH (07:30)
[2019-04-13] MEDS: XOPENEX NEB INH SCH ×5 (08:13→23:15)
[2019-04-13] MEDS: ATROVENT NEB INH SCH ×5 (08:13→23:15)
--- NOTE | 2019-04-13 08:18 | PROGRESS NOTE ---
DATE: 04/13/2019 SUBJECTIVE: The patient is lying comfortably in bed. She has been coughing a little bit more today. Her oxygen saturation drops without oxygen. As per the . She is not on home O2. Recently, she was discharged on 03/30/2019 due to ankle fracture, pneumonia and urinary tract infection. She was discharged with Augmentin and Zyvox. She completed apparently 10 days of treatment. She has some crackles bilaterally, and she is wheezing a little bit. During the night, she had an episode of atrial fibrillation RVR. She was placed on diltiazem drip, and placed back in the ICU. OBJECTIVE: Vital Signs: Temperature 98.6 degrees, pulse 75, respiratory rate 20, blood pressure 148/65, and oxygen saturation 99 percent on 2 L of nasal cannula. HEENT: Head normocephalic. No trauma. PERRLA. Neck: Supple. No JVD. No masses. Central trachea. Chest: Bilateral crackles mostly at the level of the mid and lower lungs. There is some expiratory wheezing scattered bilaterally as well, rhonchi at the bases. Abdomen: Soft, nontender, and nondistended. There is some discomfort at the level of the periumbilical area. Extremities: No edema. No clubbing. No cyanosis. Neurological: The patient is alert. She is oriented x2. She moves all 4 extremities, but she has generalized weakness, and she does have a splint on the left leg. LABORATORY: WBC 12.9, hemoglobin 8.7, hematocrit 26, and platelets 164,000. Sodium 137, potassium 3.1, chloride 94, bicarbonate 34, BUN 8, creatinine 0.7 glucose 107, and calcium 8. ASSESSMENT AND PLAN: 1. Gastrointestinal bleed status post EGD that showed gastritis, multiple biopsies were performed. Single ulcer measuring around 10 mm size on the anterior wall of the gastric antrum. No signs of duodenal problems. He has been recommended to continue proton pump inhibitors twice a day, stop completely the NSAIDs. The diet has been advanced, and it looks like she is tolerating that. 2. Hypoxemic respiratory failure. She does have pulmonary edema, and today she is wheezing a little bit. She will receive a dose of Lasix. I will put her on breathing treatment. She received a few days ago a complete treatment with Augmentin and Zyvox. I will put her on azithromycin today. 3. Atrial fibrillation with RVR. She has been placed on diltiazem drip during the night. Today, early in the morning, she converted back to sinus rhythm. I will try to stop the diltiazem drip, but I will put her on diltiazem p.o. 30 mg q.6 hours to see how she does. Cardiology Department has been consulted. No anticoagulation due to her recent low hemoglobin and GI bleed. 4. History of hypertension. We will monitor. Stable. 5. History of situational depression. Aware. 6. Left bimalleolar ankle fracture, status post repair a few weeks ago. Aware. 7. Possible bibasilar pneumonia. She does have some rhonchi scattered. Leukocyte count a little bit elevated compared with yesterday and she has been coughing more. I will put her on azithromycin. She already received a complete course of antibiotics a few days ago with Augmentin and Zyvox. We will monitor. She will receive a dose of Lasix today again due to pulmonary edema, and will we will monitor. 8. History of dementia. Aware. It looks mild for me, but we will monitor. CRITICAL CARE TIME: 35 minutes. cc: Prabhu Romero MD
[2019-04-13] MEDS: BENTYL PO SCH ×5 (08:24→20:28)
[2019-04-13] MEDS: KLONOPIN PO SCH (08:24)
[2019-04-13] MEDS: CARDIZEM PO SCH ×3 (08:24→13:54)
[2019-04-13] MEDS: CELEXA PO SCH (08:24)
[2019-04-13] MEDS: ZITHROMAX 500 MG/NS 500 MG/250 ML IVPB IV SCH (09:54)
--- NOTE | 2019-04-13 13:16 | EKG Report ---
Test Performed on : 04/13/2019 12:25:38 PM Test Reason : afib Blood Pressure : / mmHG Vent. Rate : 085 BPM Atrial Rate : 085 BPM P-R Int : 376 ms QRS Dur : 086 ms QT Int : 428 ms P-R-T Axes : 022 031 261 degrees QTc Int : 509 ms Sinus rhythm. with 1st degree AV block. ST & T wave abnormality, consider inferior ischemia Prolonged QT Abnormal ECG When compared with ECG of 12-APR-2019 18:45, (Unconfirmed) Sinus rhythm. has replaced Atrial fibrillation. Vent. rate has decreased BY 45 BPM Confirmed by Dave ISSA, Al Sutton ([id number]) on 04/13/2019 5:10:10 PM
--- NOTE | 2019-04-13 14:38 | GASTROENTEROLOGY PROGRESS NOTE ---
DATE: 04/13/2019 SUBJECTIVE: The patient is resting in bed. Her family is at the bedside. The patient denies any active bleeding. She is eating better. She is having liquid brown stools. OBJECTIVE: Vital Signs: Temperature of 98.9, pulse rate of 81, respiratory rate of 22, blood pressure of 150/69, saturating 100% on nasal cannula. Body weight of 166 pounds and 14.4 ounces. BMI 24 kg/m2. General Appearance: Moderately built, moderately nourished, lying in bed, in no acute distress. HEENT: Positive pallor. No icterus. Neck: Supple. Abdomen: Soft, nondistended. No guarding. Extremities: No cyanosis, clubbing. Also, she has a splint on her left leg from a recent fracture. Neurological: She was awake, alert. Answering questions. LABS: Hemoglobin and hematocrit are 8.7 and 26, white count of 12.97, platelet count of 164,000. Sodium 139, potassium 3.1, chloride of 94, bicarb 34, anion gap 9, BUN of 8, creatinine 0.7, glucose of 107, calcium is 8. Her AST is 25, ALT 37, alkaline phosphatase 98, total protein 6.2, albumin of 2.9, total bilirubin is 1.02. TSH of 6.32. Stool for occult blood was positive. 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 The possibility of mild enterocolitis cannot be excluded. She had an EGD done on 04/11/[address] Spangler also which showed a 3 cm hiatal hernia, gastritis, a single ulcer in the anterior wall of the gastric antrum, normal duodenal bulb and second portion of the duodenum. IMPRESSION AND PLAN: 1. Gastrointestinal bleed, status post esophagogastroduodenoscopy showing gastritis and gastric ulcer, nonbleeding. 2. Hypoxic respiratory failure. 3. 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 4. Atrial fibrillation with rapid ventricular response. 5. Hypertension. 6. Depression. 7. Left bimalleolar ankle fracture. 8. Possible bibasilar pneumonia. 9. History of dementia. RECOMMENDATIONS: 1. We will call a surgery consult for SMA occlusion possible. Dr. Degroot has been consulted. We will continue PPIs b.i.d. We will continue to watch hemoglobin and hematocrit, and transfuse as needed. 2. Continue to avoid NSAIDs. 3. We will sign off at this time. Please call with any further questions. cc: MD Prabhu Stallings MD Dr. Hall
--- NOTE | 2019-04-13 15:04 | CARDIOLOGY CONSULTATION ---
DATE: 04/13/2019 IMPRESSION: 1. Transient atrial fibrillation with rapid ventricular rate. Patient has now converted back to sinus rhythm. 2. Acute hypoxemic respiratory failure. Patient being managed for pulmonary edema. However, aspiration is a possibility. 3. Hypertension. 4. Sinus node dysfunction. Patient is status post previous dual-chamber pacemaker. She has right ventricular lead dysfunction, and pacemaker at last interrogation was converted to AAIR mode. 5. Patient admitted this admission with severe anemia and suspected gastrointestinal blood loss. She has been transfused 2 units packed red cells. Gastroenterology evaluation has disclosed gastric ulcers. 6. Status post open reduction, internal fixation of left bimalleolar ankle fracture fairly recently, as well as left primary deltoid repair. Patient injured left ankle in a fall. 7. Previous aspiration pneumonitis. RECOMMENDATIONS: 1. Discontinue intravenous diltiazem, given the patient converted back to sinus rhythm and manifests significant first-degree AV block. I would also discontinue oral Cardizem for now. 2. Echocardiography. 3. Swallowing study. 4. Patient has diuresed significantly. In fact, her intake and output balance is significantly negative. If chest x-ray fails to improve or show some trend toward improvement, would reconsider the possibility of aspiration. HISTORY: This 79-year-old white female with past history of sinus node dysfunction, previous dual- chamber pacemaker ultimately programmed to AAIR mode due to ventricular lead dysfunction, hyperlipidemia, chronic back disorder, and fairly recent left bimalleolar ankle fracture repair with open reduction and internal fixation following a recent fall was hospitalized from rehabilitation/assisted because of severe anemia. She was suspected of having GI blood loss. She also had recent bilateral pneumonia as well as urinary tract infection and had been on antibiotics. On presentation, she has had some episodic altered mental status. She has been transfused 2 units of packed red cells. Upper GI endoscopy yesterday demonstrated several small gastric ulcers. Yesterday evening, she developed hypoxemic respiratory failure. She also went into atrial fibrillation with rapid ventricular rate. She has been started on intravenous Cardizem and moved to intensive care unit. She is felt to have pulmonary edema and has received IV Lasix with vigorous diuresis. This morning, she converted back to sinus rhythm with long first- degree AV block. IV diltiazem was discontinued. When I see her, she is somewhat drowsy and not very interactive, having just received some narcotic analgesics. PAST MEDICAL HISTORY: 1. Hypertension. 2. Sinus node dysfunction. Patient is status post dual-chamber pacemaker which ultimately was programmed to AAIR mode because of ventricular lead dysfunction. 3. Anxiety/depression. 4. Hypothyroidism. 5. Recent left ankle fracture sustained in fall. There was no noted loss of consciousness. 6. Recent aspiration pneumonitis. PAST SURGICAL HISTORY: Also includes tubal ligation, bilateral knee replacements, left ankle fracture repair. ALLERGIES: She has no known drug allergies. HOME MEDICATIONS PRIOR TO ADMISSION: As listed. SOCIAL HISTORY: She had been living with family at home up until the time of her ankle fracture, after which she was in a assisted facility for rehabilitation. She does not smoke or use alcohol. FAMILY HISTORY: Negative for premature coronary disease. REVIEW OF SYSTEMS: Not reliably obtainable, given patient's drowsiness and some confusion. PHYSICAL EXAMINATION: General: This is an elderly white female in no acute distress with supplemental oxygen per nasal cannula. Vital signs: Blood pressure 117/73, heart rate 83 and regular, oxygen saturation 100% on nasal cannula oxygen. HEENT: Extraocular muscles appear intact. Mucous membranes appear somewhat dry. Neck: Supple. Neck veins are flat. There are no carotid bruits. Chest: Auscultation of the chest reveals a prominent scattered rhonchi. Cardiac: Exam reveals a regular rate and rhythm without appreciable murmur, rub, or gallop. Abdomen: Soft. Bowel sounds are normal. Extremities: Without edema. LABORATORY DATA: Includes a white blood cell count 12.97, hematocrit 26.0, hemoglobin 8.7, platelet count 164,000. Sodium 137, potassium 3.1, chloride 94, carbon dioxide 34, BUN 8, creatinine 0.7, glucose 107. cc: Bethel Franklin MD
--- NOTE | 2019-04-13 18:09 | ECHO REPORT ---
ORDER DATE: 04/13/2019 INDICATION: A 79-year-old female with atrial fibrillation with rapid response. M-MODE MEASUREMENTS: Left ventricle end diastole: 4.1. Left ventricle end systole: 2.2. Posterior wall: 0.9. Interventricular septum: 1.2. Left atrium: 2.2. Aortic diameter: 2.3. SUMMARY OF 2-DIMENSIONAL IMAGIN. Left ventricular function is hyperdynamic with ejection fraction of 70% to 75%. No wall motion abnormality noted. 2. The mitral annulus is densely calcified. The opening of the mitral valve appears to be unrestricted. 3. Pulsed wave Doppler of mitral inflow shows "normal" E/A ratio. The ratio is 1.9. 4. Tissue Doppler of septal and lateral mitral annulus averages 9 cm. 5. There is no diastolic dysfunction. 6. Color flow mapping of the mitral valve indicates a mild degree of regurgitation. 7. The tricuspid valve shows a moderately severe degree of regurgitation. 8. The inferior vena cava is at the upper limits of normal. 9. Pulmonary pressure is estimated at 79 mmHg. 10.There is sclerosis of the aortic valve without definite stenosis. Color flow mapping unremarkable. There is trace aortic regurgitation. 11.The pulmonic valve is normal. Color flow mapping unremarkable. 12.There is no pericardial effusion, no mass, and no thrombus. 13.The right-sided chambers appear to be unremarkable. 14.The left atrium is probably at the upper limits of normal. Clinical correlation recommended. cc: MD Angel Mooney CRNP
[2019-04-13] MEDS ORDERED: KLOR-CON PO SCH (20:00)
[2019-04-13] MEDS: PRAVACHOL PO SCH (20:29)
[2019-04-14] MEDS: CORDARONE PO SCH ×4 (01:07→20:24)
[2019-04-14] MEDS: ATROVENT NEB INH SCH ×6 (03:13→23:26)
[2019-04-14] MEDS: XOPENEX NEB INH SCH ×6 (03:13→23:27)
[2019-04-14] MEDS: MORPHINE IV PRN ×3 (04:07→16:00)
[2019-04-14] MEDS ORDERED: LASIX IV ONE ×2 (04:40→15:28)
[2019-04-14 05:06] LABS: HEMATOCRIT 25.5 % (37.0-47.0); HEMOGLOBIN 8.3 g/dL (12.0-16.0); MCH 30.5 PG (27-31); MCHC 32.5 g/dL (33-37); MCV 93.8 FL (81-99); MPV 10.3 FL (7.4-10.4); RBC 2.72 XMIL (4.2-5.4); RDW 13.6 % (11.5-14.5); WBC 9.36 X1000 (4.8-10.8)
[2019-04-14 05:25] LABS: AGAP 10; ALB/GLOB RATIO 0.8; ALBUMIN 2.9 g/dL (3.5-5.0); ALKALINE PHOSPHATASE 108 U/L (32-104); BUN 8 mg/dL (8-22); CALCIUM 9.1 mg/dL (8.8-10.2); CHLORIDE 95 mmol/L (98-107); COSMO 272; CREATININE 0.9 mg/dL (0.5-0.9); ESTIMATED GFR > 60; GLUCOSE 102 mg/dL (70-104); GOT 27 U/L (10-30); GPT 24 U/L (10-36); MAGNESIUM 1.3 mg/dL (1.5-2.7); PHOSPHORUS 1.6 mg/dL (2.7-4.5); POTASSIUM 3.9 mmol/L (3.5-5.1); SODIUM 137 mmol/L (136-145); TCO2 32 mmol/L (25-35); TOTAL BILIRUBIN 0.57 mg/dL (0.20-1.00); TOTAL PROTEIN 6.4 g/dL (6.3-8.3)
[2019-04-14] MEDS: PROTONIX PO SCH ×2 (06:15→18:24)
[2019-04-14] MEDS: SYNTHROID PO SCH (06:15)
[2019-04-14] MEDS: ZITHROMAX 500 MG/NS 500 MG/250 ML IVPB IV SCH (06:31)
[2019-04-14] MEDS ORDERED: MAGNESIUM SULFATE 2 GM/S.W.I. 2 GM/50 ML IVPB IV ONE (06:56)
[2019-04-14] MEDS ORDERED: POTASSIUM PHOSPHATE 30 MMOL in NS 250 ML IV ONE (06:57)
--- NOTE | 2019-04-14 07:05 | Diag Imaging Result Doc PS360 ---
EXAM: CHEST-PORTABLE 04/14/2019 HISTORY: decreased o2 sats TECHNIQUE: AP portable at 0425 COMMENT: There is interstitial and alveolar opacity bilaterally. This may be slightly improved since the previous study of 04/13/2019. IMPRESSION: Slightly improved pulmonary edema plus minus pneumonia. Electronically signed by Cyril Alvarez 04/14/2019 7:02 AM
--- NOTE | 2019-04-14 07:06 | EKG Report ---
Test Performed on : 04/13/2019 11:36:13 PM Test Reason : AFIB Blood Pressure : / mmHG Vent. Rate : 128 BPM Atrial Rate : 150 BPM P-R Int : 000 ms QRS Dur : 082 ms QT Int : 334 ms P-R-T Axes : 000 020 215 degrees QTc Int : 487 ms Atrial fibrillation. with rapid ventricular response. ST & T wave abnormality, consider inferolateral ischemia Abnormal ECG When compared with ECG of 13-APR-2019 12:25, Atrial fibrillation. has replaced Sinus rhythm. Vent. rate has increased BY 43 BPM Inverted T waves have replaced nonspecific T wave abnormality in Anterolateral leads Confirmed by Dave ISSA, Al Sutton ([id number]) on 04/14/2019 12:30:22 PM
--- NOTE | 2019-04-14 08:04 | PROGRESS NOTE ---
DATE: 04/14/2019 SUBJECTIVE: Patient is resting comfortably in bed. She is in atrial fibrillation with RVR. She is getting amiodarone. Cardiology Department is following this patient closely. She is not complaining of chest pain or shortness of breath. She did receive an extra dose of Lasix today in the morning around 4:00. Her x-ray showed slight improvement of the pulmonary edema plus or minus pneumonia. She has been coughing up some yellowish maybe green phlegm. I will stop the azithromycin, and I will put her on broad-spectrum antibiotics Zosyn. OBJECTIVE: Vital Signs: Temperature 98.3 degrees, pulse on the monitor of 119 at 05:00 in the morning, 134 pulse, respiratory rate 20, and blood pressure 125/76. Oxygen saturation at this moment 100% on 2 L of nasal cannula. HEENT: Head normocephalic. No trauma. PERRLA. Neck: Supple. No JVD. No masses. Central trachea. Lungs: Chest with some rhonchi and crackles at the bases scattered. Mild end-expiratory wheezing mostly at the bases as well. Abdomen: Soft, nontender, and nondistended. No hepatosplenomegaly. Extremities: No edema. No clubbing. No cyanosis. Neurological: This patient is sleepy, but arousable. She is oriented x2. She moves all 4 extremities. She is really sleepy because she spent the night awake. LABORATORY: WBC 9.3, hemoglobin 8.3, hematocrit 25.5, and platelets 189,000. Sodium 137, potassium 3.9, chloride 95, bicarbonate 32, BUN 8, creatinine 0.9, glucose 102, calcium 9.1, phosphorus 1.6, magnesium 1.3, AST 27, ALT 24, alkaline phosphatase 108, and albumin 2.9. ASSESSMENT AND PLAN: 1. GI bleed status post EGD that showed gastritis, multiple biopsies were performed. Single ulcer measuring around 10 mm size on the anterior wall of the gastric antrum. No signs of duodenal problems. She has been recommended to continue with proton pump inhibitors twice a day, stop, completely NSAIDs. her diet has been already advanced, and she seems to be tolerating that. 2. Hypoxemic respiratory failure. She does have pulmonary edema, and probably likely she has pneumonia at the bases mostly on the left lower lung. I have started this patient on broad- spectrum antibiotics. She is coughing up a little bit of phlegm, which is yellowish/greenish. No fever. 3. Atrial fibrillation with RVR. This patient received some diltiazem a couple of days ago, and she converted back to sinus rhythm. The diltiazem has been stopped already yesterday. She started having again atrial fibrillation so Cardiology Department has been notified, and they started this patient on amiodarone. Will continue following their recommendations. 4. History of hypertension. We will monitor. Stable. 5. History of situational depression. Aware. 6. Left bimalleolar ankle fracture, status post repair a few weeks ago. Aware. 7. History of dementia. Aware. 8. Possible bibasilar pneumonia mostly on the left side. She received a complete course of antibiotics a few days ago with Augmentin and Zyvox, but at this time I will put her on Zosyn. She received a couple doses of Lasix due to her pulmonary edema. We will monitor. She sounds better today compared with yesterday. CRITICAL CARE TIME: 35 minutes. cc: Prabhu Romero MD
[2019-04-14] MEDS: CELEXA PO SCH (08:55)
[2019-04-14] MEDS: ZOSYN 3.375 GM in NS 50 ML IV SCH ×3 (08:55→20:23)
[2019-04-14] MEDS: BENTYL PO SCH ×4 (08:55→20:23)
[2019-04-14] MEDS: KLONOPIN PO SCH (12:05)
[2019-04-14] MEDS: LOPRESSOR PO SCH ×2 (16:03→20:23)
[2019-04-14] MEDS: LOVENOX SUBQ SCH (18:24)
--- NOTE | 2019-04-14 18:58 | PROGRESS NOTE ---
DATE: 04/14/2019 SUBJECTIVE: Patient denies shortness of breath. On supplemental oxygen per nasal cannula. She has some cough productive of yellow sputum. She remains in atrial fibrillation. OBJECTIVE: VITAL SIGNS: Blood pressure 105/66, heart rate 109 and irregular with ECG monitor showing atrial fibrillation. There is no significant jugular venous distention. Chest: Auscultation of the chest reveals scattered rhonchi. Cardiac: Examination reveals an irregular rate and rhythm without appreciable murmur or gallop. Extremities: Without edema. LABORATORY DATA: Includes a white blood cell count 9.36, hematocrit 25.5, hemoglobin 8.3, platelet count 189. Sodium 137, potassium 3.9, chloride 95, carbon dioxide 32, BUN 8, creatinine 0.9. Glucose 102. Chest x-ray demonstrates bilateral infiltrates pretty much unchanged despite diuresis. IMPRESSION: 1. Persistent atrial fibrillation. Heart rate reasonably controlled. 2. Hypoxemic respiratory failure. 3. Hypertension. 4. Sinus node dysfunction with history of previous permanent dual-chamber pacemaker. Due to right ventricular lead dysfunction, the pacemaker has been programmed AAIR mode. 5. The patient admitted with severe anemia and suspected GI blood loss with endoscopy showing gastric ulcers. She has been transfused 2 units packed red cells. 6. Status post open reduction and internal fixation of left bimalleolar ankle fracture fairly recently. Patient injured left ankle in a fall without loss of consciousness. 7. Previous aspiration pneumonitis. RECOMMENDATIONS: 1. Add metoprolol to try and improve rate control further. 2. Continue amiodarone. 3. Given recent GI bleed, anticoagulation contraindicated. 4. Continue to diurese and monitor clinical progress. 5. Pulmonary toilet and continue to treat for pneumonia. cc: Bethel Franklin MD
--- NOTE | 2019-04-14 19:17 | GENERAL SURGERY PROGRESS NOTE ---
DATE: 04/14/2019 SUBJECTIVE: I have been asked to see this patient regarding possible chronic mesenteric ischemia. This is a 79-year-old lady who reports postprandial pain. She has lost about 50 pounds, according to her family, over the past year. She reports pain after eating. Her CT scan does show an occluded SMA, a stenotic celiac with plaque present, and a patent SERGIO. OBJECTIVE: Heart: She has an irregular rate and rhythm. Lungs: Clear. Abdomen: Soft. Bowel sounds are present. She is nontender to palpation. Extremities: Femoral pulses are present. Neurologic: She is awake alert and oriented. ASSESSMENT: Superior mesenteric artery occlusion. Celiac stenosis. Her internal mammary artery is patent. This could be consistent with chronic mesenteric ischemia. If we could simply get her celiac opened into normal caliber, I think this would help her symptoms and hopefully we can avoid any further intervention. I will discuss this with her and possibly intervene for a possible stent placement early next week, if she is in agreement. cc: Johnnie Mai MD
[2019-04-14] MEDS: PRAVACHOL PO SCH (20:23)
[2019-04-15] MEDS: MORPHINE IV PRN ×3 (00:37→15:33)
[2019-04-15] MEDS: ZOSYN 3.375 GM in NS 50 ML IV SCH ×4 (00:37→19:18)
[2019-04-15] MEDS: XOPENEX NEB INH SCH ×6 (03:49→23:26)
[2019-04-15] MEDS: ATROVENT NEB INH SCH ×6 (03:49→23:26)
[2019-04-15 05:35] LABS: BASO# 0.03 X1000 (0.0-0.2); BASO% 0.3 % (0.0-0.8); EOS# 0.63 X1000 (0.0-0.7); EOS% 6.7 % (0.0-10.0); HEMATOCRIT 26.1 % (37.0-47.0); HEMOGLOBIN 8.5 g/dL (12.0-16.0); IMM GRAN# 0.04 X1000 (0.0-0.04); IMM GRAN% 0.4 % (0.0-0.5); LYMPH# 2.09 X1000 (1.2-3.4); LYMPH% 22.2 % (20.5-51.1); MCH 30.6 PG (27-31); MCHC 32.6 g/dL (33-37); MCV 93.9 FL (81-99); MONO# 2.19 X1000 (0.11-0.59); MONO% 23.2 % (1.7-9.3); NEUT# 4.45 X1000 (1.4-6.5); NEUT% 47.2 % (42.2-75.2); PLT 218 X1000 (130-400); RBC 2.78 XMIL (4.2-5.4); RDW 13.4 % (11.5-14.5); WBC 9.43 X1000 (4.8-10.8)
[2019-04-15] MEDS: LOPRESSOR PO SCH ×4 (05:37→21:31)
[2019-04-15] MEDS: PROTONIX PO SCH ×3 (05:38→19:18)
[2019-04-15] MEDS: SYNTHROID PO SCH ×2 (05:40→06:18)
[2019-04-15 05:44] LABS: ALB/GLOB RATIO 0.9; ALBUMIN 2.9 g/dL (3.5-5.0); CALCIUM 7.7 mg/dL (8.8-10.2); MAGNESIUM 1.7 mg/dL (1.5-2.7); PHOSPHORUS 2.9 mg/dL (2.7-4.5); POTASSIUM 3.6 mmol/L (3.5-5.1); TOTAL BILIRUBIN 0.58 mg/dL (0.20-1.00); TOTAL PROTEIN 6.2 g/dL (6.3-8.3)
[2019-04-15 06:09] LABS: BANDS 2 % (0-1); EOS 3 % (1-10); LYMPHS 24 % (21-51); MONO 10 % (1-9); SEGS 61 % (42-75)
[2019-04-15] MEDS: CELEXA PO SCH (08:03)
[2019-04-15] MEDS: KLONOPIN PO SCH (08:03)
[2019-04-15] MEDS: BENTYL PO SCH ×4 (08:03→21:30)
[2019-04-15] MEDS: CORDARONE PO SCH ×3 (08:03→21:32)
[2019-04-15] MEDS: MUCOMYST 20% INH SCH ×2 (08:36→20:21)
--- NOTE | 2019-04-15 09:27 | PROGRESS NOTE ---
DATE: 04/15/2019 SUBJECTIVE: Patient is resting comfortably in bed. Today, she is completely alert and oriented x3. She converted back to sinus rhythm. She is tolerating her food. As per the patient, she feels much better. She is still coughing and having crackles bilaterally. OBJECTIVE: Vital Signs: Temperature 98.1 degrees, pulse 65, respiratory rate 20, blood pressure 104/59, oxygen saturation 95% on 2 L of nasal cannula. HEENT: Head normocephalic, no trauma. PERRLA. Neck: Supple. No JVD. No masses. Central trachea. Chest: Bilateral rhonchi and crackles, mostly at the bases. Scattered mild end-expiratory wheezing, which is generalized. Abdomen: Soft, nontender, nondistended. No hepatosplenomegaly. Extremities: No edema, no clubbing, no cyanosis. Neurological examination: This patient is completely alert, awake and oriented x3. She has a splint at the level of the left lower extremity due to previous surgery. LABORATORY: WBC 9.4, hemoglobin 8.5, hematocrit 26.1, platelets 218. Sodium 132, potassium 3.6, chloride 89, bicarbonate 36. BUN 10, creatinine 1, glucose 97, calcium 7.7, albumin 2.9. ASSESSMENT AND PLAN: 1. Gastrointestinal bleed status post esophagogastroduodenoscopy that showed gastritis, multiple biopsies were performed, and she has a single ulcer measuring around 10 mm size in the anterior wall of the gastric antrum. No signs of duodenal problems. It has been recommended to continue with proton pump inhibitors twice a day. Stop completely nonsteroidal anti- inflammatory drugs. She is tolerating her diet. 2. Hypoxemic respiratory failure with likely bibasilar pneumonia, mostly on the left side. I will continue with broad-spectrum antibiotics. She denies any fever or chills, but she is still coughing. We will monitor this patient closely. Oxygen supplementation. 3. Bibasilar pneumonia, as above. 4. Atrial fibrillation with rapid ventricular response. Now she converted back to sinus rhythm. We will continue with the same management. Cardiology Department on board. Yesterday I had a conversation with Cardiology Department who suggested to put this patient at least on Lovenox, but not the therapeutic dose. So she has been placed on Lovenox 40 daily, and we will monitor closely for any kind of bleeding or signs of bleeding. 5. History of situational depression. Aware. 6. History of hypertension. We will monitor. Stable. 7. Left bimalleolar ankle fracture status post repair a few weeks ago. Aware. 8. History of dementia. Aware. Today, she is alert and oriented times three. cc: Prabhu Romero MD
--- NOTE | 2019-04-15 12:46 | PROGRESS NOTE ---
DATE: 04/15/2019 SUBJECTIVE: Ms. Kristie Grossman is a 79-year-old white female, chronically ill, who has mesenteric vascular disease. Underwent an upper endoscopy per Dr. Spangler. She has a duodenal ulcer. She is on p.o. Protonix twice daily. OBJECTIVE: She is sitting up in a chair awake and cooperative in the ICU. Her heart rate 62, blood pressure 103/47, O2 saturation 97%. She is afebrile. DIAGNOSTIC STUDIES: Her hematocrit is 26% and that has been stable. Electrolytes are satisfactory. PLAN: Continue Intensive Care Unit care. Serial hematocrits. She needs her Protonix. This Protonix is being given p.o. where IV Protonix is low in this hospital. cc: Ivonne Shen MD MTDD
[2019-04-15] MEDS: LOVENOX SUBQ SCH (16:58)
[2019-04-15] MEDS ORDERED: ATIVAN IV ONE (20:03)
[2019-04-15] MEDS: PRAVACHOL PO SCH (21:30)
[2019-04-16] MEDS: ZOSYN 3.375 GM in NS 50 ML IV SCH ×4 (02:07→18:34)
[2019-04-16] MEDS: XOPENEX NEB INH SCH ×6 (03:25→23:34)
[2019-04-16] MEDS: ATROVENT NEB INH SCH ×6 (03:25→23:35)
[2019-04-16] MEDS: LOPRESSOR PO SCH ×3 (04:37→20:33)
[2019-04-16 05:58] LABS: BASO# 0.02 X1000 (0.0-0.2); BASO% 0.2 % (0.0-0.8); EOS% 8.1 % (0.0-10.0); HEMATOCRIT 26.4 % (37.0-47.0); HEMOGLOBIN 8.7 g/dL (12.0-16.0); IMM GRAN# 0.04 X1000 (0.0-0.04); IMM GRAN% 0.4 % (0.0-0.5); LYMPH# 2.26 X1000 (1.2-3.4); LYMPH% 22.8 % (20.5-51.1); MCH 30.9 PG (27-31); MCV 93.6 FL (81-99); MONO# 1.62 X1000 (0.11-0.59); MONO% 16.3 % (1.7-9.3); MPV 10.7 FL (7.4-10.4); NEUT# 5.19 X1000 (1.4-6.5); NEUT% 52.2 % (42.2-75.2); PLT 241 X1000 (130-400); RBC 2.82 XMIL (4.2-5.4); RDW 13.5 % (11.5-14.5); WBC 9.93 X1000 (4.8-10.8)
[2019-04-16 06:15] LABS: CALCIUM 7.9 mg/dL (8.8-10.2); MAGNESIUM 1.8 mg/dL (1.5-2.7); PHOSPHORUS 2.8 mg/dL (2.7-4.5); POTASSIUM 3.6 mmol/L (3.5-5.1)
[2019-04-16] MEDS: PROTONIX PO SCH ×2 (06:25→18:34)
[2019-04-16] MEDS: SYNTHROID PO SCH (06:25)
[2019-04-16] MEDS ORDERED: LASIX IV ONE (07:21)
--- NOTE | 2019-04-16 07:46 | PROGRESS NOTE ---
DATE: 04/16/2019 SUBJECTIVE: The patient at this moment is resting comfortably in bed. She was confused yesterday night. She fell asleep around 3 a.m. She received a low dose of Ativan around 0.5 mg yesterday night. No family members at the bedside. She has bilateral crackles. I will give her a dose of Lasix. OBJECTIVE: Vital Signs: Temperature 97.9 degrees, pulse 66, respiratory rate 18, blood pressure 145/68, oxygen saturation 99 on 2 L of nasal cannula. HEENT: Head normocephalic. No trauma. PERRLA. Neck: Supple. No JVD. No masses. Central trachea. Chest: Bilateral rhonchi and crackles, mostly at the bases. No wheezing today. Abdomen: Soft, nontender, nondistended. No hepatosplenomegaly. Extremities: No edema, no clubbing, no cyanosis. Neurological Examination: This patient is sleepy but arousable. She moves all 4 extremities spontaneously. She is not answering my questions right now because she is really sleepy. Laboratory: WBC 9.9, hemoglobin 8.7, hematocrit 26.4, platelets 241,000. Sodium 135, potassium 3.6, chloride 93, bicarbonate 42, BUN 12, creatinine 1, glucose 90, calcium 7.9, phosphorus 2.8, magnesium 1.8. ASSESSMENT AND PLAN: 1. Gastrointestinal bleed, status post esophagogastroduodenoscopy that showed gastritis. Multiple biopsies were performed. She has a single ulcer measuring around 10 mm size in the anterior wall of the gastric antrum. No signs of duodenal problems. We will continue with proton pump inhibitors twice a day. Stop completely nonsteroidal anti-inflammatory drugs and she is tolerating her diet. 2. Hypoxemic respiratory failure, likely secondary to bibasilar pneumonia, mostly on the left side. I will continue with broad spectrum antibiotics. Also, she has some pulmonary edema. I will give her a dose of Lasix. We will continue to monitor this patient closely. 3. Bibasilar pneumonia, as above. 4. Atrial fibrillation with rapid ventricular response. Now, she converted back to sinus. She has a pacemaker. Cardiology is on board. I had a conversation with the cardiology department who suggested to put this patient on Lovenox to avoid blood clots since she is having atrial fibrillation and also she has a left lower extremity splint, and she is not doing any kind of physical activity. I agree with that and we put her on Lovenox 40 daily. 5. History of situational depression. Aware. 6. History of hypertension. We will monitor. Stable. 7. Left bimalleolar ankle fracture, status post repair a few weeks ago. Aware. 8. History of dementia. Aware. She is really sleepy today but most of the time, she is answering my questions. cc: Prabhu Romero MD
--- NOTE | 2019-04-16 07:51 | Diag Imaging Result Doc PS360 ---
CHEST-PORTABLE - 04/16/2019 INDICATION: dyspnea COMPARISON: 04/14/2019 FINDINGS: Stable pacemaker. Stable mild cardiomegaly. There has been decrease in the background interstitial reticulonodular interstitial infiltrates. No pneumothorax or significant pleural effusion. IMPRESSION: Decrease in the background interstitial infiltrates suggestive of pulmonary edema. Electronically signed by Cristiano Grant 04/16/2019 7:49 AM
[2019-04-16] MEDS: MUCOMYST 20% INH SCH ×2 (08:03→19:21)
[2019-04-16] MEDS: CORDARONE PO SCH ×3 (08:06→20:34)
[2019-04-16] MEDS: BENTYL PO SCH ×4 (08:06→20:35)
[2019-04-16] MEDS: CELEXA PO SCH (08:06)
[2019-04-16] MEDS: KLONOPIN PO SCH (08:06)
--- NOTE | 2019-04-16 09:18 | PROGRESS NOTE ---
DATE: 04/16/2019 SUBJECTIVE: Ms. Grossman hematocrit has been stable. It is 26. She is sitting up in bed trying to eat some breakfast this morning. She remains hemodynamically stable. There has been no clinical evidence of upper GI bleed. She is on p.o. Protonix. cc: Ivonne Shen MD
[2019-04-16] MEDS: MORPHINE IV PRN ×3 (14:14→20:44)
[2019-04-16] MEDS: LOVENOX SUBQ SCH (16:12)
[2019-04-16] MEDS: PRAVACHOL PO SCH (20:34)
[2019-04-17] MEDS: ZOSYN 3.375 GM in NS 50 ML IV SCH ×4 (01:18→21:16)
[2019-04-17] MEDS: MORPHINE IV PRN ×5 (01:21→21:17)
[2019-04-17] MEDS: XOPENEX NEB INH SCH ×6 (03:16→23:10)
[2019-04-17] MEDS: ATROVENT NEB INH SCH ×6 (03:16→23:10)
[2019-04-17] MEDS: LOPRESSOR PO SCH ×3 (04:25→21:16)
[2019-04-17] MEDS: PROTONIX PO SCH ×2 (06:08→19:10)
[2019-04-17] MEDS: SYNTHROID PO SCH (06:08)
[2019-04-17 06:40] LABS: BASO# 0.02 X1000 (0.0-0.2); BASO% 0.2 % (0.0-0.8); EOS# 1.11 X1000 (0.0-0.7); EOS% 10.1 % (0.0-10.0); HEMATOCRIT 26.6 % (37.0-47.0); HEMOGLOBIN 8.5 g/dL (12.0-16.0); IMM GRAN# 0.06 X1000 (0.0-0.04); IMM GRAN% 0.5 % (0.0-0.5); LYMPH# 2.33 X1000 (1.2-3.4); LYMPH% 21.2 % (20.5-51.1); MCH 30.4 PG (27-31); MONO# 1.53 X1000 (0.11-0.59); MONO% 13.9 % (1.7-9.3); MPV 10.9 FL (7.4-10.4); NEUT# 5.94 X1000 (1.4-6.5); NEUT% 54.1 % (42.2-75.2); PLT 309 X1000 (130-400); RDW 13.6 % (11.5-14.5); WBC 10.99 X1000 (4.8-10.8)
[2019-04-17 07:02] LABS: CALCIUM 8.1 mg/dL (8.8-10.2); CREATININE 1.3 mg/dL (0.5-0.9); POTASSIUM 3.3 mmol/L (3.5-5.1)
--- NOTE | 2019-04-17 07:17 | EKG Report ---
Test Performed on : 04/17/2019 06:44:44 AM Test Reason : afib Blood Pressure : / mmHG Vent. Rate : 060 BPM Atrial Rate : 060 BPM P-R Int : 222 ms QRS Dur : 100 ms QT Int : 560 ms P-R-T Axes : 094 005 -61 degrees QTc Int : 560 ms Sinus rhythm. with 1st degree AV block. T wave abnormality, consider anterolateral ischemia Prolonged QT Abnormal ECG When compared with ECG of 16-APR-2019 06:30, (Unconfirmed) Inverted T waves have replaced nonspecific T wave abnormality in Lateral leads Confirmed by Dave ISSA, Al Sutton ([id number]) on 04/17/2019 9:31:11 AM
--- NOTE | 2019-04-17 07:33 | EKG Report ---
Test Performed on : 04/16/2019 06:30:52 AM Test Reason : afib Blood Pressure : / mmHG Vent. Rate : 062 BPM Atrial Rate : 062 BPM P-R Int : 220 ms QRS Dur : 094 ms QT Int : 540 ms P-R-T Axes : 095 005 -31 degrees QTc Int : 548 ms Sinus rhythm. with 1st degree AV block. ST & T wave abnormality, consider anterior ischemia Prolonged QT Abnormal ECG When compared with ECG of 15-APR-2019 19:15, (Unconfirmed) Sinus rhythm. has replaced Junctional rhythm. Non-specific change in ST segment in Inferior leads T wave inversion now evident in Anterior leads Confirmed by Dave ISSA, Al Sutton ([id number]) on 04/17/2019 9:30:55 AM
--- NOTE | 2019-04-17 07:34 | EKG Report ---
Test Performed on : 04/15/2019 7:15:15 PM Test Reason : EVALUATION Blood Pressure : / mmHG Vent. Rate : 069 BPM Atrial Rate : 071 BPM P-R Int : 000 ms QRS Dur : 088 ms QT Int : 468 ms P-R-T Axes : 000 012 -37 degrees QTc Int : 501 ms Accelerated Junctional rhythm. Nonspecific ST and T wave abnormality Prolonged QT Abnormal ECG When compared with ECG of 15-APR-2019 06:40, (Unconfirmed) Junctional rhythm. has replaced Sinus rhythm. Non-specific change in ST segment in Inferior leads Nonspecific T wave abnormality has replaced inverted T waves in Anterior leads Confirmed by Dave ISSA, Al Sutton ([id number]) on 04/17/2019 9:30:40 AM
--- NOTE | 2019-04-17 07:35 | EKG Report ---
Test Performed on : 04/15/2019 06:40:26 AM Test Reason : afib Blood Pressure : / mmHG Vent. Rate : 062 BPM Atrial Rate : 062 BPM P-R Int : 188 ms QRS Dur : 090 ms QT Int : 520 ms P-R-T Axes : 097 004 -37 degrees QTc Int : 527 ms Sinus rhythm. with premature atrial complexes. ST & T wave abnormality, consider anterior ischemia Prolonged QT Abnormal ECG When compared with ECG of 13-APR-2019 23:36, Sinus rhythm. has replaced Atrial fibrillation. Vent. rate has decreased BY [address] no longer depressed in Lateral leads T wave inversion more evident in Anterior leads Nonspecific T wave abnormality has replaced inverted T waves in Lateral leads Confirmed by Dave ISSA, Al Sutton ([id number]) on 04/17/2019 9:30:24 AM
[2019-04-17] MEDS: MUCOMYST 20% INH SCH ×2 (07:40→19:31)
[2019-04-17] MEDS ORDERED: KLOR-CON PO ONE (07:40)
--- NOTE | 2019-04-17 08:15 | PROGRESS NOTE ---
DATE: 04/17/2019 SUBJECTIVE: At this moment, this patient is resting comfortably in bed. It looks like she was in pain during the night and she received some doses of morphine, the last one around 5 a.m. She is sleeping at this moment. She still has bilateral crackles, even though we have a negative balance of 5.4 L. She is having bowel movements and she is tolerating p.o. when she is awake. OBJECTIVE: Vital Signs: Temperature 97.3 degrees, pulse 60, respiratory rate 16, blood pressure 105/63, oxygen saturation 96% on 2 L of nasal cannula. HEENT: Head normocephalic. No trauma. PERRLA. Neck: Supple. No JVD. No masses. Central trachea. Chest: Bilateral rhonchi and crackles, mostly at the bases. Scattered wheezing. Abdomen: Soft, nontender, nondistended. No hepatosplenomegaly. Extremities: No edema, no clubbing, no cyanosis. Neurological Examination: This patient is sleeping. She received a dose of morphine around 5 a.m. or so. She is waking up a little bit but falling right back to sleep immediately. Laboratory: WBC 10.9, hemoglobin 8.5, hematocrit 26.6, platelets 309,000. Sodium 135, potassium 3.3, chloride 91, bicarbonate 34, BUN 13, creatinine 1.3, glucose 86, calcium 8.1. ASSESSMENT AND PLAN: 1. Gastrointestinal bleed, status post esophagogastroduodenoscopy that showed gastritis. Multiple biopsies were performed. She has a single ulcer measuring around 10 mm size in the anterior wall of the gastric antrum. No signs of duodenal lesions. We will continue with proton pump inhibitors twice a day. We need to stop completely the nonsteroidal anti- inflammatory drugs and she is tolerating diet when she is awake. 2. Hypoxemic respiratory failure, likely secondary to bibasilar pneumonia, possible aspiration, mostly on the left side. I will continue broad-spectrum antibiotics. Also, she has some pulmonary edema. She has been getting Lasix and even though her balance is - 5.4 L, she is still having some crackles. Cardiology on board as well. I have requested an evaluation by pulmonary department. 3. Bibasilar pneumonia, as above, possible aspiration pneumonia. 4. Atrial fibrillation with rapid ventricular response. Now, she converted back to sinus. She has a pacemaker and it looks like it is working right now. Cardiology on board. We will continue following their recommendations. They have suggested to put this patient on a low dose of Lovenox and I agree with that due to her atrial fibrillation, she is not moving too much, and she has a recent fracture with a splint. 5. History of situational depression. Aware. 6. History of hypertension. We will monitor. Stable. 7. Left bimalleolar ankle fracture, status post repair a few weeks ago. Aware. 8. History of dementia. Aware. 9. Overall, this patient is about the same compared with yesterday. I have requested a chest x- ray, pending at this moment. Also, I have requested an evaluation by the pulmonary department, physical therapy, and occupational therapy. Critical care time: 30 minutes cc: Prabhu Romero MD MTDD
[2019-04-17] MEDS: BENTYL PO SCH ×4 (08:48→21:16)
[2019-04-17] MEDS: KLONOPIN PO SCH (08:48)
[2019-04-17] MEDS: CORDARONE PO SCH (08:49)
[2019-04-17] MEDS: CELEXA PO SCH (08:49)
[2019-04-17] MEDS ORDERED: CORDARONE PO SCH (09:00)
--- NOTE | 2019-04-17 11:38 | Diag Imaging Result Doc PS360 ---
EXAM: CHEST-PORTABLE HISTORY: SOB TECHNIQUE: Chest single view COMPARISON: 04/16/2019 FINDINGS: Poor inspiratory effort. Mild cardiomegaly with pulmonary edema. There is a left-sided pacemaker. Small left pleural effusion. Moderate scoliosis. IMPRESSION: Worsening pulmonary edema. Electronically signed by Mason Fuller 04/17/2019 11:35 AM
--- NOTE | 2019-04-17 14:49 | GENERAL SURGERY PROGRESS NOTE ---
DATE: 04/17/2019 SUBJECTIVE: Ms. Grossman states she feels better today. OBJECTIVE: Vital Signs: She is afebrile. Heart rate is 67, blood pressure 116/56 General: She is taking liquids. She has eaten a little food, but she says it does make her sick at her stomach to some degree. Her hemodynamics are okay. LABORATORY: Hemoglobin is 8.5, hematocrit 26.6. ASSESSMENT AND PLAN: I discussed a celiac artery angiogram, possible stent placement for Wednesday. She understands and agrees to proceed. cc: Johnnie Mai MD
[2019-04-17] MEDS: LOVENOX SUBQ SCH (17:26)
--- NOTE | 2019-04-17 20:15 | PULMONOLOGY CONSULTATION ---
DATE: 04/17/2019 REQUESTING PHYSICIAN: Dr. Zambrano. REASON FOR CONSULTATION: Pneumonia and respiratory failure. HISTORY OF PRESENT ILLNESS: Ms. Grossman is a 79-year-old white female, never smoker, who was admitted to this hospital on 03/21/2019 until 03/30/2019, after she had fallen at home and fractured her left ankle. This was surgically repaired. She was discharged to the rehab facility, but was noted to have a hemoglobin level of 5.9. The patient was readmitted to the hospital on 04/10/2019, and the CT scan of the abdomen and pelvis was performed which revealed pleural effusions, anasarca, occlusion of the superior mesenteric artery, with apparent patency of the inferior mesenteric artery and the celiac artery. The patient has had abnormal weight loss. She has had episodes of nausea and vomiting. She is currently being considered for celiac artery angiogram with possible stent placement. She continues to have early satiety and postprandial pain. She has audible rhonchi with cough. PAST MEDICAL HISTORY: 1. Gastroesophageal reflux disease. 2. Dyslipidemia. 3. Hypertension. 4. Chronic back pain. 5. Anxiety/depressive disorder. 6. Hypothyroidism. 7. Status post pacemaker placement for bradycardia. 8. Bilateral knee replacement. 9. Open reduction and internal fixation of the ankle, as per above. SOCIAL HISTORY: She is a never smoker by report. No alcohol use. FAMILY HISTORY: Noncontributory to current presentation. REVIEW OF SYSTEMS: Notable for reflux, cough, dyspnea, early satiety, abnormal weight loss. PHYSICAL EXAMINATION: General: A frail white female who has audible rhonchi when asked to deep breathe and cough. The patient has been afebrile for the last 24 hours. Blood pressure 130/50, heart rate 64, respiratory rate 17, oxygen saturation 95%. HEENT: Pupils are equal and reactive. Oropharynx appears clear. Neck: Supple. Chest: Rhonchi bilaterally. Cardiac: S1, S2. Abdomen: Soft. Extremities: Postsurgical changes on the ankle. LABORATORIES: White blood count 10.99, hemoglobin 8.5 following transfusions, platelet count 309,000. Sodium 135, potassium 3.3, chloride 91, bicarbonate 13, BUN 1.3. Chest x-ray reveals bilateral infiltrates with small left effusion, mild cardiomegaly. IMPRESSION: A 79-year-old with: 1. Possible bowel ischemia. 2. Postprandial pain. 3. Nausea and vomiting. 4. Audible rhonchi. 5. Hypoxemic respiratory failure. 6. Aspiration pneumonia. RECOMMENDATIONS: 1. Agree with plans to evaluate bowel for revascularization. 2. Cautious p.o. intake given history of reflux and vomiting. 3. Continue bronchodilators. 4. Add incentive spirometry. 5. Continue broad-spectrum antibiotics. cc: Fede Lopez MD
[2019-04-17] MEDS: PRAVACHOL PO SCH (21:16)
[2019-04-18] MEDS: ZOSYN 3.375 GM in NS 50 ML IV SCH ×4 (02:43→21:02)
[2019-04-18] MEDS: MORPHINE IV PRN ×4 (03:18→21:04)
[2019-04-18] MEDS: ATROVENT NEB INH SCH ×6 (03:34→23:16)
[2019-04-18] MEDS: XOPENEX NEB INH SCH ×6 (03:35→23:17)
[2019-04-18] MEDS: SYNTHROID PO SCH ×2 (05:38→06:30)
[2019-04-18] MEDS: PROTONIX PO SCH ×4 (05:38→17:12)
[2019-04-18] MEDS: LOPRESSOR PO SCH ×3 (05:38→21:01)
[2019-04-18 05:42] LABS: BASO# 0.03 X1000 (0.0-0.2); BASO% 0.3 % (0.0-0.8); EOS# 1.09 X1000 (0.0-0.7); EOS% 10.6 % (0.0-10.0); HEMATOCRIT 26.8 % (37.0-47.0); HEMOGLOBIN 8.4 g/dL (12.0-16.0); IMM GRAN# 0.05 X1000 (0.0-0.04); IMM GRAN% 0.5 % (0.0-0.5); LYMPH# 1.35 X1000 (1.2-3.4); LYMPH% 13.1 % (20.5-51.1); MCH 30.1 PG (27-31); MCHC 31.3 g/dL (33-37); MCV 96.1 FL (81-99); MONO# 1.18 X1000 (0.11-0.59); MONO% 11.5 % (1.7-9.3); MPV 10.4 FL (7.4-10.4); PLT 323 X1000 (130-400); RBC 2.79 XMIL (4.2-5.4); RDW 13.9 % (11.5-14.5)
[2019-04-18 06:05] LABS: ALB/GLOB RATIO 0.9; CALCIUM 8.3 mg/dL (8.8-10.2); MAGNESIUM 1.7 mg/dL (1.5-2.7); PHOSPHORUS 2.9 mg/dL (2.7-4.5); POTASSIUM 3.9 mmol/L (3.5-5.1); TOTAL BILIRUBIN 0.39 mg/dL (0.20-1.00); TOTAL PROTEIN 6.4 g/dL (6.3-8.3)
--- NOTE | 2019-04-18 07:21 | Diag Imaging Result Doc PS360 ---
EXAM: CHEST-PORTABLE 04/18/2019 HISTORY: dyspnea TECHNIQUE: AP portable at 0607 COMMENT: There is blunting the left costophrenic angle. The ill-defined opacities throughout much of the left base on 04/17/2019 have improved. There are still coarse opacification in the right lower lobe. IMPRESSION: Pulmonary edema and/or pneumonia. Improved on the left. Electronically signed by Cyril Alvarez 04/18/2019 7:18 AM
[2019-04-18] MEDS: MUCOMYST 20% INH SCH ×2 (07:22→19:19)
[2019-04-18] MEDS: CORDARONE PO SCH (08:10)
[2019-04-18] MEDS: CELEXA PO SCH (08:10)
[2019-04-18] MEDS: KLONOPIN PO SCH (08:10)
[2019-04-18] MEDS: BENTYL PO SCH ×4 (08:10→21:01)
--- NOTE | 2019-04-18 09:08 | PROGRESS NOTE ---
DATE: 04/18/2019 SUBJECTIVE: Ms. Grossman is feeling better. She ate almost all of her breakfast, so that was a first. She still has epigastric discomfort, especially after eating. She remains afebrile. OBJECTIVE: Vital Signs: Temperature 97.5 degrees, pulse 60, respirations 14, blood pressure 131/67. Eyes: Pupils are equal and round. Lungs: Clear in all lung fagan. Cardiovascular exam: Regular rhythm and rate without murmur or S3. Abdomen: Soft. Skin: Skin is warm and dry. X-RAYS: Her chest x-ray from this morning: Pulmonary edema. Pneumonia is improved on the left. ASSESSMENT AND PLAN: 1. Suspect some superior mesenteric artery insufficiency and bowel ischemia. Plan is to place a stent for Dr. Jeremias Mai I think tomorrow. 2. Postprandial pain. We did an esophagogastroduodenoscopy; she has diffuse gastritis and peptic ulcer, so continue proton pump inhibitor. She is on Protonix 40 mg oral twice a day. 3. Audible rhonchi, hypoxemic respiratory failure which is improved, aspiration pneumonia is improved radiographically and clinically. 4. Atrial fibrillation, rapid ventricular response. She has converted back to sinus rhythm and Cardiology is following. She is on a low dose of Lovenox. She has had a recent fracture and splint, and is about to undergo vascular surgery for the superior mesenteric artery. 5. Situational depression. 6. Hypertension. 7. Left bimalleolar ankle fracture status post repair a few weeks ago. 8. Dementia. Aware. REVIEW OF ORDERS: She is getting Pravachol 40 mg at bedtime, Lopressor 25 mg q. 8 hours. She is on acetylcysteine 20% inhalation b.i.d., amiodarone 200 mg daily, Celexa 40 mg a day, Klonopin 0.5 mg a day, Benadryl 20 mg four times a day. She is on Cardizem or diltiazem drip and Synthroid 75 mcg daily, Protonix 40 mg twice a day p.o. She is on Zosyn 3.375 g IV q. 6 hours. LAB: This morning, white count 10,300, hematocrit is 26, hemoglobin 8.4, platelet count 323,000. Chemistry: Sodium 138, potassium 3.9, chloride 97, bicarbonate 33. BUN 9, creatinine 1.0. cc: Al Acosta MD
[2019-04-18] MEDS: LOVENOX SUBQ SCH (16:10)
--- NOTE | 2019-04-18 19:01 | PROGRESS NOTE ---
DATE: 04/18/2019 SUBJECTIVE: Patient progressive feeling better. She is taking oral intake reasonably well at this point. She reports some nausea and abdominal discomfort after eating. She denies any shortness of breath or chest pain. She continues in sinus rhythm. OBJECTIVE: Blood pressure 123/51, heart rate 59 and regular with ECG monitor showing sinus rhythm. Oxygen saturation 100% on nasal cannula oxygen. There is no significant jugular venous distention.Chest: Auscultation of the chest reveals scattered rhonchi. Cardiac: Reveals a regular rate and rhythm without appreciable murmur or gallop. Abdomen: Soft. Bowel sounds audible. Extremities: Without edema. LABORATORY DATA: Includes a white blood cell count of 10.3, hematocrit 26.8, hemoglobin 8.4, platelet count 323,000. Sodium 138, potassium 3.9, chloride 97, carbon dioxide 33, BUN 9, creatinine 1.0, glucose 90. IMPRESSION: 1. Recent atrial fibrillation. Patient converted back to sinus rhythm. 2. Recent upper gastrointestinal bleed related to gastric ulcers. 3. Recent hypoxemic respiratory failure improving. Aspiration pneumonitis and/or pneumonia and/or pulmonary edema suspected. 4. Hypertension. 5. Sinus node dysfunction with history of permanent dual-chamber pacemaker with dysfunctional right ventricular lead. Patient programmed AAIR mode. 6. Peripheral vascular disease with superior mesenteric artery stenosis. 7. Recent left bimalleolar ankle fracture repaired with open reduction and internal fixation a few weeks ago. 8. Some degree of dementia. RECOMMENDATIONS: 1. Continue telemetry observation. 2. Continue metoprolol. 3. Continue oral amiodarone. 4. Given recent GI bleed, anticoagulation for thromboembolic risk protection carries greater risk than benefit. cc: Bethel Franklin MD
--- NOTE | 2019-04-18 19:34 | GENERAL SURGERY PROGRESS NOTE ---
DATE: 04/18/2019 SUBJECTIVE: Ms. Grossman is hemodynamically stable. OBJECTIVE: Heart rate 60. She has a femoral pulse on the left that we can access. Hemoglobin 8.4, hematocrit 26.8, white count is 10,300, BUN 9, creatinine 1.0. PLAN: The plan then will be to do a selective celiac arteriogram and stent the artery if necessary. I have discussed it with her and she agrees to proceed. cc: Johnnie Mai MD
--- NOTE | 2019-04-18 20:19 | PULMONOLOGY PROGRESS NOTE ---
DATE: 04/18/2019 SUBJECTIVE: The patient is awake, alert and conversant. She has a slightly wet cough. OBJECTIVE: Vital Signs: The patient has been afebrile for the last 24 hours. Blood pressure 155/59, heart rate 63, respiratory rate 23. Oxygen saturation 98% on 2 L per nasal cannula. HEENT: Pupils are equal and reactive. Oropharynx is clear. Neck: Supple. Chest: Chest reveals occasional rhonchi bilaterally. Cardiac: S1, S2. Abdomen: Soft. Extremities: Without edema. LABORATORIES: Chest x-ray reveals slight decreased infiltrates in the left base with continued infiltrates at the right base. IMPRESSION: 1. A 79-year-old with aspiration pneumonia. 2. Hypoxemic respiratory failure. 3. Post prandial pain. 4. Recurrent nausea and vomiting. PLAN: 1. Continue bronchial hygiene. 2. Continue antibiotics. 3. Anticipate celiac angiogram tomorrow with possible stent placement. cc: Fede Lopez MD
[2019-04-18] MEDS: PRAVACHOL PO SCH (21:02)
[2019-04-19] MEDS: ZOSYN 3.375 GM in NS 50 ML IV SCH ×4 (02:59→21:54)
[2019-04-19] MEDS: XOPENEX NEB INH SCH ×6 (03:47→23:34)
[2019-04-19] MEDS: ATROVENT NEB INH SCH ×6 (03:48→23:34)
[2019-04-19] MEDS: LOPRESSOR PO SCH ×3 (06:07→21:54)
[2019-04-19] MEDS: SYNTHROID PO SCH (06:07)
[2019-04-19] MEDS: PROTONIX PO SCH ×2 (06:07→17:37)
[2019-04-19] MEDS: MUCOMYST 20% INH SCH ×2 (07:57→19:30)
[2019-04-19] MEDS: BENTYL PO SCH ×4 (08:20→21:53)
[2019-04-19] MEDS: KLONOPIN PO SCH (08:20)
[2019-04-19] MEDS: CELEXA PO SCH (08:20)
[2019-04-19] MEDS: CORDARONE PO SCH (08:21)
[2019-04-19] MEDS: MORPHINE IV PRN ×2 (08:29→22:04)
--- NOTE | 2019-04-19 09:04 | PROGRESS NOTE ---
DATE: 04/19/2019 SUBJECTIVE: Ms. Grossman had a good night. She is expecting surgery today. Her breathing is comfortable. Her only pain is in her left leg, her ankle fracture. OBJECTIVE: Vital Signs: On exam today, temperature 98.4 degrees, pulse 66, respirations 16, blood pressure 140/53. Eyes: Pupils are equal and round. Lungs: Clear in all lung fagan. Cardiovascular exam: Regular rhythm and rate without murmur or S3. Abdomen: Soft. Skin: Warm and dry. : Urine output is 1500 mL. ASSESSMENT AND PLAN: 1. A 79-year-old with aspiration pneumonia, hypoxemic respiratory failure, improving. Breathing comfortably. She is still getting pulmonary toilet, but breathing comfortably. 2. Postprandial pain, suspect superior mesenteric artery insufficiency for surgery today. 3. Hypertension. Blood pressure well controlled. 4. Sinus node dysfunction, history of permanent dual chamber pacemaker, dysfunctional right ventricular lead. The patient in programmed AAIR mode. 5. Peripheral vascular disease. Superior mesenteric artery stenosis. 6. Bimalleolar ankle fracture on the left a few weeks ago. 7. Degree of dementia. She is cooperative and she is awake and oriented times 3 at this point. Review of her orders: I do not see any change. Scheduled for surgery today. Hematocrit is 26, hemoglobin 8.4. Electrolytes unremarkable. cc: Al Acosta MD
[2019-04-19] MEDS ORDERED: QUELICIN (DOSE) ONE (09:58)
[2019-04-19] MEDS ORDERED: NORCURON ONE (09:58)
[2019-04-19] MEDS ORDERED: XYLOCAINE-MPF 2% ONE (09:59)
[2019-04-19] MEDS ORDERED: DIPRIVAN 1% ONE (09:59)
[2019-04-19] MEDS ORDERED: HEPARIN ONE ×2 (11:14)
[2019-04-19] MEDS ORDERED: NS 2,000 ML ONE (11:15)
[2019-04-19] MEDS ORDERED: ZOFRAN ONE (12:37)
[2019-04-19] MEDS ORDERED: ROBINUL ONE (12:48)
--- NOTE | 2019-04-19 13:12 | OPERATIVE NOTE ---
PROCEDURE DATE: 04/19/2019 NAME OF PROCEDURES: 1. Ultrasound-guided left femoral artery access. 2. Selective celiac and selective superior mesenteric artery arteriograms. 3. Celiac artery stent placement using a 5 x 15 Palmaz Blue stent. SURGEON: Johnnie Mai MD. ASSISTANTS: Evelyn and Becky. PREOPERATIVE DIAGNOSES: 1. 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 3. Probable chronic mesenteric ischemia. POSTOPERATIVE DIAGNOSES: 1. 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 3. Probable chronic mesenteric ischemia. DESCRIPTION OF PROCEDURE: Satisfactory general endotracheal anesthesia was achieved. The abdomen and left groin were prepped and draped in a sterile fashion. We ultrasounded the left groin, identified the common femoral artery, and accessed it with a Seldinger technique. Passed a wire, followed by a 6-[place] sheath. We then passed a Glidewire up into the aorta. We identified T12. We then turned the C-arm transversely. We passed a Contra II catheter up and reformed it. We then engaged the celiac. We shot a selective arteriogram. The catheter was far enough in that we could not get a good picture of the orifice but we were in the celiac. We then engaged the SMA and again shot a arteriogram and the SMA was occluded. We had no runoff. We switched to a pigtail. Shot an aortogram and this showed the celiac stenosis. We then switched back to a Contra II, re-engaged the celiac past the 0.018 SV-5 wire into probably the splenic artery as it was a major artery. We then switched to an RDC catheter. Using a Tuohy, we shot an arteriogram showing the orifice. We then passed a 5 x 15 Palmaz Blue stent up to the orifice of the celiac. The celiac stenosis was probably 60 to 70 percent. We then pulled the RDC catheter back with the Palmaz Blue stent appropriately positioned right at the orifice. We then deployed the stent to his nominal pressures. We then shot a completion picture through the RDC catheter and this resolved the stenosis. It was well-positioned. We then felt that no further intervention was indicated. We then removed the wire and the RDC catheter. Used a Mynx closure device according to spring coiling machine setter's specifications. Held pressure for 3 minutes after deployment of the plug. We did notice a hematoma forming so we then had to hold pressure for an additional minutes, up to 10 minutes to achieve complete hemostasis of the left groin. We asked the anesthesiologist to control the blood pressure better in that timeframe. A sterile pressure dressing was applied. She was awakened at the time of this dictation. cc: Johnnie Mai MD
[2019-04-19] MEDS: DILAUDID ONE ×4 (13:32→14:02)
[2019-04-19] MEDS ORDERED: ASPIRIN PO STA (17:19)
--- NOTE | 2019-04-19 18:11 | CARDIOLOGY PROGRESS NOTE ---
DATE: 04/19/2019 SUBJECTIVE: Patient had mesenteric angiography earlier today showing occluded superior mesenteric artery and significant stenosis and celiac artery. She had angioplasty/stent of celiac artery. When I see her, she relates feeling well. She is actually eating and tolerating oral intake without complaint. She denies shortness of breath or chest pain on supplemental oxygen per nasal cannula. She continues in atrial paced rhythm. OBJECTIVE: Blood pressure 114/60, heart rate 60, oxygen saturation 97% on nasal cannula oxygen. There is no significant jugular venous distention. Auscultation of the chest reveals a few scattered rhonchi. Cardiac exam reveals a regular rate and rhythm without appreciable murmur, rub, or gallop. There is no evidence of peripheral edema. LABORATORY DATA: Includes a white blood cell count 10.3, hematocrit 26.8, hemoglobin 8.4, platelet count 323,000. Sodium 138, potassium 3.9, chloride 97, carbon dioxide 33, BUN 9 creatinine 1.0, glucose 90. IMPRESSION: 1. Recent atrial fibrillation. Patient converted back to sinus rhythm/atrial paced rhythm. 2. Recent upper gastrointestinal bleed related to gastric ulcers. 3. Recent hypoxemic respiratory failure. This is improving. 4. 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 Patient now status post angioplasty/stent of celiac artery. 5. Sinus node dysfunction with history of permanent dual-chamber pacemaker with dysfunctional right ventricular lead. Pacemaker programmed AAIR mode. 6. Hypertension. 7. Peripheral vascular disease. 8. Recent left bimalleolar fracture, repaired with open reduction and internal fixation several weeks ago. RECOMMENDATIONS: 1. Continue telemetry and observation. 2. Continue metoprolol. 3. Continue oral amiodarone. cc: Bethel Franklin MD
--- NOTE | 2019-04-19 18:36 | GENERAL SURGERY PROGRESS NOTE ---
DATE: 04/19/2019 TIME SEEN: At 3:45 in the afternoon. OBJECTIVE: She is lying comfortably, easily arouses. Her left groin shows no evidence of increasing hematoma. The pressure bandage is in place. PLAN: She is to lie flat for 3 more hours. cc: Johnnie Mai MD
--- NOTE | 2019-04-19 21:08 | PULMONOLOGY PROGRESS NOTE ---
DATE: 04/19/2014 INTERIM HISTORY: Patient underwent angiography this morning and a stent was placed in the celiac artery. The patient reports she tolerated supper. She is without specific complaints. OBJECTIVE: The patient has been afebrile for the last 24 hours. Blood pressure 108/58, heart rate 60, respiratory rate 17, oxygen saturation 98%. HEENT: Pupils are equal and reactive. Oropharynx appears clear. Neck: Supple. Chest: Reveals crackles in the lung bases. Rhonchi have diminished. Cardiac: S1, S2. Abdomen: Soft. Bowel sounds are present. Extremities: Without edema. IMPRESSION: A 79-year-old with: 1. Aspiration pneumonia. 2. Hypoxemic respiratory failure. 3. Mesenteric ischemia. PLAN: 1. Continue bronchial hygiene. 2. Continue antibiotics. 3. Followup chest x-ray tomorrow. cc: Fede Lopez MD
[2019-04-19] MEDS: PRAVACHOL PO SCH (21:54)
[2019-04-20] MEDS: MORPHINE IV PRN ×6 (02:57→21:19)
[2019-04-20] MEDS: ZOSYN 3.375 GM in NS 50 ML IV SCH ×4 (02:58→21:20)
[2019-04-20] MEDS: XOPENEX NEB INH SCH ×6 (03:27→23:27)
[2019-04-20] MEDS: ATROVENT NEB INH SCH ×6 (03:27→23:27)
[2019-04-20] MEDS: LOPRESSOR PO SCH ×3 (06:00→21:19)
[2019-04-20] MEDS: SYNTHROID PO SCH (06:00)
[2019-04-20] MEDS: PROTONIX PO SCH ×2 (06:00→17:50)
[2019-04-20 06:02] LABS: BASO# 0.03 X1000 (0.0-0.2); BASO% 0.3 % (0.0-0.8); EOS% 11.1 % (0.0-10.0); HEMOGLOBIN 7.2 g/dL (12.0-16.0); LYMPH# 1.63 X1000 (1.2-3.4); LYMPH% 16.5 % (20.5-51.1); MCHC 31.3 g/dL (33-37); MCV 102.2 FL (81-99); MONO# 0.99 X1000 (0.11-0.59); MPV 10.2 FL (7.4-10.4); NEUT# 6.13 X1000 (1.4-6.5); NEUT% 62.1 % (42.2-75.2); PLT 291 X1000 (130-400); RBC 2.25 XMIL (4.2-5.4); RDW 14.7 % (11.5-14.5); WBC 9.88 X1000 (4.8-10.8)
--- NOTE | 2019-04-20 07:08 | Diag Imaging Result Doc PS360 ---
EXAM: CHEST-PORTABLE 04/20/2019 HISTORY: pneumonia TECHNIQUE: AP portable at 0608 COMMENT: There is cardiomegaly. There are patchy coarse opacities throughout both lungs particularly in the left costophrenic angle region. This may be slightly worse than on 04/18/2019. It is certainly better than on 03/24/2019. It is better than on 04/11/2019. IMPRESSION: Bronchopneumonia plus or minus pulmonary edema. The rather long course of this pneumonia would suggest the possibility of an atypical organism, or underlying pulmonary fibrosis and/or edema. Electronically signed by Cyril Alvarez 04/20/2019 7:06 AM
[2019-04-20] MEDS: MUCOMYST 20% INH SCH ×2 (07:35→19:25)
--- NOTE | 2019-04-20 08:19 | PROGRESS NOTE ---
DATE: 04/20/2019 SUBJECTIVE: Ms. Grossman says she feels better. Her abdomen is less painful. She remains afebrile. OBJECTIVE: Temperature 97.5 degrees, pulse 64, respirations 18, blood pressure 119/50. Pupils are equal and round. Lungs are clear in all lung fagan. Cardiovascular Examination: Regular rhythm and rate without murmur or S3. Abdomen is soft. Skin is warm and dry. Weight 169 pounds. The chest x-ray showed bronchopneumonia plus or minus pulmonary edema. Rather long course of this pneumonia would suggest possibility of atypical organism or underlying pulmonary fibrosis or edema so x-ray looks about the same. ASSESSMENT/PLAN: 1. Aspiration pneumonia. Clinically seems to be doing better. Better air and gas exchange. 2. Hypoxemic respiratory failure. Continue present orders, on Zosyn 3.375 g intravenously every 6 hours. Continue to encourage incentive spirometry. 3. Recent atrial fibrillation. She appears to be back in sinus rhythm. She has atrial paced rhythm. 4. Superior mesenteric insufficiency. Dr. Jeremias Mai placed a stent in the superior mesenteric artery. Hopefully, this will help with nutrition and her postprandial pain. 5. Sinus node dysfunction. History of permanent dual-chamber pacemaker with dysfunctional right ventricular lead. Pacemaker programmed to AAIR mode. 6. Hypertension. Blood pressure looks good. 7. Peripheral vascular disease. 8. Left bimalleolar fracture, status post repair with open reduction and internal fixation. She still has some days left at [facility]. She is talking about wanting to go home but we will have to continue physical therapy with what we can do, try and get her stronger and encourage nutrition. REVIEW OF ORDERS: She is on Pravachol 40 mg at bedtime, morphine 2 mg IV q.3 hours p.r.n., Lopressor 25 mg q.8 hours, amiodarone 200 mg a day, aspirin 81 mg a day, Celexa 40 mg a day, Klonopin 0.5 mg daily, Bentyl 20 mg p.o. 4 times a day, Cardizem drip (see if we can maybe convert that over to p.o. Cardizem), ipratropium bromide 0.5 mg inhalation q.4 hours, Xopenex inhalation 0.63 mg q.4 hours, Synthroid 75 mcg a day, Protonix 40 mg a day, tramadol 50 mg q.6 hours p.r.n., Zosyn 3.375 g IV q.6, and aspirin 325 mg at night. cc: Al Acosta MD
[2019-04-20] MEDS: BENTYL PO SCH ×4 (09:00→21:19)
[2019-04-20] MEDS: CELEXA PO SCH (09:00)
[2019-04-20] MEDS: CORDARONE PO SCH (09:00)
[2019-04-20] MEDS: KLONOPIN PO SCH (09:00)
[2019-04-20] MEDS: ASPIRIN EC PO SCH (09:00)
--- NOTE | 2019-04-20 10:00 | GENERAL SURGERY PROGRESS NOTE ---
DATE: 04/20/2019 She is postop day 1 after celiac artery stent placement. Her left groin is inspected. No significant hematoma was present. There is no evidence of bleeding. Her bandage is removed. She did the breakfast this morning uneventfully. I have no further recommendations. She can get up and move as needed. cc: Johnnie Mai MD
[2019-04-20] MEDS: PRAVACHOL PO SCH (21:19)
[2019-04-21] MEDS: MORPHINE IV PRN ×6 (00:03→21:45)
[2019-04-21] MEDS: XOPENEX NEB INH SCH ×7 (03:40→23:07)
[2019-04-21] MEDS: ATROVENT NEB INH SCH ×7 (03:40→23:07)
[2019-04-21] MEDS: ZOSYN 3.375 GM in NS 50 ML IV SCH ×4 (03:57→21:46)
[2019-04-21] MEDS: LOPRESSOR PO SCH ×3 (06:00→21:45)
[2019-04-21] MEDS: SYNTHROID PO SCH (06:00)
[2019-04-21] MEDS: PROTONIX PO SCH ×2 (06:00→17:27)
[2019-04-21] MEDS: MUCOMYST 20% INH SCH ×2 (07:33→19:25)
--- NOTE | 2019-04-21 09:09 | PROGRESS NOTE ---
DATE: 04/21/2019 SUBJECTIVE: Ms. Grossman says she feels better, less abdominal pain, still having some discomfort but it is less. Able to get some food down. OBJECTIVE: Vital signs: Temperature 98.5 degrees, pulse 61, respirations 16, blood pressure 113/49. HEENT: Pupils are equal and round. Lungs: Clear in all lung fagan. Cardiovascular: Regular rhythm and rate without murmur or S3. Abdomen: Soft. Skin: Warm and dry. Urine output is 2900 mL. ASSESSMENT AND PLAN: 1. Aspiration pneumonia, doing much better. Air and gas exchange is good. 2. Hypoxemic respiratory failure from aspiration pneumonia, on Zosyn 3.375 g IV q.6 hours. 3. Recent atrial fibrillation, back in sinus rhythm. Rate is controlled. 4. Superior mesenteric insufficiency status post stent placement per Dr. Jeremias Mai to the superior mesenteric artery. She seems to be feeling better and less pain. 5. History of sinus node dysfunction. She has a permanent dual chamber pacemaker dysfunctional right ventricular lead. Pacemaker programmed to AAIR mode. 6. Hypertension. 7. Peripheral vascular disease. 8. Left bimalleolar fracture with a cast on. REVIEW OF ORDERS: I do not see any change. I believe we can stop her Zosyn. Her last chest x- ray was yesterday, still showed some bronchopneumonia plus-minus pulmonary edema, so may have some underlying pulmonary fibrosis. I think I will stop the Zosyn tomorrow. Continue present regimen. She is on amiodarone 200 mg a day, Lopressor 25 mg q.8 hours, aspirin 81 mg a day, Celexa 40 mg a day. We will see we are on the Cardizem drip. Blood pressures look good. May convert that to p.o. Cardizem. cc: Al Acosta MD
[2019-04-21] MEDS: KLONOPIN PO SCH (09:25)
[2019-04-21] MEDS: BENTYL PO SCH ×4 (09:25→21:45)
[2019-04-21] MEDS: ASPIRIN EC PO SCH (09:26)
[2019-04-21] MEDS: CORDARONE PO SCH (09:26)
[2019-04-21] MEDS: CELEXA PO SCH (09:26)
--- NOTE | 2019-04-21 14:07 | GENERAL SURGERY PROGRESS NOTE ---
DATE: 04/21/2019 SUBJECTIVE: Ms. Grossman is doing generally well. She ate her lunch satisfactorily. Denies any abdominal pain. Her puncture site in the left groin is fine. I have no further recommendations. cc: Johnnie Mai MD
--- NOTE | 2019-04-21 18:27 | PULMONOLOGY PROGRESS NOTE ---
DATE: 04/21/2019 SUBJECTIVE: The patient is awake, alert, and conversant. She does have a slightly wet cough and reports she is producing sputum. She reports she is tolerating her food with minimal pain. OBJECTIVE: Vital Signs: Maximum temperature in the last 24 hours 100.0 degrees, current temperature 98.6 degrees, blood pressure 120/52, heart rate 63, oxygen saturation 96% on 2 liters per nasal cannula. HEENT: Pupils are equal and reactive. Oropharynx appears clear. Neck: Supple. Chest: Reveals occasional rhonchi bilaterally. Cardiac: S1, S2. Abdomen: Soft with good bowel sounds. Extremities: Reveal trace edema. IMPRESSION: A 79-year-old with: 1. Mesenteric ischemia, status post stent placement. 2. Acute hypoxemic respiratory failure. 3. Presumed aspiration. pneumonia. PLAN: 1. Continue bronchial hygiene. 2. Continue antibiotic regimen. 3. Followup chest x-ray tomorrow. 4. If the patient continues to have fluctuating infiltrates, barium swallow will be recommended. cc: Fede Lopez MD
[2019-04-21] MEDS: PRAVACHOL PO SCH (21:45)
[2019-04-22] MEDS: ZOSYN 3.375 GM in NS 50 ML IV SCH ×4 (03:30→21:17)
[2019-04-22] MEDS: MORPHINE IV PRN ×3 (03:55→21:20)
[2019-04-22] MEDS: XOPENEX NEB INH SCH ×6 (05:24→23:15)
[2019-04-22] MEDS: ATROVENT NEB INH SCH ×6 (05:24→23:15)
[2019-04-22] MEDS: PROTONIX PO SCH ×2 (06:14→17:46)
[2019-04-22] MEDS: LOPRESSOR PO SCH ×3 (06:14→21:17)
[2019-04-22] MEDS: SYNTHROID PO SCH (06:14)
--- NOTE | 2019-04-22 07:15 | Diag Imaging Result Doc PS360 ---
EXAM: CHEST-PORTABLE 04/22/2019 HISTORY: abnormal exam TECHNIQUE: AP portable at 0551 COMMENT: There is diffuse increased interstitial opacity which is particularly notable in the lingula and left lower lobe. There may be some improvement over the right base since 04/20/2019, however otherwise are has been no significant change. IMPRESSION: Slightly improved pulmonary edema versus pneumonia. Electronically signed by Cyril Alvarez 04/22/2019 7:12 AM
[2019-04-22] MEDS: MUCOMYST 20% INH SCH ×2 (07:20→19:50)
--- NOTE | 2019-04-22 08:02 | PROGRESS NOTE ---
DATE: 04/22/2019 Ms. Grossman was sleeping. She was easy to arouse. She had a good night. She says her abdomen is much less tender and not does not hurt as bad. Breathing is comfortable, so she is encouraged. OBJECTIVE: Vital Signs: Temp 99.0 degrees, pulse 69, respirations 20, blood pressure 116/38. HEENT: Pupils are equal and round. Lungs: Are clear in all lung fagan. Cardiovascular: Regular rhythm and rate without murmur or S3. Abdomen: Soft. Skin: Warm and dry. Urine output is 1700 mL. Chest x-ray: Slightly improved pulmonary edema versus pneumonia. Her urine culture grew out greater than 100,000 E. coli. ASSESSMENT AND PLAN: 1. Mesenteric ischemia, status post stent placement superior mesenteric artery, doing well. 2. Acute hypoxemic respiratory failure, which is improved. 3. Presumed aspiration pneumonia. Respiratory status is improving. Continue present antibiotics. Continue bronchial hygiene. Chest x-ray slight improvement so that is encouraging. REVIEW OF ORDERS: I do not see any change at this point. She has a left bimalleolar fracture, history of peripheral vascular disease and hypertension. Also history of sinus node dysfunction with a dual chamber pacemaker, dysfunctional right ventricular lead, is in the AAIR mode. cc: Al Acosta MD
[2019-04-22] MEDS: CORDARONE PO SCH (08:54)
[2019-04-22] MEDS: KLONOPIN PO SCH (08:54)
[2019-04-22] MEDS: ASPIRIN EC PO SCH (08:55)
[2019-04-22] MEDS: BENTYL PO SCH ×4 (08:55→21:17)
[2019-04-22] MEDS: CELEXA PO SCH (08:55)
[2019-04-22] MEDS: ULTRAM PO PRN ×2 (09:05→18:20)
--- NOTE | 2019-04-22 16:27 | PULMONOLOGY PROGRESS NOTE ---
DATE: 04/22/2019 SUBJECTIVE: The patient is awake and alert. She does report some cough and some sputum production. OBJECTIVE: Vital Signs: The patient has been afebrile for the last 24 hours. Blood pressure 138/81, heart rate 61, respiratory rate 16, oxygen saturation 100% on 2 L per nasal cannula. HEENT: Pupils are equal and reactive. Oropharynx appears clear. Neck: Neck is supple. Chest: Reveals occasional rhonchi bilaterally. Cardiac exam: S1, S2. Abdomen: Soft with good bowel sounds. Extremities: Without edema. X-RAYS: Chest x-ray reveals increased interstitial markings bilaterally with some improvements over the right base. IMPRESSION: A 79-year-old with: 1. Mesenteric ischemia, status post stent placement. 2. Aspiration pneumonia. 3. Acute hypoxemic respiratory failure. DISCUSSION: A 79-year-old with problems outlined above. The patient's oral intake has significantly improved, and she is tolerating p.o. intake without postprandial pain. RECOMMENDATIONS: 1. Continue bronchial hygiene. 2. From a pulmonary standpoint, she could be discharged on an oral antibiotic with a followup chest x-ray in 14 days. cc: Fede Lopez MD
[2019-04-22] MEDS ORDERED: CALMOSEPTINE OINTMENT TOP PRN (17:54)
[2019-04-22 18:06] LABS: BASO# 0.02 X1000 (0.0-0.2); BASO% 0.2 % (0.0-0.8); EOS# 0.68 X1000 (0.0-0.7); EOS% 7.1 % (0.0-10.0); HEMATOCRIT 22.7 % (37.0-47.0); HEMOGLOBIN 7.1 g/dL (12.0-16.0); IMM GRAN# 0.04 X1000 (0.0-0.04); IMM GRAN% 0.4 % (0.0-0.5); LYMPH% 21.8 % (20.5-51.1); MCH 30.7 PG (27-31); MCHC 31.3 g/dL (33-37); MCV 98.3 FL (81-99); MONO# 1.22 X1000 (0.11-0.59); MONO% 12.7 % (1.7-9.3); MPV 9.7 FL (7.4-10.4); NEUT# 5.58 X1000 (1.4-6.5); NEUT% 57.8 % (42.2-75.2); PLT 388 X1000 (130-400); RBC 2.31 XMIL (4.2-5.4); WBC 9.64 X1000 (4.8-10.8)
[2019-04-22] MEDS: PRAVACHOL PO SCH (21:17)
[2019-04-23] MEDS: ULTRAM PO PRN (00:48)
[2019-04-23] MEDS: ZOSYN 3.375 GM in NS 50 ML IV SCH ×4 (02:53→20:31)
[2019-04-23] MEDS: XOPENEX NEB INH SCH ×6 (03:39→23:17)
[2019-04-23] MEDS: ATROVENT NEB INH SCH ×6 (03:39→23:16)
[2019-04-23] MEDS: LOPRESSOR PO SCH ×3 (05:45→20:31)
[2019-04-23] MEDS: PROTONIX PO SCH ×2 (05:45→17:10)
[2019-04-23] MEDS: SYNTHROID PO SCH ×2 (05:45→06:13)
[2019-04-23] MEDS: MUCOMYST 20% INH SCH ×2 (07:32→19:23)
[2019-04-23] MEDS: MORPHINE IV PRN ×4 (07:57→20:36)
[2019-04-23] MEDS: ASPIRIN EC PO SCH (08:45)
[2019-04-23] MEDS: CELEXA PO SCH (08:45)
[2019-04-23] MEDS: KLONOPIN PO SCH (08:45)
[2019-04-23] MEDS: BENTYL PO SCH ×4 (08:46→20:31)
[2019-04-23] MEDS: CORDARONE PO SCH (08:46)
--- NOTE | 2019-04-23 15:58 | PROGRESS NOTE ---
DATE: 04/23/2019 SUBJECTIVE: Ms. Grossman is feeling better. Her abdomen is less painful. Breathing comfortably. She is still pretty weak, but no other complaints. OBJECTIVE: Temperature 98.2 degrees, pulse 63, respirations 17, blood pressure 125/42. Pupils are equal and round. Lungs are clear in all lung fagan. Cardiovascular: Regular rhythm and rate without murmur or S3. Output: Urine output was 1800 mL. ASSESSMENT AND PLAN: 1. Mesentery ischemia, status post stent placed to the superior mesenteric artery. Seems to be doing better. 2. Acute hypoxemic respiratory failure which has improved. 3. Presumed aspiration pneumonia. 4. General weakness and deconditioning. She seems to be making progress. 5. She does have a left bimalleolar fracture. She would like to go home. We will have to see how we do with physical therapy and occupational therapy. cc: Al Acosta MD
[2019-04-23] MEDS: MYCOSTATIN POWDER TOP SCH (20:30)
[2019-04-23] MEDS: PRAVACHOL PO SCH (20:31)
[2019-04-24] MEDS: ATROVENT NEB INH SCH ×6 (03:06→23:37)
[2019-04-24] MEDS: XOPENEX NEB INH SCH ×6 (03:07→23:36)
[2019-04-24] MEDS: ZOSYN 3.375 GM in NS 50 ML IV SCH ×4 (03:46→22:22)
[2019-04-24] MEDS: SYNTHROID PO SCH ×2 (05:25→06:04)
[2019-04-24] MEDS: PROTONIX PO SCH ×2 (05:25→17:00)
[2019-04-24] MEDS: LOPRESSOR PO SCH ×3 (05:25→22:22)
[2019-04-24] MEDS: ULTRAM PO PRN (05:28)
[2019-04-24] MEDS: MUCOMYST 20% INH SCH ×2 (08:07→19:39)
[2019-04-24] MEDS: ASPIRIN EC PO SCH (09:02)
[2019-04-24] MEDS: CORDARONE PO SCH (09:02)
[2019-04-24] MEDS: KLONOPIN PO SCH (09:02)
[2019-04-24] MEDS: CELEXA PO SCH (09:02)
[2019-04-24] MEDS: MYCOSTATIN POWDER TOP SCH ×2 (09:03→22:44)
[2019-04-24] MEDS: BENTYL PO SCH ×4 (09:03→22:22)
[2019-04-24] MEDS: MORPHINE IV PRN ×3 (09:08→22:18)
--- NOTE | 2019-04-24 10:23 | PROGRESS NOTE ---
DATE: 04/24/2019 SUBJECTIVE: Ms. Grossman feels better. Abdomen is not as tender. She is still hoping she gets to go home. I think she has another 12 days at [facility], so will continue physical therapy. OBJECTIVE: Vital Signs: Temperature 98.2 degrees, pulse 59, respirations 16, blood pressure 151/55. HEENT: Pupils are equal and round. Lungs: Clear in all lung fagan. Cardiovascular: Regular rhythm and rate without murmur or S3. Urine output 2300 mL. ASSESSMENT AND PLAN: 1. Mesenteric ischemia, status post stent placed to the superior mesenteric artery, doing better clinically. 2. Aspiration pneumonia. This seems to be improving. 3. Acute hypoxemic respiratory failure. Gas and air exchange improving, breathing comfortably, so probably continue oral antibiotic for [address] Lopez's recommendation. 4. General weakness and deconditioning. 5. History of sinus node dysfunction. She has a dual-chamber pacemaker, dysfunctional right ventricular lead. The pacemaker is in the AAIR mode. Hemodynamically seems to be doing well. 6. Hypertension. Blood pressure well controlled. 7. Peripheral vascular disease. Aware. 8. She has had a left bimalleolar ankle fracture, has a cast on her left leg. As I stated, she is hoping to go home, but she still has 12 days of [facility], so hopefully she can go home in the next couple of days. Recommendations are for antibiotic for another 2 weeks, and she did have Hemoccult-positive blood in the stool back on 04/10/2019. Will repeat another chest x- ray in the morning, but on 04/22/2019, she had slightly improved pulmonary edema. cc: Al Acosta MD
--- NOTE | 2019-04-24 20:37 | PULMONOLOGY PROGRESS NOTE ---
DATE: 04/24/2019 SUBJECTIVE: The patient is awake, alert, and conversant. She is anxious to go home. She did sit on the side of the bed today. She has a slightly wet cough. She reports she is tolerating food without significant pain. OBJECTIVE: Vital Signs: The patient has been afebrile for the last 24 hours. BP 135/52, heart rate 63, respiratory rate 23, oxygen saturation 100% on 2 L per nasal cannula. HEENT: Pupils are equal and reactive. Oropharynx is clear. Neck: Is supple. Chest: Reveals occasional rhonchi bilaterally. Cardiac exam: S1, S2. Abdomen: Is soft and without hepatosplenomegaly. Extremities: Reveal trace edema. IMPRESSION: A 79-year-old with: 1. Mesenteric ischemia. 2. Aspiration pneumonia. 3. Acute hypoxemic respiratory failure. 4. Ongoing rhonchi/wet cough. PLAN: 1. Continue current antibiotics. Recommend discharge on oral antibiotics for 14 days at the time of discharge. 2. Continue bronchial hygiene. 3. Follow-up chest x-ray tomorrow. cc: Fede Lopez MD
[2019-04-24] MEDS: PRAVACHOL PO SCH (22:22)
[2019-04-25] MEDS: XOPENEX NEB INH SCH ×6 (03:48→22:41)
[2019-04-25] MEDS: ATROVENT NEB INH SCH ×6 (03:48→22:41)
[2019-04-25] MEDS: ZOSYN 3.375 GM in NS 50 ML IV SCH ×4 (03:52→20:41)
[2019-04-25] MEDS: LOPRESSOR PO SCH ×3 (06:24→20:40)
[2019-04-25] MEDS: SYNTHROID PO SCH (06:24)
[2019-04-25] MEDS: PROTONIX PO SCH ×2 (06:24→18:05)
[2019-04-25] MEDS: MORPHINE IV PRN ×2 (06:28→10:18)
--- NOTE | 2019-04-25 07:01 | Diag Imaging Result Doc PS360 ---
EXAM: CHEST-PORTABLE 04/25/2019 HISTORY: pneumonia TECHNIQUE: AP portable at 0550 COMMENT: There is ill-defined opacity in the left perihilar, left lower lobe and right upper lobe regions. The latter appears slightly worse than on 04/22/2019. The heart size is not enlarged. IMPRESSION: Pulmonary edema and/or pneumonia. Electronically signed by Cyril Alvarez 04/25/2019 6:58 AM
[2019-04-25 08:35] LABS: AGAP 10; BUN 8 mg/dL (8-22); CALCIUM 8.6 mg/dL (8.8-10.2); CHLORIDE 102 mmol/L (98-107); COSMO 277; CREATININE 0.8 mg/dL (0.5-0.9); ESTIMATED GFR > 60; GLUCOSE 85 mg/dL (70-104); MAGNESIUM 1.7 mg/dL (1.5-2.7); POTASSIUM 3.9 mmol/L (3.5-5.1); SODIUM 140 mmol/L (136-145); TCO2 28 mmol/L (25-35)
[2019-04-25 08:50] LABS: BASO# 0.05 X1000 (0.0-0.2); BASO% 0.5 % (0.0-0.8); EOS# 1.19 X1000 (0.0-0.7); EOS% 11.4 % (0.0-10.0); HEMATOCRIT 24.5 % (37.0-47.0); HEMOGLOBIN 7.6 g/dL (12.0-16.0); IMM GRAN# 0.04 X1000 (0.0-0.04); IMM GRAN% 0.4 % (0.0-0.5); LYMPH# 1.57 X1000 (1.2-3.4); LYMPH% 15.1 % (20.5-51.1); MCH 30.4 PG (27-31); MONO# 1.04 X1000 (0.11-0.59); MPV 9.9 FL (7.4-10.4); NEUT# 6.54 X1000 (1.4-6.5); NEUT% 62.6 % (42.2-75.2); PLT 450 X1000 (130-400); RDW 15.3 % (11.5-14.5); WBC 10.43 X1000 (4.8-10.8)
[2019-04-25] MEDS: BENTYL PO SCH ×4 (09:52→20:40)
[2019-04-25] MEDS: ASPIRIN EC PO SCH (09:52)
[2019-04-25] MEDS: CELEXA PO SCH (09:53)
[2019-04-25] MEDS: CORDARONE PO SCH (09:53)
[2019-04-25] MEDS: KLONOPIN PO SCH (09:55)
[2019-04-25] MEDS: MUCOMYST 20% INH SCH ×2 (11:36→19:40)
[2019-04-25] MEDS: MYCOSTATIN POWDER TOP SCH ×2 (16:00→20:41)
[2019-04-25] MEDS: ULTRAM PO PRN (18:07)
--- NOTE | 2019-04-25 18:16 | PROGRESS NOTE ---
DATE: 04/25/2019 INTERVAL HISTORY: Her vitals are unremarkable. She denies any new complaints. Her son is at bedside. I discussed with them about findings of pneumonia and possible discharge to a [facility] facility. Answered all of their questions. SUBJECTIVE: Patient denies any chest pain or shortness of breath. She is still coughing. She denies any trouble swallowing, though, and she has been on a mechanical soft diet. VITALS: Temperature 98.6 degrees, pulse 62, respiratory rate 18, blood pressure 130/59, saturating 95% on 1 L nasal cannula to room air. PHYSICAL EXAMINATION: General: Does not appear in any acute distress. HEENT: Oral cavity is moist. Respiratory: She does have decreased air entry with inspiratory crackles and rhonchi in the bilateral infrascapular regions. Cardiovascular: S1, S2 normal. She has a paced rhythm on bedside telemetry. No murmur, rub, or gallop. Abdomen: Soft, nontender. No lower extremity edema. She has a urinary catheter which I placed an order to remove. LABS: Suggestive of no leukocytosis, normocytic anemia, [id number] platelet count. Normal electrolytes. No new microbiological data. IMAGING: Chest x-ray suggests right upper lobe and left lower lobe infiltrates. ASSESSMENT AND PLAN: 1. Acute hypoxic respiratory failure due to bilateral right upper lobe and left lower lobe aspiration pneumonia. Continue intravenous Zosyn and changed to p.o. levofloxacin. Plan is to give her an additional 14 days of antibiotics. Continue bronchial hygiene with acetylcysteine, levalbuterol and ipratropium nebulization. 2. Mesenteric ischemia leading to chronic postprandial abdominal pain. She is status post celiac artery stent on 04/19/2019. Continue tramadol for pain management, and my plan is to discontinue morphine. 3. History of gastric ulcer leading to acute blood loss anemia. Continue proton pump inhibitors b.i.d. She is status post 2 units of packed red blood cells during this hospital admission. 4. Atrial fibrillation with rapid ventricular rate and history of pacemaker. Currently paced rhythm. Continue metoprolol, amiodarone and aspirin. Considering her bleeding gastric ulcer requiring blood transfusion, she is not a candidate for anticoagulation at the moment. I would advise her to follow up with her regular doctor and discuss about it in future. 5. Continue pravastatin for hyperlipidemia, clonazepam and citalopram for anxiety, dicyclomine for abdominal cramps, and levothyroxine for hypothyroidism. DISPOSITION: I am anticipating discharge in 24-48 hours at [facility] facility. Plan of care discussed with the patient and her son at bedside. All of their questions been answered. cc: Ramsey Gamez MD
[2019-04-25] MEDS: PRAVACHOL PO SCH (20:40)
[2019-04-25] MEDS: TYLENOL PO PRN (20:41)
--- NOTE | 2019-04-25 22:16 | PULMONOLOGY PROGRESS NOTE ---
DATE: 04/25/2019 SUBJECTIVE: The patient is awake, alert. She has rhonchi on cough. OBJECTIVE: Vital Signs: The patient has been afebrile for the last 24 hours. Blood pressure 151/57, heart rate 61, respiratory rate 20. Oxygen saturation 98% on 2 L per nasal cannula. HEENT: Pupils are equal and reactive. Oropharynx appears clear. Neck: Supple. Chest: Reveals scattered rhonchi bilaterally. Cardiac: S1, S2. Abdomen is soft and without hepatosplenomegaly. Extremities: Without edema. LABORATORIES: Chest x-ray reveals slight worsening in the upper lobe infiltrates. IMPRESSION: A 79-year-old with: 1. Aspiration pneumonia. 2. Mesenteric ischemia status post stent placement with resolution of abdominal pain. 3. Acute hypoxemic respiratory failure. 4. Failure to clear a wet bronchitic cough. RECOMMENDATIONS: 1. Continue current antibiotics with anticipation of oral antibiotics for 14 days at the time of discharge. 2. Continue bronchial hygiene. 3. With clinical presentation, we will pursue a barium swallow to rule out aspiration with oral intake. cc: Fede Lopez MD
[2019-04-26] MEDS: ATROVENT NEB INH SCH ×4 (03:40→15:57)
[2019-04-26] MEDS: XOPENEX NEB INH SCH ×4 (03:40→15:56)
[2019-04-26] MEDS: ULTRAM PO PRN ×2 (03:51→15:43)
[2019-04-26] MEDS: ZOSYN 3.375 GM in NS 50 ML IV SCH (03:51)
[2019-04-26] MEDS: LOPRESSOR PO SCH ×2 (05:21→15:37)
[2019-04-26] MEDS: PROTONIX PO SCH (05:22)
[2019-04-26] MEDS: SYNTHROID PO SCH (06:04)
[2019-04-26] MEDS: MUCOMYST 20% INH SCH (07:40)
[2019-04-26] MEDS ORDERED: LEVAQUIN PO SCH (09:00)
[2019-04-26] MEDS: CELEXA PO SCH (09:41)
[2019-04-26] MEDS: BENTYL PO SCH ×2 (09:41→14:29)
[2019-04-26] MEDS: KLONOPIN PO SCH (09:41)
[2019-04-26] MEDS: CORDARONE PO SCH (09:42)
[2019-04-26] MEDS: ASPIRIN EC PO SCH (09:42)
[2019-04-26] MEDS: MYCOSTATIN POWDER TOP SCH (09:43)
[2019-04-26] MEDS: TYLENOL PO PRN (09:54)
[2019-04-26 15:29] VITALS: BP 161/66
--- NOTE | 2019-04-26 15:44 | Diag Imaging Result Doc PS360 ---
EXAM: BA SWALLOW W/VIDEO SPEECH THER 04/26/2019 HISTORY: recurrent pneumonia and wet cough TECHNIQUE: Modified barium swallow, 134 images 33 seconds fluoroscopy time, 97 mGy. COMMENT: The patient was able to swallow without difficulty. There is slight laryngeal penetration on rapid swallowing of multiple boluses. Otherwise there is no evidence of aspiration. There is mild presbyesophagus in the thoracic esophagus. There is a small hiatal hernia. IMPRESSION: No evidence of significant aspiration. Electronically signed by Cyril Alvarez 04/26/2019 3:42 PM
--- NOTE | 2019-04-26 16:52 | DISCHARGE SUMMARY ---
ADMISSION DATE: 04/10/2019 DISCHARGE DATE: 04/26/2019 DISCHARGE DISPOSITION: [facility]. DISCHARGE CONDITION: The patient is alert and oriented x3. Denies any chest pain, shortness of breath or cough. She has been eating soft diet well. Her modified barium swallow had suggested to keep her on mechanical soft diet and outpatient gastroenterology followup with aspiration precautions. DISCHARGE DIAGNOSES: 1. Acute hypoxic respiratory failure. 2. Right upper lobe and bilateral lower lobe aspiration pneumonia. 3. Mesenteric ischemia status post celiac artery stent on April 19. 4. Gastric ulcer. 5. Acute blood loss anemia. 6. Atrial fibrillation with rapid ventricular rate. 7. Acute kidney injury. OTHER DIAGNOSES: 1. Hyperlipidemia. 2. Anxiety. 3. Abdominal cramps. 4. Hypothyroidism. 5. Chronic back pain. 6. Chronic gastroesophageal reflux disease. 7. Symptomatic bradycardia status post pacemaker. DISCHARGE MEDICATIONS: 1. Pravastatin 40 mg at nighttime. 2. Magnesium hydroxide 30 mL daily as needed for constipation. 3. Levothyroxine 75 mcg daily. 4. Metoprolol 25 mg p.o. every 8 hours. 5. Aspirin 81 mg daily. 6. Ipratropium bromide 0.5 mg inhaled every 6 hours. 7. Dicyclomine 20 mg p.o. 4 times a day. 8. Clonazepam 0.5 mg daily. 9. Amiodarone 200 mg daily. 10. Levofloxacin 750 mg p.o. daily for 14 days for pneumonia. 11. MiraLAX 17 g p.o. daily for constipation. 12. Acetylcysteine 20% 3 mL inhaled routine b.i.d. 13. Pantoprazole 40 mg p.o. b.i.d. for 30 days and then once daily after that. 14. Acetaminophen 650 mg p.o. every 6 hours as needed for pain less than 7 on 10. 15. Tramadol 50 mg every 6 hours as needed for pain more than 7 on 10, 30 tablets have been prescribed. 16. Levalbuterol nebulization 0.60 mg inhaled routine q.6 hours. PROCEDURES DURING HOSPITAL ADMISSION: 1. The patient underwent endoscopy on 04/11/2019 which had detected clean based about 1 cm gastric ulcer which was nonbleeding and biopsies were taken. She was advised to avoid NSAIDs. 2. On 04/10/2019 she underwent ultrasound-guided right common femoral vein central line placement. 3. On 04/19/2019 she underwent selective celiac and selective superior mesenteric artery arteriogram and selective celiac artery stent placement. VITALS: At the time of discharge: Temperature 98.5 degrees, pulse 60, respiratory 24, blood pressure 160/60, saturating 95% on room air. PHYSICAL EXAMINATION: Patient does not appear in any acute distress. HEENT: Oral cavity is moist. Lungs: Air entry bilaterally equal. No wheeze. She does have inspiratory crackles bilateral infrascapular region. Cardiovascular: S1, S2 normal. She has a paced rhythm on bedside telemetry. No murmur, rub, or gallop. Abdomen: Soft, nontender. Extremities: No lower extremity edema. She does have left lower extremity cast for history of ankle fracture. NEUROLOGIC: The patient is alert and oriented x3. LABS: At the time of discharge, WBC 10,000 hemoglobin 7.6, platelet 450,000, BUN 8, creatinine 0.8, magnesium 1.7, potassium 3.9, sodium 140. SIGNIFICANT MICROBIOLOGY: Stool occult blood test on admission was positive. No blood cultures were drawn. SIGNIFICANT IMAGING: During hospital admission: 1. Abdomen and pelvis CT on April 10 had bilateral pleural effusions, pulmonary edema and pneumonia with anasarca with possibility of mild enterocolitis. 2. Chest x-ray on April 11 had worsening central infiltrates compatible with pulmonary edema. 3. Echocardiogram on April 13 had suggested left ventricular function was hyperdynamic with ejection fraction of 70 -75% without any regional wall motion abnormalities. Densely calcified mitral annulus. 4. Chest x-ray on 04/25/2019 had suggested pulmonary edema and/or pneumonia. HOSPITAL COURSE SUMMARY: Ms. Grossman is a 79-year-old lady with above-mentioned past medical history, who came in on 04/10/2019 for chief complaints of anemia and outpatient hemoglobin of 6. It was microcytic and there was gastrointestinal blood loss suspected. She received 2 units of blood transfusion and since her fecal occult blood test was positive, underwent EGD which had detected a clean base gastric ulcer. After her acute blood loss anemia, her hospital course was marked by development of acute hypoxic respiratory failure due to pulmonary edema, bilateral pneumonia requiring intravenous antibiotics and intravenous Lasix. At the time of discharge. She is breathing well on room air and she had completed complete 14 days of antibiotics. She had also developed atrial fibrillation with rapid ventricular rate and is being discharged on amiodarone and metoprolol. Her anticoagulation was held considering bleeding ulcer and she was discharged only on aspirin. Considering patient's symptoms of postprandial abdominal pain and CT scan finding of intra- abdominal artery stenosis, she underwent a selective angiogram and celiac artery stent placement, following which she was tolerating diet well. Considering patient had a risk factor for aspiration, she had underwent modified barium swallow on 04/26/2019, which had suggested probability of diffuse esophageal spasm. The patient was advised to keep aspiration precautions and mechanical soft diet with thin liquids only with cups without use of straw. DISCHARGE INSTRUCTIONS: 1. Follow-up repeat CBC, CMP in 3 days. 2. Follow-up EKG for QTc interval monitoring in 5 days. 3. Follow up with GI doctor within 4 weeks. I discussed about repeat EGD ulcer healing as well as esophageal spasm. 4. Follow up with lung doctor within 4 weeks. Discussed about resolution of pneumonia. 5. More than 30 minutes were spent in discharging the patient. All of the patient's questions have been answered. cc: Ramsey Gamez MD
== END 2019-04-26 18:24 | DRG 356 ==
LOC: SUPCPDRO → ED 11:08 → SUATTDRO 14:20 → ICU 14:20 → 4N 04-12 15:49 → ICU 04-13 01:01 → 3S 04-17 18:27 → 3N 04-24 16:20
PROVIDERS: ATTEND Internal Medicine
CPT/HCPCS: 36200; 36430; 71010; 71045; 74177; 74230; 75625; 80048; 80053; 81001; 82270; 82784; 82948; 83735; 84100; 84443; 85014; 85018; 85025; 85027; 86850; 86900; 86901; 86920; 88305; 88312; 92526; 92611; 93005; 93010; 93306; 94640; 94760; 94761; 94799; 97110; 97162; 97167; 97530; 97535; 99285; A9270; C1751; C1760; C9113; J0330; J0456; J1160; J1170; J1644; J1650; J1940; J2060; J2270; J2405; J2543; J3475; J7030; J7050; P9016; Q9967; S0164; XXXXX

== ENCOUNTER 2019-06-21 10:04 | Inpatient (IN) ==
--- NOTE | 2019-06-21 10:24 | PROVIDER DOCUMENTATION ---
HPI-General Adult - General Stated Complaint: FALL, LEFT HIP PAIN Time Seen by Provider: 06/21/19 10:15 Source: patient Allergies/Adverse Reactions: Patient Allergies Allergy/AdvReac Type Severity Reaction Status Date / Time No Known Allergies Allergy Verified 11/25/18 12:55 Home Medications: Home Medication List Medication Instructions Recorded Confirmed Last Taken Type Levothyroxine [Synthroid] 75 microgm PO DAILY 05/29/17 04/10/19 11/24/18 08:00 History Pravastatin Sodium 40 mg PO QHS 05/29/17 04/10/19 11/24/18 21:00 History Dicyclomine [Bentyl] 20 mg PO 4XDAY capsule 06/01/17 04/10/19 11/24/18 21:00 Rx Polyethylene Glycol 3350 [Miralax] 17 gm PO DAILY #20 powd.pack 03/30/19 04/10/19 Unknown Rx Magnesium Hydroxide [Milk of 30 ml PO DAILY PRN 04/10/19 04/10/19 Unknown History Magnesia] Acetaminophen [Tylenol] 650 mg PO Q6H PRN PRN tab 04/26/19 Unknown Rx Acetylcysteine 20% [Mucomyst 20%] 3 ml INH RTBID vial 04/26/19 Unknown Rx Amiodarone [Cordarone] 200 mg PO DAILY tab 04/26/19 Unknown Rx Aspirin EC 81 mg PO DAILY tab 04/26/19 Unknown Rx Clonazepam 0.5 mg PO DAILY #20 tab 04/26/19 Unknown Rx Ipratropium Mobile Neb [Atrovent 0.5 mg INH Q6H neb 04/26/19 Unknown Rx Neb] Levalbuterol Neb [Xopenex Neb] 0.63 mg INH Q6H neb 04/26/19 Unknown Rx Metoprolol [Lopressor] 25 mg PO Q8HR tab 04/26/19 Unknown Rx Pantoprazole [Protonix] 40 mg PO 0600,1800 tab 04/26/19 Unknown Rx Tramadol [Ultram] 50 mg PO Q6H PRN PRN #30 tab 04/26/19 Unknown Rx - History of Present Illness -Gen Adult Nature of Presenting Problems: Pt. is 79 yof that presents with c/o fall last night. She states her left hip is hurting and her left leg to her ankle. She reports hitting her head but denies any LOC or taking any blood thinners. She does take an ASA. Pt. reports her walker got away from her. She states she recently had left ankle surgery by Dr. Paige. Location of Pain/Injury: reports: pelvis (Left hip), lower extremity (Left leg). denies: none, head, face, mouth, neck, chest, upper extremity, hand(s), abdomen, back, genitalia, feet, upper body, lower body, generalized, other Pain Radiation: reports: no radiation. denies: arm(s), back, buttocks, chest, epigastric, feet, groin, jaw, flank (L), legs (lower), LLQ, LUQ, neck, periumbilical, flank (R), RLQ, RUQ, shoulder(s), scapula, scrotal, sternal notch, suprapubic, legs (upper), urethral, vaginal, other Quality of Pain: reports: aching. denies: burning, pressure, throbbing, tightness Severity: reports: mild. denies: moderate, severe Onset/Duration: reports: abrupt, last night Timing: reports: still present. denies: improving, intermittent, getting worse Context/Activities at Onset: reports: light activity, recent trauma history. denies: none, moderate activity, vigorous activity, recent emotional stress, recent physical stress, possible bad food, cold exposure, eating, out of country travel, rest, sleep, sexual activity, other Modifying Factors: improves with: immobilization. worse with: movement Associated Symptoms: reports: joint pain. denies: denies symptoms, anxiety, arm pain, back/neck pain, chest pain, constipation, cough, diaphoresis, diarrhea, dizziness, EENT symptoms, fatigue, fever/chills, genitourinary problems, headaches, heartburn, loss of appetite, malaise, muscle aches, sinus congestion/drainage, nausea, rash, seizure, shortness of breath, sensory/motor loss, pain with inspiration, swelling/mass in abdomen, syncope, vomiting, weakness, trouble walking, other Similar Symptoms Previously?: Yes Recently seen or treated by another doctor?: No Review of Systems - Adult - REVIEW OF SYSTEMS - ADULT Constitutional: reports: no symptoms reported Eyes: reports: no symptoms reported Ears, Nose, Mouth & Throat: reports: no symptoms reported Cardiovascular: reports: no symptoms reported Respiratory: reports: no symptoms reported Gastrointestinal: reports: no symptoms reported Genitourinary: reports: no symptoms reported Musculoskeletal: reports: see HPI, joint pain. denies: bone pain, joint swelling, neck pain Integumentary: reports: no symptoms reported Neurological: reports: no symptoms reported Psychiatric: reports: no symptoms reported Past History - Adult - PAST MEDICAL HISTORY-ADULT Review of Records: reports: Old Records Reviewed, Nursing Assessment Review, Medications Reviewed, Social history reviewed & non-contributory. Major Childhood Illnesses: reports: denies history Cardiovascular: reports: HTN Respiratory: reports: denies history Gastrointestinal: reports: GERD Obstetrical/Gynecological: reports: denies history Genitourinary: reports: denies history Musculoskeletal: reports: denies history Neurological: reports: denies history Psychiatric: reports: anxiety Endocrine/Immune: reports: denies history Other Conditions: reports: denies history - IMMUNIZATION STATUS Childhood Immunizations: See Nurse Assessment Flu Vaccine: See Nurse Assessment - FAMILY HISTORY Family History: reviewed, not pertinent - SOCIAL HISTORY Smoking: non-smoker Physical Exam-General - PHYSICAL EXAM-ADULT Initial Vital Signs Reviewed: Yes - CONSTITUTIONAL General Appearance: alert, no apparent distress. negative: anxious, obtunded, combative - EYES Eyes: PERRL/EOMI, pink conjunctivae - HEAD, EARS, NOSE, MOUTH & THROAT HENMT: normocephalic/atraumatic, moist mucous membranes - NECK Neck: non-tender, full range of motion, supple, normal inspection - RESPIRATORY Respiratory: lungs clear, normal breath sounds - CARDIOVASCULAR Cardiovascular: normal peripheral pulses, regular rate, rhythm, no edema - GASTROINTESTINAL (ABDOMEN) Abdominal Exam: normal bowel sounds, non tender, soft - LYMPHATIC Lymphatic: no adenopathy - MUSCULOSKELETAL Back Exam: normal inspection, no CVA tenderness, no vertebral tenderness Extremity: deformity (left hip, the left leg is shortened and rotated outward), tenderness (Left hip). negative: erythema, inflammation, swelling Peripheral Pulses: radial (R): 2+, radial (L): 2+ - SKIN Integumentary: normal color, normal turgor, warm/dry - NEUROLOGIC Neurologic: grossly normal, no motor/sensory deficits - PSYCHIATRIC Psych/Mental Status: normal mood/affect, normal thought content, normal thought process, oriented x 3. negative: anxious, paranoid, tearful Progress - PLAN OF CARE/RESULTS Progress/Plan/Lab Results: Orders Category Date Time Status ANKLE COMPLETE LEFT [RAD] Stat Exams 06/21/19 10:[address] HEAD/C-SPINE W/O CONTRAST [CT] Stat Exams 06/21/19 10:[address] PELVIS W/O CONTRAST [CT] Stat Exams 06/21/19 10:19 Ordered KNEE 3 VIEWS LEFT [RAD] Stat Exams 06/21/19 10:19 Ordered - XRAY 1 XRAY: Left XRAY Study: Ankle [facility] - [address], [address], [place] [address] [facility] - [address] [place] [address] Department of Imaging Patient: ARSEN DELGADILLO Date: 06/21/19MR#: [id number] : 2ADM Status: PRE ERAcct#: [id number] Age/Sex: 79/FRoom/Bed: Loc: ED Ordering Physician: Felicia Melendez Family Physician: Johnnie Hampton Reason for Procedure: pain post fall with recent surgery ___ Signed ANKLE COMPLETE LEFT - 06/21/2019 INDICATION: pain post fall with recent surgery TECHNIQUE: Three views COMPARISON: 03/24/2019 FINDINGS: There are two screws in the medial malleolus. There is a lateral malleolus side plate. These are in good position with no evidence of hardware fracture or loosening. The fibular fracture is nearly healed. The medial malleolus fracture is still visible. There is some new indeterminate bony resorption of the calcaneus at the Achilles tendon insertion. In this area there is some pre-existing dystrophic calcification compatible with calcific tendinitis. There is also some degenerative spurring at the plantar fascial origin. There is some trabecular disruption within the posterior calcaneus itself. IMPRESSION: 1. New bony erosions at the superior and posterior calcaneus. 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 Follow-up recommended. 2. No complication at the medial and lateral malleolus fracture surgery sites. Electronically signed by Cristiano Grant 06/21/2019 11:17 AM 06/21/19 1117 Interpreting Physician: Cristiano Grant MD Dictated Date/Time: 06/21/19 1115 cc: Felicia Melendez; Johnnie Hampton) XRAY Interpretation: See note 2 XRAY: Left XRAY Study: Knee ([facility] - [address] [place] [address], [address], [place] [address] [facility] - [address] [place] [address] Department of Imaging Patient: ARSEN DELGADILLO Date: 06/21/19MR#: [id number] : 1940DM Status: PRE ERAcct#: [id number] Age/Sex: 79/FRoom/Bed: Loc: ED Ordering Physician: Felicia Melendez Family Physician: Johnnie Hampton Reason for Procedure: pain post fall Signed KNEE 3 VIEWS LEFT - 06/21/2019 INDICATION: pain post fall TECHNIQUE: Three views COMPARISON: None FINDINGS: There is a left total knee replacement in good position. No hardware fracture or loosening. There is a minimally displaced fracture through the proximal fibular shaft. There is significant new bone formation with partial bony bridging. No joint effusion. IMPRESSION: Healing proximal fibular fracture. No complication at the prosthesis. Electronically signed by Cristiano Grant 06/21/2019 11:15 AM 06/21/19 1115 Interpreting Physician: Cristiano Grant MD Dictated Date/Time: 06/21/19 1108 cc: Felicia Melendez; Johnnie Hampton) XRAY Interpretation: See note 3 XRAY Study: Chest ([facility] - [address], [address], [place] [address] [address] Department of Imaging Patient: MODESTA DELGADILLOADM Date: 06/21/19MR#: [id number] : 1940DM Status: PRE ERAcct#: [id number] Age/Sex: 79/FRoom/Bed: Loc: ED Ordering Physician: Felicia Melendez Family P hysician: Johnnie Hampton Reason for Procedure: FALL ___ Signed CHEST-1 VIEW - 06/21/2019 INDICATION: FALL COMPARISON: 04/25/2019 FINDINGS: Stable pacemaker. Stable diffuse pulmonary vascular congestion. There is decrease in the hazy bilateral infiltrates/pulmonary edema. There are still curly B lines indicating interstitial edema. Small nodular infiltrate at the lateral left midlung. No pneumothorax or large pleural effusion. Heart size is top normal. IMPRESSION: Overall improved from prior. Cardiomegaly and hazy bilateral infiltrates suggesting pulmonary edema. Electronically signed by Cristiano Grant 06/21/2019 11:18 AM 06/21/19 1118 Interpreting Physician: Cristiano Grant MD Dictated Date/Time: 06/21/19 1117 cc: Felicia Melendez; Johnnie Hampton) XRAY Interpretation: See note - CT/MRI 1 CT Study: Pelvis ([facility] - [address], [address], [place] [address] [facility] - [address] [place] [address] Department of Imaging Patient: MODESTA DELGADILLOADM Date: 06/21/19MR#: [id number] : 1940DM Status: PRE ERAcct#: [id number] Age/Sex: 79/FRoom/Bed: Loc: ED Ordering Physician: Felicia Melendez Family Physician: Johnnie Hampton Reason for Procedure: Fall with left hip pain ___ Signed EXAM: CT PELVIS W/O CONTRAST 06/21/2019 HISTORY: Fall with left hip pain TECHNIQUE: This exam was performed using automated exposure control, adjustment of mA or kV according to patient size, and/or use of iterative reconstruction technique. COMMENT: There are degenerative disc changes at L4-5 and L5-S1. There is bilateral spondylolysis at L5. There is grade 1 anterolisthesis of L5 on S1. There is a fracture of the left femoral neck. There is some degree of impaction. The right femur appears to be intact. IMPRESSION: Left femoral neck fracture. Spondylolysis and spondylolisthesis at L5-S1. Electronically signed by Cyril Alvarez 06/21/2019 11:20 AM 06/21/19 1120 Interpreting Physician: Cyril Alvarez MD Dictated Date/Time: 06/21/19 1118 cc: Felicia Melendez; Johnnie Hampton) CT Results: See note 2 CT Study: Cervical Spine ([facility] - [address] [facility], [address], [place] [address] [facility] - [address] [place] [address] Department of Imaging Patient: ARSEN DELGADILLO Date: 06/21/19MR#: [id number] : 1940DM Status: PRE ERAcct#: [id number] Age/Sex: 79/FRoom/Bed: Loc: ED Ordering Physician: Felicia Melendez Family Physician: Johnnie Hampton Reason for Procedure: Fall and hit head ___ Signed EXAM: CT HEAD/C-SPINE W/O CONTRAST 06/21/2019 HISTORY: Fall and hit head TECHNIQUE: This exam was performed using automated exposure control, adjustment of mA or kV according to patient size, and/or use of iterative reconstruction technique. COMMENT: There is patchy abnormal lucency throughout the white matter of both hemispheres with some cortical encephalomalacia present in the right parietal lobe. This was also present at the time the previous study of 03/21/2019. There is no evidence of bleed or abnormal extra-axial fluid collection. There are calcifications in the globus pallidus on the right. Overall there has been no significant change in the appearance of the brain since the previous study. The visualized paranasal sinuses are clear and the calvarium is intact. Cervical spine: There are no previous studies. There is no evidence of acute fracture or subluxation. There are emphysematous and probable fibrotic changes in the lung apices bilaterally. There is suggested degeneration with loss of height and posterior osteophyte formation at C4-5 and C5-6 and to some extent at the C6-7 level. The facets are aligned. There are degenerative changes in the anterior atlantoaxial joint. IMPRESSION: No evidence of acute intracranial or cervical spine disease. Electronically signed by Cyril Alvarez 06/21/2019 11:17 AM 06/21/19 1117 Interpreting Physician: Cyril Alvarez MD Dictated Date/Time: 06/21/19 1113 cc: Felicia Melendez; Johnnie Hampton), Head Impression: See EMR Report CT Results: See note - CONSULTS/PCP/HOSPITALIST Notification #1 *Consult/PCP/Hospitalist*: Dr. Shell Time Discussed: 11:32 Reason/Comments: Consult Consult Disposition: other (Admit to hospitilist and keep NPO after midnight) #2 Consult: Anel vaughan Dr. Time Discussed: 11:43 Reason/Comments: Admission Consult Disposition: Will see in ED, Admit Departure - Departure Date of Disposition Decision: 06/21/19 Time of Disposition Decision: 11:33 DIAGNOSIS: Hip fracture Qualifiers: Encounter type: initial encounter Fracture type: closed Laterality: left Qualified Code(s): S72.002A - Fracture of unspecified part of neck of left femur, initial encounter for closed fracture Disposition: ADMITTED INPATIENT 09 Certified Medical Emergency: Emergent Condition: Stable Referrals and Follow-Ups: Johnnie Hampton [Primary Care Provider] - - Critical Care Note This patient required my direct & personal management of CC.: No Attestation - Physician/ SYLVIA Attestation Patient care was provided by Advanced Practice Provider:: Yes Advanced Practice Provider:: Felicia Melendez Advanced Practice Provider documentation review:: The Mid-level provider documentation, treatment plan and medical decision making was reviewed by the physician who agrees with all treatment and medical decision making by the MLP. The physician spent face to face time with patient:: No Advanced Practice Provider documentation review:: Supervising physician onsite and consulted in the evaluation and care of this patient. The physician did not have a face to face encounter with the patient.
--- NOTE | 2019-06-21 11:17 | Diag Imaging Result Doc PS360 ---
KNEE 3 VIEWS LEFT - 06/21/2019 INDICATION: pain post fall TECHNIQUE: Three views COMPARISON: None FINDINGS: There is a left total knee replacement in good position. No hardware fracture or loosening. There is a minimally displaced fracture through the proximal fibular shaft. There is significant new bone formation with partial bony bridging. No joint effusion. IMPRESSION: Healing proximal fibular fracture. No complication at the prosthesis. Electronically signed by Cristiano Grant 06/21/2019 11:15 AM
--- NOTE | 2019-06-21 11:20 | Diag Imaging Result Doc PS360 ---
EXAM: CT HEAD/C-SPINE W/O CONTRAST 06/21/2019 HISTORY: Fall and hit head TECHNIQUE: This exam was performed using automated exposure control, adjustment of mA or kV according to patient size, and/or use of iterative reconstruction technique. COMMENT: There is patchy abnormal lucency throughout the white matter of both hemispheres with some cortical encephalomalacia present in the right parietal lobe. This was also present at the time the previous study of 03/21/2019. There is no evidence of bleed or abnormal extra-axial fluid collection. There are calcifications in the globus pallidus on the right. Overall there has been no significant change in the appearance of the brain since the previous study. The visualized paranasal sinuses are clear and the calvarium is intact. Cervical spine: There are no previous studies. There is no evidence of acute fracture or subluxation. There are emphysematous and probable fibrotic changes in the lung apices bilaterally. There is suggested degeneration with loss of height and posterior osteophyte formation at C4-5 and C5-6 and to some extent at the C6-7 level. The facets are aligned. There are degenerative changes in the anterior atlantoaxial joint. IMPRESSION: No evidence of acute intracranial or cervical spine disease. Electronically signed by Cyril Alvarez 06/21/2019 11:17 AM
--- NOTE | 2019-06-21 11:20 | Diag Imaging Result Doc PS360 ---
ANKLE COMPLETE LEFT - 06/21/2019 INDICATION: pain post fall with recent surgery TECHNIQUE: Three views COMPARISON: 03/24/2019 FINDINGS: There are two screws in the medial malleolus. There is a lateral malleolus side plate. These are in good position with no evidence of hardware fracture or loosening. The fibular fracture is nearly healed. The medial malleolus fracture is still visible. There is some new indeterminate bony resorption of the calcaneus at the Achilles tendon insertion. In this area there is some pre-existing dystrophic calcification compatible with calcific tendinitis. There is also some degenerative spurring at the plantar fascial origin. There is some trabecular disruption within the posterior calcaneus itself. IMPRESSION: 1. New bony erosions at the superior and posterior calcaneus. 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 Follow-up recommended. 2. No complication at the medial and lateral malleolus fracture surgery sites. Electronically signed by Cristiano Grant 06/21/2019 11:17 AM
--- NOTE | 2019-06-21 11:21 | Diag Imaging Result Doc PS360 ---
CHEST-1 VIEW - 06/21/2019 INDICATION: FALL COMPARISON: 04/25/2019 FINDINGS: Stable pacemaker. Stable diffuse pulmonary vascular congestion. There is decrease in the hazy bilateral infiltrates/pulmonary edema. There are still curly B lines indicating interstitial edema. Small nodular infiltrate at the lateral left midlung. No pneumothorax or large pleural effusion. Heart size is top normal. IMPRESSION: Overall improved from prior. Cardiomegaly and hazy bilateral infiltrates suggesting pulmonary edema. Electronically signed by Cristiano Grant 06/21/2019 11:18 AM
--- NOTE | 2019-06-21 11:22 | Diag Imaging Result Doc PS360 ---
EXAM: CT PELVIS W/O CONTRAST 06/21/2019 HISTORY: Fall with left hip pain TECHNIQUE: This exam was performed using automated exposure control, adjustment of mA or kV according to patient size, and/or use of iterative reconstruction technique. COMMENT: There are degenerative disc changes at L4-5 and L5-S1. There is bilateral spondylolysis at L5. There is grade 1 anterolisthesis of L5 on S1. There is a fracture of the left femoral neck. There is some degree of impaction. The right femur appears to be intact. IMPRESSION: Left femoral neck fracture. Spondylolysis and spondylolisthesis at L5-S1. Electronically signed by Cyril Alvarez 06/21/2019 11:20 AM
[2019-06-21 12:29] LABS: URINE SOURCE CLEAN CATCH
[2019-06-21 12:32] LABS: BASO# 0.05 X1000 (0.0-0.2); BASO% 0.5 % (0.0-0.8); EOS% 6.6 % (0.0-10.0); HEMATOCRIT 31.7 % (37.0-47.0); HEMOGLOBIN 10.3 g/dL (12.0-16.0); IMM GRAN# 0.02 X1000 (0.0-0.04); IMM GRAN% 0.2 % (0.0-0.5); LYMPH# 2.15 X1000 (1.2-3.4); LYMPH% 20.4 % (20.5-51.1); MCH 30.4 PG (27-31); MCHC 32.5 g/dL (33-37); MCV 93.5 FL (81-99); MONO# 1.05 X1000 (0.11-0.59); MPV 11.1 FL (7.4-10.4); NEUT# 6.56 X1000 (1.4-6.5); NEUT% 62.3 % (42.2-75.2); PLT 211 X1000 (130-400); RBC 3.39 XMIL (4.2-5.4); RDW 17.9 % (11.5-14.5); WBC 10.53 X1000 (4.8-10.8)
--- NOTE | 2019-06-21 12:32 | EKG Report ---
Test Performed on : 06/21/2019 12:29:12 PM Test Reason : admit Blood Pressure : / mmHG Vent. Rate : 079 BPM Atrial Rate : 079 BPM P-R Int : 206 ms QRS Dur : 086 ms QT Int : 422 ms P-R-T Axes : 090 -21 031 degrees QTc Int : 483 ms Normal sinus rhythm. Low voltage QRS Borderline ECG When compared with ECG of 17-APR-2019 06:44, Nonspecific T wave abnormality no longer evident in Inferior leads T wave inversion no longer evident in Anterolateral leads QT has shortened Unconfirmed Result
[2019-06-21 12:37] LABS: BILIRUBIN URINE NEGATIVE (NEGATIVE); BLOOD URINE SMALL (NEGATIVE); COLOR YELLOW; GLUCOSE URINE NEGATIVE (NEGATIVE); KETONE URINE NEGATIVE (NEGATIVE); LEUKOCYTES URINE LARGE (NEGATIVE); NITRITE URINE NEGATIVE (NEGATIVE); PROTEIN URINE 30 mg/dL (NEGATIVE); TURBIDITY URINE TURBID (CLEAR); UROBILINOGEN URINE NORMAL (NORMAL)
[2019-06-21 12:41] LABS: UR EPITHELIAL CELLS <10 /HPF (<10); URINE BACTERIA 4+ /HPF; URINE WBC TNTC /HPF (<10)
[2019-06-21 12:51] LABS: URINE YEAST NONE SEEN
[2019-06-21 12:52] LABS: AGAP 9; ALB/GLOB RATIO 0.7; ALBUMIN 3.1 g/dL (3.5-5.0); ALKALINE PHOSPHATASE 80 U/L (32-104); BUN 18 mg/dL (8-22); CALCIUM 8.5 mg/dL (8.8-10.2); CHLORIDE 97 mmol/L (98-107); COSMO 266; CREATININE 0.9 mg/dL (0.5-0.9); ESTIMATED GFR > 60; GLUCOSE 90 mg/dL (70-104); GOT 35 U/L (10-30); GPT 19 U/L (10-36); POTASSIUM 4.2 mmol/L (3.5-5.1); SODIUM 132 mmol/L (136-145); TCO2 26 mmol/L (25-35); TOTAL BILIRUBIN 0.35 mg/dL (0.20-1.00); TOTAL PROTEIN 7.8 g/dL (6.3-8.3)
--- NOTE | 2019-06-21 12:58 | ED EKG INTERP ---
This chart was entered by Waleska Leiva Scribe, acting as scribe for Johnnie Colon MD. EKG Interpretation - EKG Time of EKG reading by physician:: 12:29 EKG Read and Signed by:: Johnnie Colon EKG Interpretation (*Must complete 3 of following elements*): Abnormal Rate: 79 Rhythm: normal sinus rhythm [place]: normal QRS: other (low voltage) Comments: borderline ECG Attestation - Physician/ SYLVIA Attestation Patient care was provided by Advanced Practice Provider:: Yes Advanced Practice Provider:: Felicia Melendez Advanced Practice Provider documentation review:: The Mid-level provider documentation, treatment plan and medical decision making was reviewed by the physician who agrees with all treatment and medical decision making by the MLP. The physician spent face to face time with patient:: No Advanced Practice Provider documentation review:: Supervising physician onsite and consulted in the evaluation and care of this patient. The physician did not have a face to face encounter with the patient. This chart was documented by the indicated scribe, (Waleska Leiva Scribe) and accurately reflects the services I performed and decisions made by me, Johnnie Colon MD, as attested by the provider's signature.
[2019-06-21 13:13] LABS: IRON SATURATION 12 %; TIBC 218 ug/dL; TOTAL IRON 27 ug/dL (49-151); UNBOUND IRON 191 ug/dL (112-346)
[2019-06-21 13:28] LABS: TSH 0.76 uIUmL (0.27-4.20)
[2019-06-21 13:55] LABS: AGAP 9; ALB/GLOB RATIO 0.7; ALBUMIN 3.1 g/dL (3.5-5.0); ALKALINE PHOSPHATASE 80 U/L (32-104); BUN 18 mg/dL (8-22); CALCIUM 8.5 mg/dL (8.8-10.2); CHLORIDE 99 mmol/L (98-107); COSMO 272; CREATININE 0.8 mg/dL (0.5-0.9); ESTIMATED GFR > 60; GLUCOSE 100 mg/dL (70-104); GOT 33 U/L (10-30); GPT 18 U/L (10-36); POTASSIUM 4.1 mmol/L (3.5-5.1); SODIUM 135 mmol/L (136-145); TCO2 27 mmol/L (25-35); TOTAL PROTEIN 7.8 g/dL (6.3-8.3)
--- NOTE | 2019-06-21 16:19 | Diag Imaging Result Doc PS360 ---
EXAM: XRAY PELVIS W/HIP 2-3VW LT 06/21/2019 HISTORY: hip fracture. TECHNIQUE: AP pelvis and left hip three views COMMENT: There is a subcapital femoral neck fracture on the left. There is some generalized osteopenia. There are degenerative disc changes and scoliosis in the visualized portion of the lumbar spine. IMPRESSION: Fracture left femoral neck. Electronically signed by Cyril Alvarez 06/21/2019 4:17 PM
[2019-06-21] MEDS: ZITHROMAX PO SCH (16:55)
[2019-06-21] MEDS: NORCO-7.5 PO PRN ×2 (16:56→22:00)
[2019-06-21] MEDS: ROCEPHIN 1 GM in NS 50 ML IV SCH (16:56)
[2019-06-21] MEDS ORDERED: ZOFRAN PO PRN (17:46)
[2019-06-21] MEDS ORDERED: SYNTHROID PO SCH (18:00)
--- NOTE | 2019-06-21 21:03 | ORTHOPAEDICS CONSULTATION ---
DATE: 06/21/2019 HISTORY OF PRESENT ILLNESS: This is a 79-year-old female that presented to the emergency department with complaints of a fall last night. She stated that her left hip began hurting soon after the fall, and pain radiated down her ankle. She states she hit her head but denies LOC at this time. She denies taking any kind of blood thinner. She does report taking aspirin daily full straight. The patient states that her walker slipped away, and she fell landing on her hip. She also reports she has had a recent left ankle surgery by Dr. Paige, and he just released her to start walking with a walker. REVIEW OF SYSTEMS: Twelve-point review of systems were performed. Pertinent positives listed in the HPI. PAST MEDICAL HISTORY: Includes hypertension, GERD, anxiety. FAMILY HISTORY: Not pertinent. SOCIAL HISTORY: The patient denies smoking, drinking, or any kind of drug use. PHYSICAL EXAMINATION: General: Patient is awake, alert, on the hospital bed. She is talking. HEENT: Head is atraumatic, normocephalic. Eyes equal, round, and reactive. Neck: Supple. Chest: There is equal chest expansion and rise and fall. Cardiovascular: Regular rate and rhythm. Gastrointestinal: Abdomen is soft, nontender. Lower Extremities: Left lower extremity. There is some minimal shortening of the left lower extremity at this time. There is minimal rotation to the left lower extremity. There is some tenderness about the left hip. There is notable swelling. There are good pedal pulses. There is good capillary refill in toes. There is good sensation. There is notable swelling to the left ankle. There is also tenderness throughout the knee. IMAGING: Review of x-rays include an ankle x-ray, left side. Shows 2 screws in medial malleolus and lateral malleolus plate. They look like they have good alignment at this time. There is also a proximal fibular fracture that is healing. X-ray of the left knee. There has been a left total knee replacement that shows good alignment. There is no obvious loosening. There is some new bone formation about the proximal fibula fracture. CT pelvis shows a left femoral neck fracture and spondylosis and spondylolisthesis at L5-S1. CT of cervical spine shows no acute intracranial or cervical spine disease. ASSESSMENT: Left femoral neck fracture, left proximal fibular fracture, recent bimalleolar fractures of the ankle with ORIF. PLAN: We will plan to take Ms. Grossman to surgery tomorrow around noon to perform a closed reduction, percutaneous pinning of her left hip. The patient understands and agrees to the risks and benefits of the surgery. All these risks were talked about with the patient and family at bedside. Risks include bleeding, damage to nerve or blood vessel, and . The patient is willing to proceed. We will keep her n.p.o. after midnight. We will see her back later and get her set up for surgery. Dictated by SUSAN Castañeda for Alton Shell MD cc: SUSAN Castañeda MD
--- NOTE | 2019-06-21 21:12 | HISTORY AND PHYSICAL ---
CHIEF COMPLAINT: Fall, hip pain. HISTORY OF PRESENT ILLNESS: This is a 79-year-old female who presented to the emergency room after falling last night and having left hip pain since. She carries a history of a left ankle fracture status post repair in May and is not currently up to full weightbearing using a walker for ambulation. She states that she got tripped up in her walker causing her to fall. Hip and pelvis x-ray revealed left femoral neck fracture. PAST MEDICAL HISTORY: 1. Atrial fibrillation with rapid ventricular rate. 2. History of mesenteric ischemia post celiac artery stent on 04/19/2019. 3. History of gastric ulcer. 4. History of symptomatic bradycardia status post pacemaker. 5. Gastroesophageal reflux disease. 6. Hypothyroid. 7. Hyperlipidemia. PAST SURGICAL HISTORY: 1. Pacemaker placement. 2. Tubal ligation. 3. Bilateral knee replacement. 4. Left ankle repair. SOCIAL HISTORY: She is . Has a supportive family. Denies alcohol, tobacco, or illicit drug use. ALLERGIES: No known drug allergies. HOME MEDICATIONS: A list will be obtained by the nursing staff and once verified we will review and restart as is appropriate. REVIEW OF SYSTEMS: Discussed with patient with pertinent positives stated in the HPI. She denied any syncope, dizziness, chest pain, palpitations, shortness of breath, cough, fever, chills, any night sweats; any nausea, vomiting, diarrhea, constipation, black or bloody vomitus or stools; any hematuria, dysuria, frequency, urgency. PHYSICAL EXAMINATION: GENERAL: This is a 79-year-old female who is lying on the stretcher in the emergency room in no distress. VITAL SIGNS: Blood pressure is 128/62 with a heart rate of 84, respirations 18, temperature is 98.5 degrees oral with O2 saturation 95%. CARDIOVASCULAR: Regular rate and rhythm. S1 and S2 appreciated. PULMONARY: Breath sounds are clear with no increased work of breathing noted. GASTROINTESTINAL: Abdomen is soft, nontender, nondistended with bowel sounds in all 4 quadrants. GENITOURINARY: Mccormick is patent to bedside bag with clear yellow urine draining. NEUROLOGIC: She is alert and oriented x3. Skin is warm and dry. LABORATORY DATA: WBC is 10.5 with hemoglobin 10.3, hematocrit 31.7, and platelets of 211,000. Sodium is 132, potassium 4.2, BUN 18, creatinine 0.9 with a glucose of 90. Urinalysis revealed large leukocytes, eon-[id number]-count white blood cells, 10 to 20 red blood cells, with 4+ bacteria. Urine culture is pending. CT of the head and C-spine revealed no evidence of acute intracranial or cervical spine disease. CT of the pelvis revealed left femoral neck fracture, spondylosis and spondylolisthesis at L5-S1. Ankle x-ray left, new bony erosions at the superior and posterior calcaneus which may indicate disuse osteopenia. Calcific tendinitis or nondisplaced fracture. No complication at the medial and lateral malleolus fracture surgical sites. Hip and pelvis x-ray revealed fracture of the left femoral neck. Chest x-ray revealed overall improvement from prior. Cardiomegaly and hazy bilateral infiltrates suggesting pulmonary edema. ASSESSMENT AND PLAN: 1. Left femoral neck fracture. Dr. Shell in Orthopedics has been consulted. The patient will be n.p.o. after midnight. 2. Bilateral infiltrates. 3. Urinary tract infection. Continue Rocephin. 4. Hypertension. We will identify her home medications and continue. 5. Gastroesophageal reflux disease. We will continue omeprazole. 6. Hypothyroid. Check a TSH and continue her home Synthroid. 7. Reported recent pneumonia. We will add Zithromax to Rocephin as the patient is undergoing surgery. 8. Anemia. check anemia panel. 9. Further treatments pending hospital course. CBC, CMP in the morning. Plan discussed with Dr Ku. Dictated by SUSAN Knowles for Justen Ku MD cc: SUSAN Knowles MD [facility]
[2019-06-21] MEDS: PRAVACHOL PO SCH (22:00)
[2019-06-21] MEDS: PRILOSEC PO SCH (22:01)
--- NOTE | 2019-06-21 22:26 | HISTORY AND PHYSICAL ---
ADDENDUM: I have seen and examined Ms. Grossman today. Ms. Grossman came in early this morning through the emergency room because of left hip pain. Ms. Grossman refers to have fallen down from her walker yesterday. She tried to get up, but she was unable, so she called to her who helped her up. She went to sleep, woke up this morning, she was still hurting, so she decided to come to the emergency department. At the ER, she has been evaluated. Currently, her vitals are all stable. Blood pressure is 138/63, pulse of 85, respirations 14, temperature is 98.6 degrees. Ms. Grossman's physical exam is for most part unremarkable, except for the left hip which is very tender in palpation, and she has an external rotation of the left lower extremity. We reviewed her imaging studies as well. CT scan of the head and spine did not show any acute fracture. A pelvic x-ray did show a left femoral neck fracture. Ms. Grossman's EKG shows normal sinus rhythm with a rate of about 79, no ST-segment or T-waves abnormality. Ms. Grossman also has an echocardiogram on 04/13/2019, which showed an ejection fraction of 70 to 75 percent, with no wall motion abnormality. ASSESSMENT: 1. Status post mechanical fall resulting in to a left femoral neck fracture. The patient has been evaluated by Orthopedics. There is a plan for intervention tomorrow. 2. History of peripheral vascular disease with recent superior mesenteric artery stent placement. 3. Paroxysmal atrial fibrillation. Currently, in sinus and rate controlled. The patient is status post pacemaker and automatic implantable cardioverter defibrillator. 4. Multiple orthopedic surgeries. PERIOPERATIVE EVALUATION: Currently, Ms. Grossman is not on any anticoagulant, except aspirin. She also denies any ongoing chest pain, any signs of congestion, or any respiratory symptoms. She denies having any chronic liver or chronic kidney disease. Ms. Grossman has paroxysmal atrial fibrillation, but she is currently rate controlled. She is a moderate risk patient for a moderate nonvascular surgery (orthopedic intervention). Surgery is emergent and we recommend Surgery to proceed. Please refer to the details of the H&P dictated by the HUMAN RESOURCES CLERK. cc: Justen Ku MD MTDD
[2019-06-22] MEDS: NORCO-7.5 PO PRN ×3 (02:23→16:44)
[2019-06-22 05:30] LABS: BASO# 0.06 X1000 (0.0-0.2); BASO% 0.5 % (0.0-0.8); EOS# 1.15 X1000 (0.0-0.7); EOS% 9.7 % (0.0-10.0); HEMATOCRIT 30.9 % (37.0-47.0); HEMOGLOBIN 10.1 g/dL (12.0-16.0); IMM GRAN# 0.03 X1000 (0.0-0.04); IMM GRAN% 0.3 % (0.0-0.5); LYMPH# 2.77 X1000 (1.2-3.4); LYMPH% 23.4 % (20.5-51.1); MCH 30.5 PG (27-31); MCHC 32.7 g/dL (33-37); MCV 93.4 FL (81-99); MONO# 1.15 X1000 (0.11-0.59); MONO% 9.7 % (1.7-9.3); MPV 11.2 FL (7.4-10.4); NEUT# 6.68 X1000 (1.4-6.5); NEUT% 56.4 % (42.2-75.2); PLT 210 X1000 (130-400); RBC 3.31 XMIL (4.2-5.4); RDW 17.9 % (11.5-14.5); WBC 11.84 X1000 (4.8-10.8)
[2019-06-22 05:50] LABS: AGAP 9; ALB/GLOB RATIO 0.7; ALKALINE PHOSPHATASE 73 U/L (32-104); BUN 13 mg/dL (8-22); CALCIUM 8.3 mg/dL (8.8-10.2); CHLORIDE 99 mmol/L (98-107); COSMO 269; CREATININE 0.7 mg/dL (0.5-0.9); ESTIMATED GFR > 60; GLUCOSE 115 mg/dL (70-104); GOT 27 U/L (10-30); GPT 15 U/L (10-36); POTASSIUM 3.9 mmol/L (3.5-5.1); SODIUM 134 mmol/L (136-145); TCO2 26 mmol/L (25-35); TOTAL BILIRUBIN 0.47 mg/dL (0.20-1.00); TOTAL PROTEIN 7.5 g/dL (6.3-8.3)
[2019-06-22] MEDS: SYNTHROID PO SCH (06:44)
[2019-06-22] MEDS ORDERED: KLONOPIN PO SCH (09:00)
[2019-06-22] MEDS: PRILOSEC PO SCH ×2 (09:06→22:06)
[2019-06-22] MEDS: CELEXA PO SCH (09:06)
[2019-06-22] MEDS: NORVASC PO SCH (09:06)
[2019-06-22] MEDS ORDERED: FENTANYL ONE (11:59)
[2019-06-22] MEDS ORDERED: QUELICIN (DOSE) ONE (12:03)
[2019-06-22] MEDS ORDERED: NEO-SYNEPHRINE ONE (12:22)
[2019-06-22] MEDS ORDERED: SODIUM CHLORIDE 0.9% 10 ML ONE (12:22)
[2019-06-22] MEDS ORDERED: DIPRIVAN 1% ONE (13:24)
[2019-06-22] MEDS ORDERED: XYLOCAINE-MPF 2% ONE (13:24)
[2019-06-22] MEDS ORDERED: MILK OF MAGNESIA PO PRN (14:04)
[2019-06-22] MEDS ORDERED: ZOFRAN IV PRN (14:04)
[2019-06-22] MEDS ORDERED: MORPHINE IV PRN (14:04)
[2019-06-22] MEDS ORDERED: HALDOL IV PRN (14:15)
[2019-06-22] MEDS: TYLENOL PO SCH ×2 (14:39→22:07)
[2019-06-22] MEDS: NS 1,000 ML IV SCH (14:39)
[2019-06-22] MEDS: KEFZOL 1 GM/D5W 1 GM/50 ML IVPB IV SCH ×2 (14:39→22:07)
[2019-06-22] MEDS: ZITHROMAX PO SCH (14:39)
[2019-06-22] MEDS: ROCEPHIN 1 GM in NS 50 ML IV SCH (16:44)
[2019-06-22] MEDS ORDERED: PERIDEX MT SCH (21:00)
--- NOTE | 2019-06-22 21:00 | PROGRESS NOTE ---
DATE: 06/22/2019 SUBJECTIVE: This morning, Ms. Grossman refers to be doing fairly okay, just awaiting surgery to be done. She denied any new complaints except for pain in the left thigh. OBJECTIVE: Vital signs: Blood pressure was 140/90, pulse of 89, respirations is 19, temperature is 98.2 degrees. Patient was saturating 98%. General: Ms. Grossman is a 79-year-old elderly female. She was in bed. No distress. HEENT: Mucosa is pink and moist. Anicteric. Acyanotic. Neck: Supple. Chest: Good air entry bilateral. There were no crepitations. No rhonchi. Cardiovascular: Regular rate and rhythm. Abdomen: Soft. Extremities: No pedal edema. The left lower extremity was externally rotated and was minimally tender. LABORATORY DATA: WBC was 11.84, hemoglobin is 10.1, platelet count of 211,000. Chemistry is also reviewed. It is completely unremarkable. Vitamin D level is high. The urine is showing gram- negative karen. The patient has been started on ceftriaxone. ASSESSMENT: 1. Status post mechanical fall resulting in a left femoral neck fracture. Patient is pending an orthopedic intervention today. 2. History of peripheral vascular disease with recent superior mesenteric artery stent placement. 3. Paroxysmal atrial fibrillation, currently rate controlled. 4. Status post automatic implantable cardioverter-defibrillator. 5. Gram-negative karen urinary tract infection. Patient has been started on ceftriaxone today. cc: Justen Ku MD
--- NOTE | 2019-06-22 21:18 | OPERATIVE NOTE ---
PROCEDURE DATE: 06/22/2019 PREOPERATIVE DIAGNOSIS: Impacted left femoral neck fracture. POSTOPERATIVE DIAGNOSIS: Impacted left femoral neck fracture. PROCEDURE: Closed reduction, percutaneous fixation of left hip with 7.3 cannulated screws. SURGEON: Felicia Shell MD. ROAD CONSULTANT: SUSAN Castañeda. ANESTHESIA: General. COMPLICATIONS: None. PROCEDURE IN DETAIL: This is a 79-year-old female who presents for a percutaneous pinning of an impacted left femoral neck fracture. Risks, benefits, and no guarantees were discussed, and she is willing to proceed. She was taken to the operating room and satisfactory anesthesia obtained. The left leg was positioned on the Belmond table with gentle neutral alignment and minimal traction for the impacted fracture. Closed reduction revealed good reduction and alignment of the femoral neck fracture. A time-out was taken to confirm operative site, procedure, and patient. After prep and drape, a 1-inch incision was made opposite the lesser trochanter along the lateral thigh and dissection carried down to the lateral cortex. Under multiplanar image guidance, three 7.3 cannulated screw guidewires were placed through the lateral cortex, up the femoral neck and into the central aspect of the femoral head. One 90-length screw and two 85 mm screws were then placed over the guidewires in a triangular fashion, securing the fixation. The guidewires were removed and the C-arm used to verify accurate fracture reduction and hardware placement. The hip was rotated internally and externally under fluoroscopic imaging, with no instability of the repair. The incision was then irrigated and closed with 2-0 Vicryl followed by skin win. Sterile dressings completed the closure, and the patient was recovered from anesthesia and transferred to the recovery room in stable condition. No intraoperative complications were noted. Instrument count and sponge count were correct at the time of closure. cc: Alton Shell MD
[2019-06-22] MEDS: COLACE PO SCH (22:06)
[2019-06-22] MEDS: PERIDEX MT SCH (22:07)
[2019-06-22] MEDS: PRAVACHOL PO SCH (22:07)
[2019-06-22] MEDS: OXY IR PO PRN (22:14)
[2019-06-23] MEDS: KEFZOL 1 GM/D5W 1 GM/50 ML IVPB IV SCH (06:01)
[2019-06-23] MEDS: NS 1,000 ML IV SCH (06:01)
[2019-06-23] MEDS: KLONOPIN PO SCH ×2 (06:01→21:23)
[2019-06-23] MEDS: OXY IR PO PRN (06:02)
[2019-06-23] MEDS: XARELTO PO SCH (06:02)
[2019-06-23] MEDS: SYNTHROID PO SCH (06:02)
[2019-06-23] MEDS: TYLENOL PO SCH ×2 (06:06→15:07)
[2019-06-23 06:12] LABS: HEMATOCRIT 31.2 % (37.0-47.0); HEMOGLOBIN 9.9 g/dL (12.0-16.0)
[2019-06-23 06:43] LABS: AGAP 9; BUN 14 mg/dL (8-22); CALCIUM 8.3 mg/dL (8.8-10.2); CHLORIDE 100 mmol/L (98-107); COSMO 272; CREATININE 0.8 mg/dL (0.5-0.9); ESTIMATED GFR > 60; GLUCOSE 97 mg/dL (70-104); POTASSIUM 3.6 mmol/L (3.5-5.1); SODIUM 136 mmol/L (136-145); TCO2 27 mmol/L (25-35)
[2019-06-23] MEDS: PRILOSEC PO SCH ×2 (09:00→21:18)
[2019-06-23] MEDS: FERROUS SULFATE PO SCH (09:34)
[2019-06-23] MEDS: ZITHROMAX PO SCH (09:34)
[2019-06-23] MEDS: CELEXA PO SCH (09:34)
[2019-06-23] MEDS: NORVASC PO SCH (09:34)
[2019-06-23] MEDS: PERIDEX MT SCH ×2 (09:35→21:17)
[2019-06-23] MEDS: NORCO-7.5 PO PRN ×3 (09:39→18:04)
[2019-06-23] MEDS: ROCEPHIN 1 GM in NS 50 ML IV SCH (16:42)
--- NOTE | 2019-06-23 18:35 | PROGRESS NOTE ---
DATE: 06/23/2019 SUBJECTIVE: This morning, Ms. Grossman refers to be doing fairly okay. I understand Physical Therapy came to work with her. However, she did complain of a lot of pain, so she did not get to do a whole lot. OBJECTIVE: Vital signs: Blood pressure is 154/97, pulse of 96, respirations 16, temperature is 98.1. General: Ms. Grossman is a 79-year-old, elderly female. She is in bed, in no distress. Mucosa is pink and moist. Anicteric. Acyanotic. Neck: Supple. Chest: Good air entry bilaterally. No crepitations. No rhonchi. Cardiovascular: Regular rate and rhythm. Gastrointestinal: Abdomen is soft, nontender. Bowel sounds present. Extremities: No pedal edema. There is a new sterile dressing over the lateral aspect of the left thigh. LABORATORY DATA: Hemoglobin is 9.9, hematocrit is 3.1. Chemistry is completely normal. The patient's laboratory data has all been reviewed. No changes. Urine shows Klebsiella pneumoniae. The patient is already on ceftriaxone. ASSESSMENT: 1. Status post mechanical fall resulting in a left femoral neck fracture. Patient is status post closed reduction and percutaneous fixation of the left with cannulated screws. This was done by Dr. Shell yesterday. Today is day 1 postoperative. Patient seems to be doing okay, has been evaluated by Physical therapy. 2. History of peripheral vascular disease with recent superior mesentery artery stent placement noted. Currently asymptomatic. 3. Paroxysmal atrial fibrillation. Currently rate controlled. 4. Status post automatic implantable cardioverter defibrillator. 5. Klebsiella pneumoniae urinary tract infection. Patient is on ceftriaxone. PLAN: Ms. Grossman is doing a lot better. She is day 1 post orthopedic intervention. She will be continued with physical therapy and the plan will be hopefully to get her to a rehab. cc: Justen Ku MD
--- NOTE | 2019-06-23 21:00 | ORTHOPAEDICS PROGRESS NOTE ---
DATE: 06/23/2019 SUBJECTIVE: Ms. Grossman is seen status post pinning of her hip. OBJECTIVE: Currently she is afebrile, with stable vital signs. Her bandage is clean and dry. There are no signs of infection or DVT. ASSESSMENT AND PLAN: She can be mobilized, touchdown weightbearing on the left lower extremity. We will start discharge planning for either home care early next week or rehab services inpatient. I will be out of town this weekend, but my partners will be available for any orthopedic needs. Otherwise, we will check back with her on Wednesday. cc: Alton Shell MD
[2019-06-23] MEDS: PRAVACHOL PO SCH (21:18)
[2019-06-23] MEDS: COLACE PO SCH (21:18)
[2019-06-24] MEDS: TYLENOL PO SCH ×6 (00:18→22:39)
[2019-06-24] MEDS: NORCO-7.5 PO PRN ×3 (00:57→10:20)
[2019-06-24] MEDS: SYNTHROID PO SCH (05:52)
[2019-06-24] MEDS: XARELTO PO SCH (05:52)
[2019-06-24 07:04] LABS: HEMATOCRIT 29.4 % (37.0-47.0); HEMOGLOBIN 9.6 g/dL (12.0-16.0)
[2019-06-24] MEDS: PRILOSEC PO SCH ×2 (10:15→21:07)
[2019-06-24] MEDS: FERROUS SULFATE PO SCH (10:15)
[2019-06-24] MEDS: PERIDEX MT SCH ×2 (10:15→21:07)
[2019-06-24] MEDS: ZITHROMAX PO SCH (10:15)
[2019-06-24] MEDS: NORVASC PO SCH (10:15)
[2019-06-24] MEDS: CELEXA PO SCH (10:16)
--- NOTE | 2019-06-24 16:17 | PROGRESS NOTE ---
DATE: 06/24/2019 SUBJECTIVE: This morning Ms. Grossman refers to be feeling okay, no new complaints. She was actually taking her breakfast at the time of the encounter. OBJECTIVE: Vitals: Blood pressure 122/57, pulse of 75, respiration is 14, temperature 98.8 degrees. General: Ms. Grossman 79-year-old female she is in bed no distress. Mucosa is pink and moist. Anicteric. Acyanotic. Neck: Supple. Chest: Clear to auscultation. No crepitations, no rhonchi. Cardiovascular: Regular rate and rhythm. Abdomen: Soft, nontender. Bowel sounds present. There was no hepatosplenomegaly. Extremities: No pedal edema. The left lateral thigh still has some dressing over the surgical site. LABORATORY DATA: Hemoglobin is 9.6. No major changes from yesterday. ASSESSMENT: 1. Status post mechanical fall resulting in a left femoral neck fracture. Patient is status post closed reduction and percutaneous pinning by Dr. Shell, today is day 2 postop. Patient is doing well, Physical Therapy is on board. 2. History of peripheral vascular disease with recent stent placement in the superior mesenteric artery, patient is currently asymptomatic. 3. Paroxysmal atrial fibrillation currently rate controlled. 4. Status post automated implantable cardioverter defibrillator. 5. Klebsiella pneumoniae urinary tract infection. Patient is on ceftriaxone for a total of 5 days. End of therapy is Wednesday06/26/2019. 6. Generalized weakness and deconditioning, patient is being seen by Physical Therapy and there is a plan to potentially get her to rehab on Wednesday. cc: Justen Ku MD
[2019-06-24] MEDS: ROCEPHIN 1 GM in NS 50 ML IV SCH (17:35)
[2019-06-24] MEDS: OXY IR PO PRN ×2 (17:44→21:13)
[2019-06-24] MEDS: PRAVACHOL PO SCH (21:07)
[2019-06-24] MEDS: KLONOPIN PO SCH (21:07)
[2019-06-24] MEDS: COLACE PO SCH (21:07)
[2019-06-25] MEDS: OXY IR PO PRN ×5 (05:02→21:41)
[2019-06-25] MEDS: XARELTO PO SCH (05:03)
[2019-06-25] MEDS: SYNTHROID PO SCH (05:03)
[2019-06-25] MEDS: TYLENOL PO SCH ×3 (06:07→23:01)
[2019-06-25 06:48] LABS: HEMATOCRIT 31.4 % (37.0-47.0); HEMOGLOBIN 10.2 g/dL (12.0-16.0)
[2019-06-25] MEDS ORDERED: ASPIRIN EC PO SCH (09:00)
[2019-06-25] MEDS: CELEXA PO SCH (10:14)
[2019-06-25] MEDS: NORVASC PO SCH (10:14)
[2019-06-25] MEDS: PERIDEX MT SCH ×2 (10:14→21:36)
[2019-06-25] MEDS: PRINIVIL PO SCH (10:14)
[2019-06-25] MEDS: FERROUS SULFATE PO SCH (10:14)
[2019-06-25] MEDS: PRILOSEC PO SCH ×2 (10:42→21:36)
[2019-06-25] MEDS: ZITHROMAX PO SCH (10:42)
[2019-06-25] MEDS ORDERED: ROCEPHIN ONE (12:02)
--- NOTE | 2019-06-25 15:31 | PROGRESS NOTE ---
DATE: 06/25/2019 Today Ms. Grossman refers to be doing okay. She did refer that she would rather want to go home instead of going to the rehab. Unfortunately per the physical therapy note from yesterday Ms. Grossman does not seems to be doing a lot by herself and I am not sure if she will be able to be safe enough at home even with home health. OBJECTIVE: Vitals: Blood pressure is 120/56, pulse of 72, respiration is 20, temperature 97.6 degrees, patient is saturating 100% on room air. General: Ms. Grossman 79-year-old female she is in bed no distress. Mucosa is pink and moist. Anicteric, acyanotic. Neck: Supple. Chest: Clear. Cardiovascular: Regular rate and rhythm, no murmurs. Abdomen: Soft, nontender. Bowel sounds present. No hepatosplenomegaly. Extremities: No pedal edema. Distal pulses present. CASH REGISTER REPAIRER: Patient is awake, alert, oriented. Musculoskeletal: The left thigh still has a dressing over the surgical site. LABORATORY DATA: Hemoglobin is 10.2, no chemistry. CURRENT MEDICATIONS: Have all been reviewed. ASSESSMENT: 1. Status post mechanical fall resulting in left femoral neck fracture, patient is status post closed reduction and percutaneous pinning by Dr. Shell today day 3 postop. She is stable but have not done a whole lot with physical therapy. We are going to follow up with them and get their final recommendations about discharge planning. 2. History of peripheral vascular disease with recent stent placement in the superior mesenteric artery. Patient is currently asymptomatic. 3. Paroxysmal atrial fibrillation currently rate control. 4. Status post automated implantable cardioverter defibrillator. 5. Klebsiella pneumoniae urinary tract infection, patient is on ceftriaxone. 6. Generalized weakness and deconditioning, physical therapy is on board. PLAN: So in general Ms. Grossman is fairly stable from surgery standpoint, PT notes has not been very encouraging. Will see how active and how strong Ms. Grossman is tomorrow with physical therapy and then plan the discharge. She might she might need to go to an inpatient rehab however Ms. Grossman herself is not very enthusiastic about that idea. cc: Justen Ku MD
[2019-06-25] MEDS: ROCEPHIN 1 GM in NS 50 ML IV SCH (17:25)
[2019-06-25] MEDS: COLACE PO SCH (21:36)
[2019-06-25] MEDS: PRAVACHOL PO SCH (21:36)
[2019-06-25] MEDS: KLONOPIN PO SCH (21:36)
[2019-06-26] MEDS: XARELTO PO SCH (06:10)
[2019-06-26] MEDS: TYLENOL PO SCH (06:10)
[2019-06-26] MEDS: SYNTHROID PO SCH (06:10)
[2019-06-26] MEDS: OXY IR PO PRN ×2 (06:11→10:13)
[2019-06-26] MEDS ORDERED: ASPIRIN EC PO SCH (09:00)
[2019-06-26] MEDS: NORVASC PO SCH (10:12)
[2019-06-26] MEDS: PRINIVIL PO SCH (10:12)
[2019-06-26] MEDS: CELEXA PO SCH (10:12)
[2019-06-26] MEDS: FERROUS SULFATE PO SCH (10:12)
[2019-06-26] MEDS: PERIDEX MT SCH (10:12)
[2019-06-26] MEDS: PRILOSEC PO SCH (10:13)
[2019-06-26 11:53] VITALS: BP 139/67
--- NOTE | 2019-06-27 12:34 | DISCHARGE SUMMARY ---
ADMISSION DATE: 06/21/2019 DISCHARGE DATE: 06/26/2019 DISPOSITION: Home. FOLLOW-UP: Dr. Johnnie Hampton. Dr. Shell. [facility]. CONSULTATION DURING THIS ADMISSION: Orthopedics was consulted. Patient was seen by Dr. Shell. IMAGING STUDIES OF SIGNIFICANCE: A CT scan of the head and spine showed no acute pathology. A knee x-ray show a healing proximal fibular fracture. No complication at the prosthesis. A pelvic CT scan showed a left femoral neck fracture, spondylosis, and spondylolisthesis at L5-S1. Ankle x-ray showed new bony erosions, which is indicative of diffuse osteopenia, calcified tendinitis, and nondisplaced fracture. No complication at the medial and lateral malleolus fracture surgery site. A hip x-ray showed fracture of the left femoral neck. INVASIVE PROCEDURES DONE: Closed reduction and percutaneous fixation of the left hip with cannulated screws by Dr. Shell on 06/22/2019. ADMISSION DIAGNOSIS: 1. Left femoral neck fracture. 2. Bilateral infiltrates. 3. Urinary tract infection. 4. Hypothyroidism. 5. Anemia. DIAGNOSIS AT THE TIME OF DISCHARGE: 1. Status post mechanical fall resulting in left femoral neck fracture. The patient is status post closed reduction and percutaneous pinning by Dr. Shell. Today was day 4 postop. She was doing fairly okay with physical therapy. The patient declines to want to go to rehab. 2. History of peripheral vascular disease with recent stent placement in the superior mesenteric artery, currently asymptomatic. 3. Paroxysmal atrial fibrillation, currently rate controlled. The patient is not on any anticoagulation because of multiple falls. 4. Status post AICD. 5. Klebsiella pneumoniae UTI. Patient has been treated during the hospital course. 6. Generalized weakness and deconditioning. Physical therapy on board. 7. Hypothyroidism. 8. Hypertension. DISCHARGE MEDICATIONS: 1. Pravastatin 40 mg p.o. at bedtime. 2. Synthroid 75 mcg p.o. daily. 3. Clonazepam 0.5 p.o. daily. 4. Amlodipine 2.5 p.o. daily. 5. Citalopram 40 mg p.o. daily. 6. [place]. 7. Lisinopril 10 mg b.i.d. 8. Omeprazole 20 mg b.i.d. 9. Meclizine. 10. Aspirin 325 p.o. daily. 11. Colace 200 mg p.o. at bedtime. 12. Xarelto 10 mg p.o. at bedtime. 13. Iron sulfate 325 p.o. daily. PRESENTING COMPLAINT: Fall, hip pain. HISTORY OF PRESENTING COMPLAINT: Ms. Grossman is a 79-year-old female who has multiple comorbidities, came to the emergency department because of a mechanical fall resulting at trauma to the left hip. Upon presenting, imaging studies did reveal left femoral neck fracture. The patient was admitted for further medical care. She was also found to have dirty urine, which ultimately turned out to be a Klebsiella UTI. Ms. Grossman was admitted for further medical care. HOSPITAL COURSE: Ms. Grossman was evaluated by Orthopedics. The decision was made for surgical intervention, which was successfully done by Dr. Shell. Postoperatively, Ms. Grossman continues to be on antibiotics for UTI and all her other comorbidities were adequately addressed. She was seen by Physical Therapy at least on 3 different occasions. Today, she was able to do about 20 feet. We thought that Ms. Grossman would benefit from inpatient rehab, but she has been extremely adamant that she was not going to any rehab and that she has home health 3 days in the week and her will also help her around. She says she has about 3 different walkers. She also has a wheelchair and she will do fine at home. She also wants to be discharged today. From a medical standpoint, we think she is fairly stable. All her comorbidities seem to be under control and she should be okay going home. She is going to follow up with Dr. Shell as well as with her primary care doctor. All the discharge instructions have been discussed with her. Her was also at the bedside at the time of the encounter. Both of them voiced understanding. DISCHARGE VITAL SIGNS: At the time of discharge, her blood pressure was 139/67, pulse of 80, respirations 16, temperature is 97.6 degrees. Physical exam is unchanged. She is clinically stable. TIME SPENT FOR DISCHARGE: 38 minutes. cc: MD Alton Huggins MD Robert Hall, MD
== END 2019-06-26 15:11 | disposition home health service (06) | DRG 481 ==
LOC: SUPCPDRO → ED 10:04 → EDIPHOLD 13:22 → 4N 14:33
PROVIDERS: ATTEND Internal Medicine

== ENCOUNTER 2019-09-19 06:20 | Inpatient (IN) ==
--- NOTE | 2019-09-07 14:23 | EKG Report ---
Test Performed on : 09/07/2019 2:11:15 PM Test Reason : PAT Blood Pressure : / mmHG Vent. Rate : 071 BPM Atrial Rate : 071 BPM P-R Int : 212 ms QRS Dur : 080 ms QT Int : 420 ms P-R-T Axes : 079 004 -13 degrees QTc Int : 456 ms Sinus rhythm. with 1st degree AV block. Otherwise normal ECG When compared with ECG of 12-JUL-2019 13:22, (Unconfirmed) No significant change was found Best of several attempts. Patient in wheelchair. 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
[2019-09-07 15:03] LABS: HEMOGLOBIN A1C 4.9 % (4.8-6.0)
[2019-09-07 15:11] LABS: BASO# 0.06 X1000 (0.0-0.2); BASO% 0.7 % (0.0-0.8); EOS# 0.45 X1000 (0.0-0.7); HEMATOCRIT 33.1 % (37.0-47.0); HEMOGLOBIN 10.7 g/dL (12.0-16.0); IMM GRAN# 0.02 X1000 (0.0-0.04); IMM GRAN% 0.2 % (0.0-0.5); LYMPH# 2.59 X1000 (1.2-3.4); MCH 31.1 PG (27-31); MCHC 32.3 g/dL (33-37); MCV 96.2 FL (81-99); MONO# 0.82 X1000 (0.11-0.59); MONO% 9.2 % (1.7-9.3); MPV 10.8 FL (7.4-10.4); NEUT# 4.99 X1000 (1.4-6.5); NEUT% 55.9 % (42.2-75.2); PLT 298 X1000 (130-400); RBC 3.44 XMIL (4.2-5.4); RDW 15.1 % (11.5-14.5); WBC 8.93 X1000 (4.8-10.8)
[2019-09-07 15:14] LABS: INR 1.02; PROTIME 13.5 Seconds (11.0-16.0)
[2019-09-07 15:15] LABS: PTT 26.2 Seconds (22.3-41.8)
[2019-09-07 15:19] LABS: ALBUMIN 3.8 g/dL (3.5-5.0); CALCIUM 9.2 mg/dL (8.8-10.2); POTASSIUM 4.3 mmol/L (3.5-5.1)
[2019-09-19] MEDS ORDERED: COLACE ONE (06:47)
[2019-09-19] MEDS ORDERED: PEPCID ONE (06:47)
[2019-09-19] MEDS ORDERED: LYRICA ONE (06:47)
[2019-09-19] MEDS ORDERED: REGLAN ONE (06:47)
[2019-09-19] MEDS ORDERED: CELEBREX ONE (06:47)
[2019-09-19] MEDS ORDERED: KEFZOL 1 GM/D5W 1 GM/50 ML IVPB ONE (06:47)
[2019-09-19] MEDS ORDERED: LR 1,000 ML ONE (06:47)
[2019-09-19] MEDS ORDERED: TORADOL ONE (07:59)
[2019-09-19] MEDS ORDERED: CYKLOKAPRON 1,000 MG/NS 1,000 MG/100 ML IVPB ONE (07:59)
[2019-09-19] MEDS ORDERED: MARCAINE 0.25% PF/EPI 1:200,000 ONE (07:59)
[2019-09-19] MEDS ORDERED: DURAMORPH ONE (07:59)
[2019-09-19] MEDS ORDERED: SODIUM CHLORIDE 0.9% ONE (08:00)
[2019-09-19] MEDS ORDERED: EXPAREL 1.3% ONE (08:00)
[2019-09-19] MEDS ORDERED: DIPRIVAN 1% ONE (08:04)
[2019-09-19] MEDS ORDERED: XYLOCAINE-MPF 2% ONE (08:04)
[2019-09-19] MEDS ORDERED: FENTANYL ONE (08:04)
[2019-09-19] MEDS ORDERED: NORCO-7.5 PO ONE (08:15)
[2019-09-19] MEDS ORDERED: NORCO-7.5 ONE (08:18)
[2019-09-19] MEDS ORDERED: EPHEDRINE ONE (08:29)
[2019-09-19] MEDS ORDERED: NEO-SYNEPHRINE ONE ×2 (08:29→08:43)
[2019-09-19] MEDS ORDERED: PITRESSIN ONE (09:10)
[2019-09-19] MEDS ORDERED: DECADRON ONE (09:22)
[2019-09-19] MEDS ORDERED: OFIRMEV 1000 MG/ISOTONIC SOLN 1,000 MG/100 ML BOTTLE ONE (09:22)
[2019-09-19] MEDS ORDERED: ZOFRAN ONE (09:22)
[2019-09-19] MEDS ORDERED: NS 1,000 ML ONE (10:52)
[2019-09-19 10:53] LABS: URINE SOURCE CATH
[2019-09-19 11:23] LABS: BILIRUBIN URINE NEGATIVE (NEGATIVE); BLOOD URINE NEGATIVE (NEGATIVE); COLOR YELLOW; GLUCOSE URINE NEGATIVE (NEGATIVE); KETONE URINE TRACE mg/dL (NEGATIVE); LEUKOCYTES URINE LARGE (NEGATIVE); NITRITE URINE NEGATIVE (NEGATIVE); PROTEIN URINE TRACE mg/dL (NEGATIVE); SP GRAVITY URINE 1.021; TURBIDITY URINE HAZY (CLEAR); UROBILINOGEN URINE NORMAL (NORMAL)
[2019-09-19 11:24] LABS: UR EPITHELIAL CELLS <10 /HPF (<10); URINE BACTERIA 4+ /HPF; URINE RBC <10 /HPF (<10); URINE WBC TNTC /HPF (<10)
[2019-09-19] MEDS ORDERED: MORPHINE IV PRN ×3 (11:30)
[2019-09-19] MEDS ORDERED: ZOFRAN IV PRN (11:30)
[2019-09-19] MEDS ORDERED: OXY IR PO PRN (11:30)
[2019-09-19] MEDS ORDERED: ZOFRAN ODT PO PRN (11:30)
[2019-09-19] MEDS: NS 1,000 ML IV SCH ×2 (11:30→22:31)
[2019-09-19] MEDS ORDERED: OXY IR ONE (11:46)
[2019-09-19] MEDS ORDERED: ZOFRAN PO PRN (12:31)
[2019-09-19] MEDS ORDERED: IMODIUM PO PRN (12:31)
[2019-09-19] MEDS ORDERED: ANTIVERT PO PRN (12:31)
[2019-09-19] MEDS ORDERED: BENTYL PO PRN (12:31)
[2019-09-19] MEDS ORDERED: NS 1,000 ML IV ONE (13:57)
[2019-09-19] MEDS: ULTRAM PO SCH (14:31)
[2019-09-19] MEDS: TYLENOL PO SCH ×2 (14:31→22:32)
[2019-09-19] MEDS ORDERED: CYKLOKAPRON 1,000 MG in NS 100 ML IV ONE (15:00)
--- NOTE | 2019-09-19 16:01 | OPERATIVE NOTE ---
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 PROCEDURES: 1. Left anterior hip replacement. 2. Removal of cannulated screws left hip/hardware. SURGEON: Felicia Shell MD. SENIOR HR GENERALIST: SUSAN Castañeda. Mr. Doyle was necessary for proper retraction and manipulation of the leg during the case. ANESTHESIA: General. COMPLICATIONS: None. PROCEDURE IN DETAIL: A 79-year-old female presents after failing to heal a minimally displaced femoral neck fracture with cannulated screws. Risks, benefits, and no guarantees were discussed, and she is willing to proceed with hardware removal and conversion to a hip replacement. She was taken to the operating room, and satisfactory anesthesia obtained. She was placed on the [place] table, and left hip was prepped and draped in usual sterile fashion. A time-out was taken to confirm operative site, procedure, and patient. The previous incision over the cannulated screws was opened with a 10 blade and dissection carried down to the 3 screw heads. These were removed with a screwdriver completely en bloc. An anterior approach to the left hip was then undertaken with an incision starting 1 cm distal and lateral to the anterior superior iliac spine, and carried anteriorly and laterally over the tensor fascia for roughly 10 cm. Dissection was carried down through the skin and subcutaneous to the fascia of the tensor fascia which was split in line with the incision. Blunt dissection along the inner membrane of the tensor was undertaken down to the anterior hip capsule. A capsulotomy incision was made to expose the femoral neck nonunion. An osteotomy was made with a clean neck cut. The femoral neck nonunion and the femoral head removed. A very small Cobra retractor was carefully placed directly on the anterior acetabular bone to protect the anterior neurovascular structures. Sequential reaming of the acetabulum up to a 53 reamer was undertaken. Good corticocancellous bone was noted in the acetabular socket. The De[employer]uy [place] Gription 54 outer diameter cup was impacted in the acetabulum under fluoroscopic guidance in roughly 45 degrees of abduction and 15 degrees of anteversion. This had secure press- fit fixation. A 36 mm 0 degree polyethylene bearing was impacted into the cup. The bearing cup interface and cup bone interface was checked and noted to be stable while traction was released off the leg and the [place] table utilized to extend and externally rotate the hip to facilitate broaching of the proximal femur. Sequential broaching with the [employer] broach up to a size 5 stem was undertaken. Good fit, fill and axial and rotational stability. A standard neck option with a 1.5 head ball reproduced the leg length with good stability of the hip. The trial stem was removed, and a size 5 standard collar active stem impacted in the proximal femur with secure axial and rotational stability. A 36 mm 1.5 neck length ceramic head ball impacted onto this, and the hip reduced. The C-arm was used to verify accurate hardware alignment and placement as well as fit and fill. Good amish of leg lengths was noted on the C-arm. The wound was copiously irrigated with irrigant. A Hemovac drain was placed. The joint capsule and skin was injected with Exparel for pain management. The fascia of the tensor was closed with a running V-Loc suture. The subcutaneous with 2-0 Vicryl and the skin with Monocryl suture. Hardware removal. Skin incision was closed with 2-0 Vicryl and win as needed. Sterile dressings were applied. The patient was recovered from anesthesia and transferred to the recovery room in stable condition. No intraoperative complications were noted. Instrument count and sponge count was correct at the time of closure. cc: Alton Shell MD
[2019-09-19] MEDS: KEFZOL 1 GM/D5W 1 GM/50 ML IVPB IV SCH ×2 (16:28→23:24)
--- NOTE | 2019-09-19 20:55 | ORTHOPAEDICS PROGRESS NOTE ---
DATE: 09/19/2019 SUBJECTIVE DATA: Ms. Grossman seen postop day 0 of her left total hip arthroplasty. She reports she is doing well at this time. She denies nausea, vomiting or any problems at this time. Family is at bedside. OBJECTIVE DATA: There is good sensation left lower extremity. The patient is able to flex her quadriceps muscles without difficulty. There is negative Homans sign. The bandages are clean and dry. Vital signs do show some hypotension with last reading 83/49. ASSESSMENT: 1. Hypotension. 2. Degenerative joint disease left hip with left total hip arthroplasty. PLAN: We plan to give Ms. Grossman 1 L fluid bolus normal saline to see if we can correct her blood pressure at this time. We will keep an eye on it tonight. We will check back on her in the morning and see how she is doing at that time. She will begin mobilizing with physical therapy. Dictated by SUSAN Castañeda for Alton Shell MD cc: SUSAN Castañeda MD
[2019-09-19] MEDS: PRILOSEC PO SCH (22:30)
[2019-09-20] MEDS: CELEBREX PO SCH ×2 (00:37→11:21)
[2019-09-20] MEDS: COLACE PO SCH ×3 (00:38→22:03)
[2019-09-20] MEDS: PERIDEX MT SCH ×3 (00:38→22:04)
[2019-09-20] MEDS: PRAVACHOL PO SCH ×2 (00:40→22:03)
[2019-09-20] MEDS: ULTRAM PO SCH ×6 (00:41→22:02)
[2019-09-20] MEDS: OXY IR PO PRN (02:01)
[2019-09-20] MEDS: NS 1,000 ML IV SCH ×2 (04:55→16:01)
[2019-09-20] MEDS: TYLENOL PO SCH ×4 (04:55→22:03)
[2019-09-20 07:13] LABS: HEMATOCRIT 21.3 % (37.0-47.0); HEMOGLOBIN 6.9 g/dL (12.0-16.0)
[2019-09-20 07:32] LABS: CALCIUM 7.6 mg/dL (8.8-10.2); CREATININE 1.6 mg/dL (0.5-0.9); POTASSIUM 4.4 mmol/L (3.5-5.1)
[2019-09-20] MEDS ORDERED: PRINIVIL PO SCH (09:00)
[2019-09-20] MEDS ORDERED: NORVASC PO SCH (09:00)
[2019-09-20] MEDS ORDERED: ASPIRIN PO SCH (09:00)
[2019-09-20] MEDS: PEPCID PO SCH (11:18)
[2019-09-20] MEDS: ASPIRIN EC PO SCH (11:18)
[2019-09-20] MEDS: SYNTHROID PO SCH (11:19)
[2019-09-20] MEDS: KLONOPIN PO SCH (11:19)
[2019-09-20] MEDS: PRILOSEC PO SCH ×2 (11:20→22:02)
[2019-09-20] MEDS: CELEXA PO SCH (11:21)
[2019-09-20] MEDS: FERROUS SULFATE PO SCH (11:22)
[2019-09-20] MEDS: PERICOLACE PO SCH ×2 (11:25→22:03)
--- NOTE | 2019-09-20 12:59 | Diag Imaging Result Doc PS360 ---
EXAM: KUB ABDOMEN HISTORY: abd pain TECHNIQUE: Two views COMPARISON: None. FINDINGS: Moderate scoliosis with degenerative spine changes. There is stool throughout the colon. No bowel obstruction. No organomegaly. No abnormal abdominal calcifications. Orthopedic replaced left hip. IMPRESSION: Constipation Electronically signed by Mason Fuller 09/20/2019 12:56 PM
[2019-09-20] MEDS: KEFZOL 1 GM/D5W 1 GM/50 ML IVPB IV SCH ×2 (13:30→22:04)
[2019-09-20 14:13] LABS: HEMATOCRIT 27.6 % (37.0-47.0); HEMOGLOBIN 9.2 g/dL (12.0-16.0)
--- NOTE | 2019-09-20 15:14 | ORTHOPAEDICS PROGRESS NOTE ---
DATE: 09/20/2019 Ms. Grossman is seen status post a hardware removal of a left femoral neck fracture and conversion to a total hip. She is awake and alert at the present time. She does feel slightly weak. Her hematocrit is 21.3 due to some postop blood loss. We will transfuse her 1 unit today. I have also asked the hospitalist to see her just for some geriatric care. We will plan on mobilizing her. There are no signs of infection, arterial bleeding, or DVT. We will plan on discharge placement to a possible rehab center or home health, pending her progress. cc: MD Justen Saini MD
--- NOTE | 2019-09-20 21:07 | CONSULTATION ---
DATE OF CONSULTATION: 09/20/2019 CONSULTING PHYSICIAN: Alton Shell MD REASON FOR CONSULTATION: Geriatric management. HISTORY OF PRESENT ILLNESS: Ms. Kristie Grossman is a 79-year-old female who back in June had a left total hip but continued to have severe pain from it, and so she has had hardware change out, and that was performed yesterday by Dr. Shell. Reviewing her medical history and her labs, it appears she has some anemia for which she is supposed to get 2 units of packed red blood cells today. She complains of some abdominal discomfort, likely with constipation. We will treat that as well. She is pleasantly confused, and she does have a little bit of elevation in her creatinine for which she is getting fluids for. Otherwise, vital signs are stable. Blood pressure might be a little bit low, but she is about to get the blood right now. Also, it appears she has a pretty good UTI so we will treat that with antibiotics. PAST MEDICAL HISTORY: 1. Anemia. 2. Anxiety. 3. Depression. 4. Gout. 5. Hypertension. 6. Hyperlipidemia. 7. Hypothyroidism. 8. Rheumatoid arthritis. 9. Scoliosis. 10. History of atrial fibrillation. 11. 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 12. Peptic ulcer disease. 13. History of symptomatic bradycardia with pacemaker. PAST SURGICAL HISTORY: 1. Hysterectomy. 2. Bilateral total knee. 3. Left hip replaced. 4. Bilateral tubal ligation. 5. Left ankle repair. 6. Permanent pacemaker. 7. Iliac artery stent 04/19/2019. SOCIAL HISTORY: . Family supportive. No alcohol, tobacco, or illicit drug use. FAMILY HISTORY: Patient is too confused to report family history. REVIEW OF SYSTEMS: Complains of abdominal pain. Ten-point review of systems were completed, and all were negative except for those mentioned above in HPI. She does complain of left hip pain as well. PHYSICAL EXAMINATION: Vital Signs: Temperature 99.3 degrees, heart rate 95, respiratory rate 18, blood pressure 91/62, O2 saturation 100% on 2 L nasal cannula. General: Ms. Kristie Grossman is a 79- year-old female. She is actually oriented but very pleasantly confused. States that she had not had her surgery yet, that it was supposed to be tomorrow despite being shown that she has a drain and dressings on her left hip. HEENT: Atraumatic, normocephalic. Pupils equal, round, reactive to light. Extraocular movements intact. Mucous membranes are dry. Neck: Trachea midline. Cardiovascular: S1, S2. Regular rate and rhythm. No rubs, gallops, murmurs. No lower extremity edema, maybe trace in the left hip area. +2 dorsalis and radial pulses. Negative JVD or carotid bruits. Pulmonary: Clear to auscultation bilateral breath sounds. No accessory muscle use or work of breathing noted. Gastrointestinal: Soft, nontender, nondistended. Positive bowel sounds x4. Extremities: Moves all extremities equally except for the left extremity due to difficulties secondary to surgery, decreased range of motion. Neurologic: Oriented x3 but very pleasantly confused. Sensory is intact. Skin: Warm, dry, intact except for the left hip. She has got dry dressing on top of it along with accordion drain, dark old blood. LABORATORY DATA: We do not have a current CBC. Hemoglobin is 6.9, hematocrit 21.3, sodium 133, potassium 4.4, BUN 33, creatinine is 1.6, glucose 115, calcium 7.6. Urinalysis yesterday: Trace protein, trace ketones, large leukocytes, too numerous to count white blood cells, 4+ bacteria and micro shows gram-negative rods. IMAGING: None. She does have an EKG. It was way back in August though, and it was sinus rhythm. ASSESSMENT AND PLAN: 1. Total left hip hardware replacement by Dr. Shell. Postoperative day 1, accordion drain in the left hip with dark old blood. Dressing is dry and intact. She sitting up straight in the bed, management of that by Orthopedics. 2. Metabolic encephalopathy, could be some postop encephalopathy as well. She does have a little bit of acute kidney injury and a urinary tract infection, which could also be causing this confusion. There is no reported history of dementia so maybe it is just a mild delirium. 3. Acute blood loss anemia also with medical history of anemia, and she is going to receive 2 units of blood today. 4. Hypothyroidism. Continue Synthroid. 5. Urinary tract infection. We will do Kefzol 1 g q.12 hours, renally dosed. She had a urine culture in June that was positive Klebsiella pneumoniae, which was resistant to ampicillin and nitrofurantoin and sensitive to cefazolin, and then back in March, she had Escherichia coli positive urinary tract infection. It was extended spectrum beta-lactamase negative, but it was resistant to ampicillin, gentamicin and Levaquin but sensitive to cefazolin so again this is why cefazolin was used. 6. Abdominal pain, likely constipation. She has not had a bowel movements so we will add a stool softener and will do an abdominal x-ray. 7. Acute kidney injury. She is on intravenous fluid hydration at this time. 8. Hyperglycemia. We will just monitor that. No history of diabetes. 9. Gastroesophageal reflux disease. She is on Pepcid. 10. Hypertension. She is on lisinopril. We may have to hold that if she is still hypotensive through the night, so let us monitor that. Actually, I am going to put a hold on that. She does have some acute kidney injury. 11. Hyperlipidemia. Continue statin. 12. Deep venous thrombosis prophylaxis. Sequential compression devices for now. Dictated by SUSAN Ye for Justen Ku MD cc: SUSAN Ye MD
--- NOTE | 2019-09-20 22:20 | PROGRESS NOTE ---
DATE: 09/20/2019 SUBJECTIVE: Today, Ms. Grossman refers to be doing well. She is day 1 post left anterior hip replacement and removal of cannulated screws on the left hip hardware. She seems to be doing well. OBJECTIVE: Vital signs: Blood pressure is 112/70, pulse of 95, respirations 18, temperature is 98.2 degrees. Of note, Ms. Grsosman ran a couple low blood pressures yesterday. General: Ms Grossman is a 79-year-old elderly female, she is in bed, no distress. HEENT: Mucosa is pink and moist. Anicteric. Acyanotic. Neck: Supple. Chest: Good air entry bilaterally. There was no crepitations, no rhonchi. Cardiovascular: Regular rate and rhythm. No murmurs, no rubs, no gallops. Gastrointestinal: Abdomen is soft, nontender. Bowel sounds present. Extremities: No pedal edema. There is bilateral old knee scars consistent with the knee replacement surgery. There is a fresh anterior left surgical incision which is currently covered. There is a draining system in the left upper thigh. 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 LABORATORY DATA: Hemoglobin had gone down to about 6.2 this morning. She got a unit of blood. Repeat has been up to 9.2. Chemistry is also reviewed, creatinine is up to 1.6. ASSESSMENT: 1. 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 The patient seems to be doing well after the surgery. 2. Hypotension secondary to hypovolemia. Improved with blood and fluid resuscitation. 3. Anemia of acute blood loss. Patient is status post 1 packed red blood cells transfusion. Hemoglobin and hematocrit has improved. 4. Acute kidney injury with creatinine up to 1.6. We will continue with IV fluids. I have also discontinued the Celebrex and we will avoid any other potential nephrotoxins. 5. The patient's other comorbidities include hypothyroidism, paroxysmal atrial fibrillation, hypertension, and aortic atherosclerotic disease status post superior mesenteric stent placement. The patient so far is stable from all her other comorbidities. cc: Justen Ku MD
[2019-09-21] MEDS: TYLENOL PO SCH ×3 (05:44→17:57)
[2019-09-21] MEDS: ULTRAM PO SCH ×3 (05:44→17:56)
[2019-09-21 07:14] LABS: BASO# 0.02 X1000 (0.0-0.2); BASO% 0.1 % (0.0-0.8); EOS# 0.37 X1000 (0.0-0.7); EOS% 2.4 % (0.0-10.0); HEMATOCRIT 28.5 % (37.0-47.0); HEMOGLOBIN 9.3 g/dL (12.0-16.0); IMM GRAN# 0.05 X1000 (0.0-0.04); IMM GRAN% 0.3 % (0.0-0.5); LYMPH# 2.17 X1000 (1.2-3.4); LYMPH% 13.9 % (20.5-51.1); MCH 31.1 PG (27-31); MCHC 32.6 g/dL (33-37); MCV 95.3 FL (81-99); MONO% 8.3 % (1.7-9.3); MPV 11.2 FL (7.4-10.4); NEUT# 11.67 X1000 (1.4-6.5); PLT 189 X1000 (130-400); RBC 2.99 XMIL (4.2-5.4); RDW 19.1 % (11.5-14.5); WBC 15.58 X1000 (4.8-10.8)
[2019-09-21 07:30] LABS: ALB/GLOB RATIO 0.8; ALBUMIN 2.9 g/dL (3.5-5.0); CALCIUM 8.3 mg/dL (8.8-10.2); CREATININE 1.2 mg/dL (0.5-0.9); MAGNESIUM 2.1 mg/dL (1.5-2.7); POTASSIUM 4.3 mmol/L (3.5-5.1); TOTAL BILIRUBIN 0.36 mg/dL (0.20-1.00); TOTAL PROTEIN 6.5 g/dL (6.3-8.3)
[2019-09-21] MEDS: NS 1,000 ML IV SCH (08:09)
[2019-09-21] MEDS ORDERED: ROCEPHIN 1 GM in NS 50 ML IV SCH (09:00)
[2019-09-21] MEDS: PERIDEX MT SCH ×2 (09:06→21:27)
[2019-09-21] MEDS: PEPCID PO SCH (09:06)
[2019-09-21] MEDS: CELEXA PO SCH (09:06)
[2019-09-21] MEDS: COLACE PO SCH ×2 (09:07→21:25)
[2019-09-21] MEDS: FERROUS SULFATE PO SCH (09:07)
[2019-09-21] MEDS: ASPIRIN EC PO SCH (09:07)
[2019-09-21] MEDS: PRILOSEC PO SCH ×2 (09:07→21:25)
[2019-09-21] MEDS: SYNTHROID PO SCH (09:08)
[2019-09-21] MEDS: PERICOLACE PO SCH ×2 (09:08→21:27)
[2019-09-21] MEDS: KEFZOL 1 GM/D5W 1 GM/50 ML IVPB IV SCH (09:15)
[2019-09-21] MEDS: KLONOPIN PO SCH (09:15)
--- NOTE | 2019-09-21 09:23 | Diag Imaging Result Doc PS360 ---
EXAM: CHEST-1 VIEW 09/21/2019 HISTORY: REHAB TECHNIQUE: AP portable at 0912 COMMENT: There is opacification of the left base with obscuration of the heart border and hemidiaphragm. This is worse than on 07/12/2019. IMPRESSION: Worsened atelectasis or pneumonia in the lingula and left lower lobe. Electronically signed by Cyril Alvarez 09/21/2019 9:21 AM
[2019-09-21] MEDS ORDERED: LOVENOX SUBQ SCH (14:15)
--- NOTE | 2019-09-21 18:53 | PROGRESS NOTE ---
DATE: 09/21/2019 SUBJECTIVE: Today Ms. Grossman refers to be doing well. No new complaints. She has already been evaluated by PT and Orthopedics today. OBJECTIVE: Vital signs: Blood pressure is 126/58, pulse of 80, respirations 16, temperature 97.6. General: Ms. Grossman is a 79-year-old female. She is in bed in no distress. HEENT: Mucosa is pink and moist. Anicteric. Acyanotic. Neck: Supple. Chest: Good air entry bilaterally. No crepitations. No rhonchi. Cardiovascular: Regular rate and rhythm. No murmurs, no rubs, no gallops. Abdomen: Soft, nontender. Bowel sounds present. Extremities: No pedal edema. There is an old scar on the anterior knee from previous orthopedic knee replacement surgery. There is a fresh anterior left surgical incision on the upper thigh. Drainage system has already been removed. 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 LABORATORY DATA: WBC is up to 15.58, hemoglobin is 9.3, platelet count of 189. Chemistry is also reviewed. Creatinine is down to 1.2. The patient's urine has shown Klebsiella pneumoniae. ASSESSMENT AND PLAN: 1. Status post left anterior hip replacement due to a nonunion of a left femoral neck fracture with painful hardware. The patient is day 2 postop. She seems to be doing well. The drainage system in the hip has been removed. Physical therapy has evaluated her. 2. Hypertension on presentation secondary to hypovolemia, improved. 3. Anemia of acute blood loss. The patient is status post 1 packed red blood cell transfusion. Hemoglobin has improved from 6.9 to 9.3. 4. Hypothyroidism. Patient is on medications. 5. Abdominal aorta atherosclerosis. The patient is status post superior mesenteric stent placement for chronic mesenteric syndrome. 6. Acute kidney injury secondary to volume depletion, improved with IV resuscitation. The creatinine is down to 1.2. We will encourage Ms. Grossman to continue with adequate oral replacement. 7. Klebsiella urinary tract infection. Ms. Grossman refers that she was having some urinary discomfort prior to hospitalization. She had this Klebsiella as well in a sample done in June. Unsure if this is just a commensal pathogen there, or if it was causing symptoms before she came in. She was on Ancef for surgical prophylaxis. We will continue with PO Ancef for a total of 5 days for urinary tract infection treatment. Her white cell count was slightly elevated. cc: Justen Ku MD [facility]PITALKristyn
--- NOTE | 2019-09-21 20:25 | ORTHOPAEDICS PROGRESS NOTE ---
DATE: 09/21/2019 Ms. Grossman is seen status post anterior hip replacement. She is doing better today. She has received blood transfusion for her anemia. Vital signs are doing better. Her incision is clean and dry. She is gradually mobilizing it. We will plan on continuing mobilizing her today and discontinuing lines. We will consider discharge home with home health or inpatient rehab tomorrow. cc: MD Justen Saini MD
[2019-09-21] MEDS: OXY IR PO PRN (21:26)
[2019-09-21] MEDS: KEFLEX PO SCH (21:26)
[2019-09-21] MEDS: PRAVACHOL PO SCH (21:27)
[2019-09-22] MEDS: ULTRAM PO SCH ×2 (01:37→09:12)
[2019-09-22] MEDS: TYLENOL PO SCH ×2 (01:38→09:10)
[2019-09-22] MEDS: OXY IR PO PRN (01:38)
[2019-09-22 07:05] LABS: AGAP 10; ALBUMIN 2.5 g/dL (3.5-5.0); BUN 17 mg/dL (8-22); CHLORIDE 103 mmol/L (98-107); COSMO 272; CREATININE 0.8 mg/dL (0.5-0.9); ESTIMATED GFR > 60; GLUCOSE 74 mg/dL (70-104); PHOSPHORUS 2.4 mg/dL (2.7-4.5); POTASSIUM 4.3 mmol/L (3.5-5.1); SODIUM 136 mmol/L (136-145); TCO2 23 mmol/L (25-35)
[2019-09-22 07:14] LABS: AGAP 9; ALBUMIN 2.7 g/dL (3.5-5.0); ALKALINE PHOSPHATASE 89 U/L (32-104); BUN 15 mg/dL (8-22); CALCIUM 8.2 mg/dL (8.8-10.2); CHLORIDE 105 mmol/L (98-107); COSMO 273; CREATININE 0.8 mg/dL (0.5-0.9); ESTIMATED GFR > 60; GLUCOSE 73 mg/dL (70-104); GOT 40 U/L (10-30); GPT 7 U/L (10-36); MAGNESIUM 1.9 mg/dL (1.5-2.7); POTASSIUM 4.6 mmol/L (3.5-5.1); SODIUM 137 mmol/L (136-145); TCO2 23 mmol/L (25-35); TOTAL PROTEIN 5.3 g/dL (6.3-8.3)
[2019-09-22 07:19] LABS: BASO# 0.02 X1000 (0.0-0.2); BASO% 0.2 % (0.0-0.8); EOS# 1.25 X1000 (0.0-0.7); EOS% 10.6 % (0.0-10.0); HEMATOCRIT 26.2 % (37.0-47.0); HEMOGLOBIN 8.4 g/dL (12.0-16.0); LYMPH# 1.76 X1000 (1.2-3.4); MCHC 32.1 g/dL (33-37); MCV 96.7 FL (81-99); MONO# 1.22 X1000 (0.11-0.59); MONO% 10.4 % (1.7-9.3); MPV 11.4 FL (7.4-10.4); NEUT# 7.51 X1000 (1.4-6.5); NEUT% 63.8 % (42.2-75.2); PLT 186 X1000 (130-400); RBC 2.71 XMIL (4.2-5.4); WBC 11.76 X1000 (4.8-10.8)
[2019-09-22 07:59] LABS: BASO 2 % (0-1); EOS 2 % (1-10); LYMPHS 18 % (21-51); MONO 8 % (1-9); SEGS 70 % (42-75)
[2019-09-22] MEDS: CELEXA PO SCH (09:10)
[2019-09-22] MEDS: KLONOPIN PO SCH (09:10)
[2019-09-22] MEDS: PRILOSEC PO SCH (09:10)
[2019-09-22] MEDS: KEFLEX PO SCH (09:10)
[2019-09-22] MEDS: PERICOLACE PO SCH (09:10)
[2019-09-22] MEDS: PEPCID PO SCH (09:11)
[2019-09-22] MEDS: PERIDEX MT SCH (09:11)
[2019-09-22] MEDS: COLACE PO SCH (09:11)
[2019-09-22] MEDS: ASPIRIN EC PO SCH (09:11)
[2019-09-22] MEDS: FERROUS SULFATE PO SCH (09:11)
[2019-09-22] MEDS: SYNTHROID PO SCH (09:11)
[2019-09-22] MEDS ORDERED: FLU VACCINE IM ONE (11:26)
[2019-09-22 12:16] VITALS: BP 119/57
--- NOTE | 2019-09-23 16:14 | DISCHARGE SUMMARY ---
ADMISSION DATE: 09/19/2019 DISCHARGE DATE: 09/22/2019 ADMITTING DIAGNOSIS: Degenerative joint disease of the left hip with left femoral neck fracture and painful hardware. DISCHARGE DIAGNOSIS: Degenerative joint disease of the left hip with left femoral neck fracture and painful hardware. PRINCIPLE PROCEDURE: Left total hip arthroplasty with removal of cannulated screws. PAST MEDICAL HISTORY: Includes anemia, anxiety, depression, gout, hypertension, high cholesterol, hyperthyroidism, pacemaker defibrillator, RA, scoliosis. DISCHARGE MEDICATIONS: Include Xarelto, [place], cephalexin. ALLERGIES: There are no known drug allergies. HOSPITAL COURSE: Patient was taken to the operating room on 09/19/2019 where a left total hip arthroplasty was performed. She underwent this procedure well and she was transferred to the recovery room. She was then later transferred to the surgical floor where she was doing fine. When we went to check on her next day, she did have some anemia. Hospitalist was consulted to come see the patient. She did undergo a blood transfusion. She has been slightly weak while she has been here in the hospital and had some problems with ambulation. We discontinued her Hemovac drain after 2 days and roughly 150 mL of output. Physical therapy continued to work with the patient. She was able to spontaneously void. She transitioned to oral pain medication. Her incision remained clean, dry, and intact during hospital course. There is no pain with calf squeeze. There is good sensation to the extremity. She is felt ready to be discharged on 09/22/2019 to home with home therapy. DISPOSITION: She is discharged home with home therapy. FOLLOWUP: She is to follow up Dr. Shell in 10 to 14 days. DISCHARGE INSTRUCTIONS: She is to keep the area clean, dry and covered. Dictated by SUSAN Castañeda for Alton Shell MD cc: SUSAN Castañeda MD Omar J. Sosa-Chirinos, MD
--- NOTE | 2019-09-23 20:49 | DISCHARGE SUMMARY ---
ADMISSION DATE: 09/19/2019 DISCHARGE DATE: 09/22/2019 DISCHARGE DIAGNOSIS: 1. Status post left anterior hip replacement due to nonunion of the left femoral neck fracture with painful hardware, procedure done on 09/19/2019, with removal of cannulated screws of the left hip/hardware. 2. Hypotension due to hypovolemia, resolved. 3. Hypovolemia, resolved. 4. Anemia of acute blood loss, status post 1 PRBC. 5. Hypothyroidism. 6. Abdominal aortic arteriosclerosis. 7. Acute kidney injury, resolved. 8. Klebsiella urinary tract infection. HOSPITAL COURSE: A 79-year-old female who back in June had a left total hip replaced but continue to have severe pain from it, and she also has had hardware changed out, she was complaining of some abdominal discomfort, likely with constipation. She was admitted on 09/19/2019. She was pleasantly confused, a little bit elevated creatinine due to some dehydration, otherwise her vital signs were stable except for a little bit of borderline low blood pressure, and she was about to get blood at that time, she also has a UTI and microbiology showed Klebsiella pneumoniae. She was placed on antibiotics as well. She was taken to the OR on 09/19/2019 due to nonunion of the left femoral neck fracture with painful hardware that has actually been removed and they did a left anterior hip replacement, the patient tolerated well the procedure, echo mentioned before she received 2 units of PRBCs. Hemoglobin was much better after the transfusion, she came in with acute on chronic kidney disease, but now is back to baseline after gentle IV fluids, we offered the patient and the family the possibility of sending this patient to a rehab center but they refused it and they want go ahead and take her home with home health, today this patient seems to be stable. Vital signs are stable as well as her laboratory, she will be discharged home with antibiotics, pain medication, home health as well, family member at the bedside. I believe it is her son. She will need to follow up with Dr. Shell in 10 to 14 days to evaluate this patient again. She seems to be stable. VITAL SIGNS: Temperature 97.5 degrees, pulse 77, respiratory rate 18, blood pressure 118/57, oxygen saturation 97% on room air. HEENT: Head normocephalic, no trauma. PERRLA. Neck is supple. No JVD. No masses. Central trachea. Chest: Clear to auscultation. No wheezing. No rales. Abdomen: Soft, nontender, nondistended. No hepatosplenomegaly. Extremities: No edema. She has an old scar on the anterior knee from previous orthopedic replacement surgery and there is a new left surgical incision on the upper thigh. It looks fine. She used to have a drain, but it has been removed. 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 She was following commands. She was able to recognize family members at the bedside. She seems to be at her baseline. LABORATORY: WBC 11.7, hemoglobin 8.4, hematocrit 26.2, platelets 186,000, sodium 136, potassium 4.3, chloride 103, bicarbonate 23, BUN 17, creatinine 0.8, glucose 74, calcium 8, phosphorus 2.4, AST 40, ALT 7, alkaline phosphatase 89, albumin 2.5. DISCHARGE MEDICATIONS: 1. Amlodipine 2.5 mg p.o. daily. 2. Aspirin 325 mg p.o. daily. 3. Keflex 500 mg p.o. q. 12 hours. 4. Celexa 40 mg p.o. daily. 5. Clonazepam 0.5 mg p.o. daily. 6. Bentyl 24.8 mg p.o. 4 times a day as needed. 7. Docusate 100 mg p.o. b.i.d. 8. Ferrous sulfate 325 mg p.o. with breakfast. 9. [place] 7.5 q. 6 hours as needed for pain. 10. Levothyroxine 75 mcg p.o. daily. 11. Lisinopril 10 mg p.o. daily. 12. Loperamide 2 mg p.o. 4 times a day as needed. 13. Meclizine 25 mg p.o. t.i.d. as needed. 14. Omeprazole 20 mg p.o. b.i.d. 15. Zofran 4 mg p.o. q. 6 hours as needed. 16. Pravastatin 40 mg p.o. at bedtime. 17. Xarelto 10 mg p.o. daily. 18. Lorenza Colace 2 tablets p.o. b.i.d. Follow up with Dr. Shell in 10 to 14 days. cc: Prabhu Romero MD
== END 2019-09-22 12:39 | disposition home health service (06) | DRG 469 ==
LOC: SURHOLD 06:20 → 4N 08:37
PROVIDERS: ADMIT Internal Medicine; ATTEND Orthopaedic Surgery Adult Reconstructive Orthopaedic Surgery